=== PATIENT | male | born 1960 | race Caucasian/White ===

== ENCOUNTER → 2016-10-30 | Outpatient (CLI) | payer MEDICARE ==
--- NOTE | 2016-10-30 08:47 | MR ---
EXAMINATION TYPE: MR cervical spine wo/w con DATE OF EXAM ORDERED: 10/30/2016 8:36 AM HISTORY: Cervical post laminectomy M96.1 radiculopathy M54.12. TECHNOLOGIST HISTORY AT TIME OF EXAM: Cervical post laminectomy radiculopathy IV CONTRAST: 15 of MultiHance COMPARISON: None. TECHNIQUE: Multiplanar, multiecho imaging of the cervical spine was obtained with and without the in travenous administration of 15 of MultiHance on a 1.5 dolores magnet. FINDINGS: There has been a previous ACDF at C5-6. There is a mild retrograde listhesis of C3 on C4 an d C4 on C5. Alignment is otherwise normal. Atlantoaxial relationships are normal. There is a normal craniocervical junction. There is a minimally prominent central canal. Cord signal is otherwise normal. At C2-C3, there is a tiny central disc displacement mildly deforming the thecal sac without cord cont act. At C3-C4, there is bilateral intervertebral foraminal narrowing. There is a diffuse disc displacement slightly eccentric towards the right. This is deforming the thecal sac without cord contact. There i s mild facet arthropathy. The uncovertebral joints are unremarkable. At C4-C5, there is disc space loss. There is bilateral intervertebral foraminal narrowing worse on th e right than the left. There is a small, diffuse disc displacement deforming the thecal sac with cord contact but without compression. There is mild uncovertebral joint disease. There is mild facet arth ropathy. At C5-C6, this level is fused. There is mild right-sided intervertebral foraminal narrowing. The face ts are unremarkable. The uncovertebral joints are obscured. At C6-C7, there is disc space loss. There is a diffuse disc displacement deforming the thecal sac wit h cord contact. There is bilateral intervertebral foraminal narrowing. The facets are unremarkable. T he uncovertebral joints are obscured. At C7-T1, no definite abnormality is seen. IMPRESSION: 1. POSTSURGICAL CHANGE. 2. DIFFUSE DEGENERATIVE DISC DISEASE. 3. MULTILEVEL INTERVERTEBRAL FORAMINAL NARROWING.
== END | disposition home or self-care (01) ==
LOC: RADMRIMAIN 08:00
PROVIDERS: ATTEND Anesthesiology Pain Medicine
DX: M50.10 Cervical disc disorder with radiculopathy, unspecified cervical region (principal); M99.71 Connective tissue and disc stenosis of intervertebral foramina of cervical region
CPT/HCPCS: 72156; A9577

== ENCOUNTER 2018-05-06 10:28 | Emergency (ER) | payer MEDICARE ==
[2018-05-06 10:41] VITALS: BP 147/86; PULSE 75; RESP 20; TEMP 98
[2018-05-06] MEDS ORDERED: CLINDAMYCIN 150 MG/ML 4 ML VIAL IM STA (10:58)
--- NOTE | 2018-05-06 11:06 | ED ---
General Adult HPI - General Chief complaint: Dental/Oral Stated complaint: facial swelling Time Seen by Provider: 05/06/18 10:46 Source: patient, RN notes reviewed Mode of arrival: ambulatory Limitations: no limitations - History of Present Illness Initial comments: Patient is a pleasant 57-year-old male presenting to the emergency Department with complaints of dental pain. Patient has known poor dentition. Patient did go to urgent care 2 days ago and was started on clindamycin 300 mg 3 times a day. Patient does have a history of similar problems previously. Patient is having some swelling of his left upper face. No eye pain or visual changes. Patient states his eyelid was a little bit swollen earlier and that has improved. No fevers. - Related Data Home Medications Medication Instructions Recorded Confirmed Albuterol Inhaler [Ventolin Hfa 1 - 2 puff INHALATION RT-Q6H PRN 09/24/15 Inhaler] Budesonide/Formoterol Fumarate 2 puff INHALATION RT-BID 09/24/15 10/25/15 [Symbicort 160-4.5 Mcg Inhaler] Tiotropium 18 Mcg/Puff [Spiriva] 1 cap INHALATION RT-DAILY 09/24/15 10/25/15 oxyCODONE HCL/ACETAMINOPHEN 1 tab PO Q6HR PRN 09/24/15 10/25/15 [Percocet 10-325 mg] Albuterol Nebulized [Ventolin 2.5 mg INHALATION RT-TID 09/25/15 10/25/15 Nebulized] Previous Rx's Medication Instructions Recorded Aspirin 81 mg PO DAILY #30 chewable 09/25/15 Isosorbide Mononitrate ER [Imdur] 30 mg PO DAILY #30 tab.er.24h 09/25/15 Nitroglycerin Sl Tabs [Nitrostat] 0.4 mg SUBLINGUAL Q5M PRN #1 bottle 09/25/15 Ciprofloxacin HCl [Cipro] 500 mg PO Q12HR #14 tablet 10/25/15 Dicyclomine [Bentyl] 10 mg PO TID #20 capsule 10/25/15 Ondansetron Odt [Zofran ODT] 4 mg PO Q8HR PRN #20 tab 10/25/15 Clindamycin [Cleocin] 150 mg PO TID #30 capsule 05/06/18 Ibuprofen [Motrin] 800 mg PO TID PRN #20 tab 05/06/18 Allergies Allergy/AdvReac Type Severity Reaction Status Date / Time Penicillins Allergy Rash/Hives Verified 05/06/18 10:41 shellfish derived [Shellfish] Allergy Anaphylaxis Verified 05/06/18 10:41 Review of Systems ROS Statement: Those systems with pertinent positive or pertinent negative responses have been documented in the HPI. ROS Other: All systems not noted in ROS Statement are negative. Constitutional: Denies: fever Eyes: Denies: eye pain, vision change ENT: Reports: dental pain Respiratory: Denies: cough Cardiovascular: Denies: chest pain Endocrine: Denies: fatigue Gastrointestinal: Denies: abdominal pain Genitourinary: Denies: dysuria Musculoskeletal: Denies: back pain Skin: Denies: rash Neurological: Denies: weakness Past Medical History Past Medical History: COPD Additional Past Medical History / Comment(s): Pneumothorax, Emphesema History of Any Multi-Drug Resistant Organisms: None Reported Past Surgical History: Back Surgery, Orthopedic Surgery Additional Past Surgical History / Comment(s): Neck surg Past Anesthesia/Blood Transfusion Reactions: No Reported Reaction Past Psychological History: No Psychological Hx Reported Smoking Status: Former smoker Past Alcohol Use History: None Reported Past Drug Use History: Marijuana - Past Family History Mother Family Medical History: Myocardial Infarction ([place]) Additional Family Medical History / Comment(s): at 42 Father Family Medical History: Myocardial Infarction ([place]) Additional Family Medical History / Comment(s): at 67 General Exam Limitations: no limitations General appearance: alert, in no apparent distress Head exam: Present: atraumatic Eye exam: Present: normal appearance, PERRL, EOMI, other (Mild swelling of the lower eyelid extending from the maxillary region). Absent: conjunctival injection, nystagmus, periorbital tenderness ENT exam: Present: other (Poor dentition with multiple caries and fractured/ missing teeth. There is minimal swelling and moderate to severe tenderness left second premolar. There is some mild left maxillary swelling. No drainable abscess is visualized. No airway involvement.) Neck exam: Present: normal inspection Respiratory exam: Present: normal lung sounds bilaterally Cardiovascular Exam: Present: regular rate, normal rhythm GI/Abdominal exam: Present: soft. Absent: tenderness Extremities exam: Present: normal inspection Neurological exam: Present: alert Psychiatric exam: Present: normal affect, normal mood Skin exam: Present: normal color Course Vital Signs 05/06/18 10:39 Temperature 98.0 F Pulse Rate 75 Respiratory 20 Rate Blood Pressure 147/86 O2 Sat by Pulse 99 Oximetry Medical Decision Making - Medical Decision Making Patient will be provided additional clindamycin. Patient does request Motrin 800. Patient states previously this is been the only thing that works well for him. Disposition Clinical Impression: Toothache Disposition: HOME SELF-CARE Condition: Stable Instructions: Dental Abscess (ED), Toothache (ED) Additional Instructions: Please follow-up with dentist and primary care physician in the next day or 2 for recheck. If symptoms worsen please do return to the emergency department. You may need further treatment with inpatient IV antibiotics or opening of the area or other. Return for increased pain, swelling, fevers, eye problems, redness, worsening symptoms or other concerns. Please take the additional clindamycin for a total of 450 mg 3 times daily. Prescriptions: Clindamycin [Cleocin] 150 mg PO TID #30 capsule Ibuprofen [Motrin] 800 mg PO TID PRN #20 tab PRN Reason: Pain Is patient prescribed a controlled substance at d/c from ED?: No Referrals: Luci Dubon DO [Primary Care Provider] - 1-2 days Time of Disposition: 11:05
== END 2018-05-06 11:24 | disposition home or self-care (01) ==
LOC: EC 10:28
DX: K08.89 Other specified disorders of teeth and supporting structures (principal); J44.9 Chronic obstructive pulmonary disease, unspecified; Z87.891 Personal history of nicotine dependence; Z79.51 Long term (current) use of inhaled steroids; Z79.899 Other long term (current) drug therapy; Z88.0 Allergy status to penicillin; Z91.013 Allergy to seafood
CPT/HCPCS: 96372; 99282

== ENCOUNTER → 2018-07-08 | Outpatient (CLI) | payer MEDICARE ==
--- NOTE | 2018-07-08 16:50 | CTL ---
EXAMINATION TYPE: CT Low Dose Lung DATE OF EXAM ORDERED: 07/08/2018 HISTORY: Personal history tobacco use. Lung cancer screening CT DLP: 58.[address] CTDI: 1.4 mGy Automated exposure control for dose reduction was used. SCREENING VISIT: 1 COMPARISON: None TECHNIQUE: Low dose computed tomography scan was performed through the chest at 1 mm thick sections a nd reconstructed images in the coronal plane at [address] DIAGNOSTIC QUALITY: Satisfactory FINDINGS: LUNG NODULES: None. LUNGS: COPD: Severity: Mild Fibrosis: Severity: Mild Lymph nodes: None Other findings: RIGHT PLEURAL SPACE: Effusion: None Calcification: None Thickening: Apical pleural thickening is present Pneumothorax: None LEFT PLEURAL SPACE: Effusion: None Calcification: None Thickening: Apical pleural thickening again noted Pneumothorax: None HEART: Heart Size: Small Coronary calcification: None Pericardial effusion: None OTHER FINDINGS: Upper abdomen: Unremarkable Bony thorax: Unremarkable Supraclavicular region: Unremarkable Other: IMPRESSION: Negative FOLLOW UP CT CHEST RECOMMENDATION: [address] LUNG RAD: 1
== END | disposition home or self-care (01) ==
LOC: RADCTMAIN 15:30
PROVIDERS: ATTEND Family Medicine
DX: Z12.2 Encounter for screening for malignant neoplasm of respiratory organs (principal); Z87.891 Personal history of nicotine dependence

== ENCOUNTER → 2018-10-05 | Outpatient (CLI) | payer MEDICARE ==
--- NOTE | 2018-10-05 14:34 | XR ---
EXAMINATION TYPE: XR foot complete RT DATE OF EXAM: 10/05/2018 CLINICAL HISTORY: pain TECHNIQUE: Frontal, lateral and oblique images of the right foot are obtained. COMPARISON: None. FINDINGS: There is no acute fracture/dislocation evident. Severe degenerative narrowing first metata rsal phalangeal joint spur formation noted and subchondral sclerosis. The overlying soft tissue appea rs unremarkable. IMPRESSION: There is no acute fracture or dislocation. ICD 10 NO FRACTURE, INITIAL EVALUATION
== END | disposition home or self-care (01) ==
LOC: RADXRMAIN 14:11
PROVIDERS: ATTEND Physician Assistant
DX: M79.671 Pain in right foot (principal)

== ENCOUNTER 2018-10-30 08:06 | Observation (INO) | payer MEDICARE ==
[2018-10-30] MEDS ORDERED: SODIUM CHLORIDE 0.9% 1,000 ML IV STA (08:45)
[2018-10-30] MEDS ORDERED: KETOROLAC 30 MG/ML 1 ML VIAL IVP STA (08:45)
[2018-10-30] MEDS ORDERED: ONDANSETRON 4 MG/2 ML VIAL IVP STA (08:45)
[2018-10-30] MEDS ORDERED: DICYCLOMINE 10 MG/ML 2 ML AMP IM STA (08:45)
[2018-10-30] MEDS ORDERED: methylPREDNISolone SOD SUCCI 125 MG/2 ML VIAL IV STA (08:49)
[2018-10-30] MEDS ORDERED: FAMOTIDINE 20 MG/2 ML VIAL IV STA (08:49)
[2018-10-30] MEDS ORDERED: diphenhydrAMINE 50 MG/ML 1 ML VIAL IVP STA (08:50)
--- NOTE | 2018-10-30 08:50 | ED ---
General Adult HPI <Viktor eDwey - Last Filed: 10/30/18 12:48> - General Source: patient, RN notes reviewed Mode of arrival: ambulatory Limitations: no limitations <Carlos Alberto Crabtree - Last Filed: 10/30/18 13:11> - General Chief complaint: Nausea/Vomiting/Diarrhea Stated complaint: vomiting Time Seen by Provider: 10/30/18 08:14 - History of Present Illness Initial comments: 58-year-old male with a past medical history of COPD presents to the emergency department for nausea vomiting and diarrhea 6 hours. Patient states that around 2 AM this morning he started to have several episodes of vomiting states this lasted until about 4 AM when he has since been dry heaving. Patient states he has had about 3 episodes of diarrhea. Denies any melena or hematochezia. Denies vomiting blood. States the pain is mostly his mid upper abdomen and is cramping in nature. Denies any fevers or chills. Denies having eaten anything suspicious, did eat an egg salad sandwich for dinner last night. Denies any fevers or chills but does state he feels like he is sweating.Patient has no other complaints at this time including shortness of breath, chest pain, headache, or visual changes. (Carlos Alberto Crabtree) - Related Data Home Medications Medication Instructions Recorded Confirmed oxyCODONE HCL/ACETAMINOPHEN 1 tab PO Q6HR PRN 09/24/15 10/30/18 [Percocet 10-325 mg] Albuterol Inhaler [Ventolin Hfa 1 - 2 puff INHALATION RT-Q6H PRN 10/30/18 Inhaler] Budesonide-Formot 160-4.5 Mcg 2 puff INHALATION RT-BID 10/30/18 10/30/18 [Symbicort 160-4.5 Mcg Inhaler] Allergies Allergy/AdvReac Type Severity Reaction Status Date / Time Penicillins Allergy Rash/Hives Verified 10/30/18 08:22 shellfish derived [Shellfish] Allergy Anaphylaxis Verified 10/30/18 08:22 Review of Systems ROS Other: All systems not noted in ROS Statement are negative. <Viktor Dewey - Last Filed: 10/30/18 12:48> ROS Other: All systems not noted in ROS Statement are negative. <Bro,Carlos Alberto P - Last Filed: 10/30/18 13:11> ROS Statement: Those systems with pertinent positive or pertinent negative responses have been documented in the HPI. Past Medical History Past Medical History: COPD Additional Past Medical History / Comment(s): Pneumothorax, Emphesema History of Any Multi-Drug Resistant Organisms: None Reported Past Surgical History: Back Surgery, Orthopedic Surgery Additional Past Surgical History / Comment(s): Neck surg Past Anesthesia/Blood Transfusion Reactions: No Reported Reaction Past Psychological History: No Psychological Hx Reported Smoking Status: Former smoker Past Alcohol Use History: None Reported Past Drug Use History: Marijuana - Past Family History Mother Family Medical History: Myocardial Infarction ([place]) Additional Family Medical History / Comment(s): at 42 Father Family Medical History: Myocardial Infarction ([place]) Additional Family Medical History / Comment(s): at 67 <Carlos Alberto Crabtree P - Last Filed: 10/30/18 13:11> General Exam Limitations: no limitations General appearance: alert, in no apparent distress Head exam: Present: atraumatic, normocephalic, normal inspection Eye exam: Present: normal appearance, PERRL, EOMI. Absent: scleral icterus, conjunctival injection, periorbital swelling ENT exam: Present: normal exam, mucous membranes moist Neck exam: Present: normal inspection, full ROM. Absent: tenderness, meningismus, lymphadenopathy Respiratory exam: Present: normal lung sounds bilaterally. Absent: respiratory distress, wheezes, rales, rhonchi, stridor Cardiovascular Exam: Present: regular rate, normal rhythm, normal heart sounds. Absent: systolic murmur, diastolic murmur, rubs, gallop, clicks GI/Abdominal exam: Present: soft, tenderness (generalized upper abdominal tenderness with guarding), normal bowel sounds. 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 (Carlos Alberto Crabtree) Medical Decision Making - Lab Data Result diagrams: 10/30/18 08:25 10/30/18 08:25 <Viktor Dewey - Last Filed: 10/30/18 12:48> - Lab Data Result diagrams: 10/30/18 08:25 10/30/18 08:25 <Carlos Alberto Crabtree - Last Filed: 10/30/18 13:11> - Medical Decision Making Chart reviewed. Case discussed with practitioner Carlos Alberto. Case also discussed with Dr. River, who will admit for Dr. Chavez. Consult placed for Dr. Conley. (Viktor Dewey) 58-year-old male with COPD presents for nausea vomiting and diarrhea 6 hours. Patient also complaining of a mostly upper abdominal pain. Vitals are stable, patient is afebrile. On exam patient does have tenderness of the generalized abdomen worse in the upper areas with guarding present on exam. Vitals are stable. Patient is afebrile CBC does show a white count of 14. CMP unremarkable. Urine does show 2+ ketones, patient given fluids. CT abdomen and pelvis was ordered which shows a normal appendix without abnormal thickening however adjacent to the appendix there is mild straining which extends to the right kidney. There is also a curvilinear fluid adjacent to the right kidney which could be reflective of a ruptured cyst or underlying nephritis. Difficult to exclude appendicitis without certainty. Patient was started on Rocephin and Flagyl as he is penicillin ALLERGIC. Dr. Conley will be consulted. Dr. river accepts this admission. Pain under control at this time. (Carlos Alberto Crabtree) - Lab Data Lab Results 10/30/18 10/30/18 10/30/18 Range/Units 08:25 08:25 11:35 WBC 14.1 H (3.8-10.6) k/uL RBC 4.33 (4.30-5.90) m/uL Hgb 13.8 (13.0-17.5) gm/dL Hct 42.3 (39.0-53.0) % MCV 97.7 (80.0-100.0) fL MCH 31.8 (25.0-35.0) pg MCHC 32.6 (31.0-37.0) g/dL RDW 14.1 (11.5-15.5) % Plt Count 370 (150-450) k/uL Neutrophils % 80 % Lymphocytes % 13 % Monocytes % 5 % Eosinophils % 1 % Basophils % 1 % Neutrophils # 11.2 H (1.3-7.7) k/uL Lymphocytes # 1.8 (1.0-4.8) k/uL Monocytes # 0.6 (0-1.0) k/uL Eosinophils # 0.1 (0-0.7) k/uL Basophils # 0.1 (0-0.2) k/uL Sodium 140 (137-145) mmol/L Potassium 4.0 (3.5-5.1) mmol/L Chloride 103 (98-107) mmol/L Carbon Dioxide 27 (22-30) mmol/L Anion Gap 10 mmol/L BUN 15 (9-20) mg/dL Creatinine 0.88 (0.66-1.25) mg/dL Est GFR (CKD-EPI)AfAm >90 (>60 ml/min/1.73 sqM) Est GFR (CKD-EPI)NonAf >90 (>60 ml/min/1.73 sqM) Glucose 147 H (74-99) mg/dL Calcium 9.6 (8.4-10.2) mg/dL Total Bilirubin 0.8 (0.2-1.3) mg/dL AST 24 (17-59) U/L ALT 17 L (21-72) U/L Alkaline Phosphatase 99 (38-126) U/L Total Protein 7.4 (6.3-8.2) g/dL Albumin 4.5 (3.5-5.0) g/dL Amylase 79 (30-110) U/L Lipase 30 (23-300) U/L Urine Color Yellow Urine Appearance Clear (Clear) Urine pH 8.0 (5.0-8.0) Ur Specific [place] 1.041 H (1.001-1.035) Urine Protein Trace H (Negative) Urine Glucose (UA) Negative (Negative) Urine Ketones 2+ H (Negative) Urine Blood Small H (Negative) Urine Nitrite Negative (Negative) Urine Bilirubin Negative (Negative) Urine Urobilinogen <2.0 (<2.0) mg/dL Ur Leukocyte Esterase Negative (Negative) Urine RBC 8 H (0-5) /hpf Urine WBC 1 (0-5) /hpf Urine Mucus Occasional H (None) /hpf Disposition <Viktor Dewey - Last Filed: 10/30/18 12:48> Is patient prescribed a controlled substance at d/c from ED?: No Time of Disposition: 13:11 <Carlos Alberto Crabtree - Last Filed: 10/30/18 13:11> Clinical Impression: Nausea vomiting and diarrhea, Abdominal pain, Abnormal CT of the abdomen Disposition: ADMITTED IP TO THIS HOSP Condition: Fair Referrals: Elías Chavez DO [Primary Care Provider] - 1-2 days
[2018-10-30 09:06] LABS: Basophils # (A) 0.1 k/uL (0-0.2); Basophils % (A) 1 %; Eosinophils # (A) 0.1 k/uL (0-0.7); Eosinophils % (A) 1 %; HCT 42.3 % (39.0-53.0); HGB 13.8 gm/dL (13.0-17.5); Lymphocytes # (A) 1.8 k/uL (1.0-4.8); Lymphocytes % (A) 13 %; MCH 31.8 pg (25.0-35.0); MCHC 32.6 g/dL (31.0-37.0); MCV 97.7 fL (80.0-100.0); Mean Platelet Volume 7.2; Monocytes # (A) 0.6 k/uL (0-1.0); Monocytes % (A) 5 %; Neutrophils # (A) 11.2 k/uL (1.3-7.7); Neutrophils % (A) 80 %; Platelet Count 370 k/uL (150-450); RBC 4.33 m/uL (4.30-5.90); RDW 14.1 % (11.5-15.5); WBC 14.1 k/uL (3.8-10.6)
[2018-10-30 09:15] LABS: ALT 17 U/L (21-72); AST 24 U/L (17-59); Albumin 4.5 g/dL (3.5-5.0); Alkaline Phosphatase 99 U/L (38-126); Amylase 79 U/L (30-110); Anion Gap 10 mmol/L; Blood Urea Nitrogen 15 mg/dL (9-20); Calcium 9.6 mg/dL (8.4-10.2); Carbon Dioxide 27 mmol/L (22-30); Chloride 103 mmol/L (98-107); Glucose 147 mg/dL (74-99); Lipase 30 U/L (23-300); Sodium 140 mmol/L (137-145); Total Bilirubin 0.8 mg/dL (0.2-1.3); Total Protein 7.4 g/dL (6.3-8.2)
--- NOTE | 2018-10-30 11:40 | CT ---
EXAMINATION TYPE: CT abdomen pelvis w con DATE OF EXAM: 10/30/2018 COMPARISON: 10/25/2015 HISTORY: Vomitting CT DLP: 538.5 mGycm CONTRAST: CT scan of the abdomen and pelvis is performed without Oral Contrast and with IV Contrast, patient in jected with 100 ml mL of Isovue 300. FINDINGS: LUNG BASES-: No visible nodule. No infiltrate. LIVER/GB: No calcified gallstones. No space occupying hepatic lesion. Biliary tree is of normal ca liber. PANCREAS: No inflammation. No distinct mass. SPLEEN: No splenic enlargement. No lesion seen. ADRENALS: No nodule. No thickening. KIDNEYS/BLADDER: No hydronephrosis. No nephrolithiasis. Simple cyst midpole right kidney measures 2 .7 cm. There is mild stranding adjacent to the right kidney of uncertain etiology. Urinary bladder gr ossly unremarkable. BOWEL: The appendix has a normal appearance without abnormal thickening. Noted adjacent to the append ix however is mild stranding which extends to the right kidney. There is curvilinear fluid adjacent t o the right kidney which could be reflective of a ruptured cyst or underlying nephritis. Correlate cl inically. I do not believe the findings reflect acute appendicitis although this is difficult to excl ude with certainty. Normal bowel caliber. No inflammation. GENITAL ORGANS: No gross abnormality. LYMPH NODES: No greater than 1cm abdominal or pelvic lymph nodes are appreciated. AORTA: No significant abnormality. OSSEOUS STRUCTURES: Postoperative changes lumbar spine. Anterolisthesis L5 on S1. OTHER: No significant additional abnormality is seen. IMPRESSION: 1. The appendix has a normal appearance without abnormal thickening. Noted adjacent to the appendix h owever is mild stranding which extends to the right kidney. There is curvilinear fluid adjacent to th e right kidney which could be reflective of a ruptured cyst or underlying nephritis. Correlate clinic ally. I do not believe the findings reflect acute appendicitis although this is difficult to exclude with certainty.
[2018-10-30 11:56] LABS: Appearance,Urine Clear (Clear); Bilirubin,Urine Negative (Negative); Blood,Urine Small (Negative); Color,Urine Yellow; Glucose,Urine (UA) Negative (Negative); Ketones,Urine 2+ (Negative); Leukocyte Esterase,Urine Negative (Negative); Mucus,Urine Occasional /hpf; Nitrite,Urine Negative (Negative); Protein,Urine Trace (Negative); RBC,Urine 8 /hpf (0-5); Specific Gravity,Urine 1.041 (1.001-1.035); Urobilinogen,Urine <2.0 mg/dL (<2.0); WBC,Urine 1 /hpf (0-5)
[2018-10-30] MEDS ORDERED: MORPHINE SULFATE 4 MG/ML SYRINGE IVP STA (12:07)
[2018-10-30] MEDS ORDERED: NALOXONE 0.4 MG/ML 1 ML VIAL IV PRN (13:03)
[2018-10-30] MEDS ORDERED: ONDANSETRON 4 MG/2 ML VIAL IVP PRN (13:03)
[2018-10-30] MEDS ORDERED: MORPHINE SULFATE 4 MG/ML SYRINGE IV PRN (13:03)
[2018-10-30] MEDS ORDERED: metroNIDAZOLE-NS PMX 500 MG in SALINE 1 100ML.BAG IVPB STA (13:07)
[2018-10-30] MEDS ORDERED: cefTRIAXone IN SWFI 1,000 MG/10 ML SYRINGE IVP STA (13:07)
[2018-10-30] MEDS: SODIUM CHLORIDE 0.9% 1,000 ML IV SCH ×2 (13:59→21:37)
[2018-10-30] MEDS ORDERED: ALBUTEROL NEBULIZED 2.5 MG/3 ML INHALATION PRN (14:23)
[2018-10-30 14:33] VITALS: BMI 20.3
[2018-10-30] MEDS: oxyCODONE-APAP 10-325MG 1 EACH TAB PO PRN ×2 (14:47→20:26)
--- NOTE | 2018-10-30 18:37 | P.GSCN ---
History of Present Illness Consult date: 10/30/18 History of present illness: Patient's abdominal pain is completely resolved. May start regular diet. Past Medical History Past Medical History: COPD Additional Past Medical History / Comment(s): Pneumothorax, Emphesema History of Any Multi-Drug Resistant Organisms: None Reported Past Surgical History: Back Surgery, Orthopedic Surgery Additional Past Surgical History / Comment(s): Neck surg Past Anesthesia/Blood Transfusion Reactions: No Reported Reaction Past Psychological History: No Psychological Hx Reported Additional Psychological History / Comment(s): lives with , dtr, son and a LOT of children Smoking Status: Former smoker Past Alcohol Use History: None Reported Additional Past Alcohol Use History / Comment(s): medical marijuana card Past Drug Use History: Marijuana - Past Family History Mother Family Medical History: Myocardial Infarction ([place]) Additional Family Medical History / Comment(s): at 42 Father Family Medical History: Myocardial Infarction ([place]) Additional Family Medical History / Comment(s): at 67 Medications and Allergies Home Medications Medication Instructions Recorded Confirmed Type oxyCODONE HCL/ACETAMINOPHEN 1 tab PO Q6HR PRN 09/24/15 10/30/18 History [Percocet 10-325 mg] Albuterol Inhaler [Ventolin Hfa 1 - 2 puff INHALATION RT-Q6H PRN 10/30/18 10/30/18 History Inhaler] Aspirin [Children's Aspirin] 81 mg PO DAILY 10/30/18 10/30/18 History Budesonide-Formot 160-4.5 Mcg 2 puff INHALATION RT-BID 10/30/18 10/30/18 History [Symbicort 160-4.5 Mcg Inhaler] Allergies Allergy/AdvReac Type Severity Reaction Status Date / Time Penicillins Allergy Rash/Hives Verified 10/30/18 08:22 shellfish derived [Shellfish] Allergy Anaphylaxis Verified 10/30/18 08:22 Surgical - Exam Vital Signs Temp Pulse Resp BP Pulse Ox 97 F L 61 16 158/74 99 10/30/18 08:10 10/30/18 08:10 10/30/18 08:10 10/30/18 08:10 10/30/18 08:10 Results - Labs 10/30/18 08:25 10/30/18 08:25 Abnormal Lab Results - Last 24 Hours (Table) 05/10/30/18 10/30/18 Range/Units 08:25 08:25 11:35 WBC 14.1 H (3.8-10.6) k/uL Neutrophils # 11.2 H (1.3-7.7) k/uL Glucose 147 H (74-99) mg/dL ALT 17 L (21-72) U/L Ur Specific [place] 1.041 H (1.001-1.035) Urine Protein Trace H (Negative) Urine Ketones 2+ H (Negative) Urine Blood Small H (Negative) Urine RBC 8 H (0-5) /hpf Urine Mucus Occasional H (None) /hpf Diabetes panel 10/30/18 Range/Units 08:25 Sodium 140 (137-145) mmol/L Potassium 4.0 (3.5-5.1) mmol/L Chloride 103 (98-107) mmol/L Carbon Dioxide 27 (22-30) mmol/L BUN 15 (9-20) mg/dL Creatinine 0.88 (0.66-1.25) mg/dL Glucose 147 H (74-99) mg/dL Calcium 9.6 (8.4-10.2) mg/dL AST 24 (17-59) U/L ALT 17 L (21-72) U/L Alkaline Phosphatase 99 (38-126) U/L Total Protein 7.4 (6.3-8.2) g/dL Albumin 4.5 (3.5-5.0) g/dL Calcium panel 10/30/18 Range/Units 08:25 Calcium 9.6 (8.4-10.2) mg/dL Albumin 4.5 (3.5-5.0) g/dL Pituitary panel 10/30/18 Range/Units 08:25 Sodium 140 (137-145) mmol/L Potassium 4.0 (3.5-5.1) mmol/L Chloride 103 (98-107) mmol/L Carbon Dioxide 27 (22-30) mmol/L BUN 15 (9-20) mg/dL Creatinine 0.88 (0.66-1.25) mg/dL Glucose 147 H (74-99) mg/dL Calcium 9.6 (8.4-10.2) mg/dL Adrenal panel 10/30/18 Range/Units 08:25 Sodium 140 (137-145) mmol/L Potassium 4.0 (3.5-5.1) mmol/L Chloride 103 (98-107) mmol/L Carbon Dioxide 27 (22-30) mmol/L BUN 15 (9-20) mg/dL Creatinine 0.88 (0.66-1.25) mg/dL Glucose 147 H (74-99) mg/dL Calcium 9.6 (8.4-10.2) mg/dL Total Bilirubin 0.8 (0.2-1.3) mg/dL AST 24 (17-59) U/L ALT 17 L (21-72) U/L Alkaline Phosphatase 99 (38-126) U/L Total Protein 7.4 (6.3-8.2) g/dL Albumin 4.5 (3.5-5.0) g/dL
[2018-10-30] MEDS: SYMBICORT 160-4.5 MCG INHALER INHALATION SCH (19:33)
[2018-10-30 23:09] VITALS: RESP 18
[2018-10-31] MEDS: SODIUM CHLORIDE 0.9% 1,000 ML IV SCH (05:12)
[2018-10-31 06:09] VITALS: BP 126/65; PULSE 75; TEMP 98.5
[2018-10-31] MEDS: oxyCODONE-APAP 10-325MG 1 EACH TAB PO PRN (07:20)
[2018-10-31] MEDS ORDERED: ASPIRIN 81 MG PO SCH (09:00)
[2018-10-31] MEDS: SYMBICORT 160-4.5 MCG INHALER INHALATION SCH (09:03)
[2018-10-31] MEDS ORDERED: ENOXAPARIN 40 MG/0.4 ML SYRINGE SQ SCH (12:45)
--- NOTE | 2018-10-31 13:52 | HP ---
HISTORY AND PHYSICAL DATE OF ADMISSION: 10/29/2018. DATE OF SERVICE: 10/31/2018. PRESENTING COMPLAINT: Nausea, vomiting, diarrhea. HISTORY OF PRESENTING COMPLAINT: A very pleasant 58-year-old patient who yesterday morning started having significant generalized abdominal pain, cramping, started with nausea vomiting. Had at least 3 large bowel movements some was diarrhea. [place] hot, cold, tired and run down. The patient the previous night had eaten some eduardo chips and an egg sandwich. The egg was from his own fridge. No other family members got sick. The patient was feeling tired and run down. He presented to the ER, was started on IV fluids. No fever was documented. When I saw this patient this morning, patient was feeling much better. Did tolerate some diet. Feeling more restful. No further diarrhea. Abdominal pain greatly improved. REVIEW OF SYSTEMS: CONSTITUTIONAL: Tired. HEENT: None. RESPIRATORY: Baseline some shortness of breath. CARDIOVASCULAR: None. GASTROINTESTINAL: As above. GENITOURINARY: None. MUSCULOSKELETAL: Arthritic pain in the hands. DERMATOLOGICAL: None. HEMATOLOGICAL: None. NEUROLOGIC: None. PAST MEDICAL HISTORY: COPD, pneumothorax, arthritis. PAST SURGICAL HISTORY: Back surgery, neck surgery. SOCIAL HISTORY: . Does medical marijuana. Smoked a pack a day for close to 47 years stopped 3 years ago. Alcohol none. Has medical marijuana card. FAMILY HISTORY: Myocardial infarction. HOME MEDICATIONS: 1. Percocet 10 one tablet every 6 p.r.n. 2. Aspirin 81 mg a day. 3. Symbicort 160/4.5, 2 puffs b.i.d. 4. Ventolin HFA 1 or 2 puffs every 6 p.r.n. ALLERGIES: PENICILLIN AND SHELLFISH. PHYSICAL EXAMINATION: VITAL SIGNS: On presentation, temperature pulse 87, respirations 16, blood pressure 150/74, pulse ox 99% on room air. GENERAL APPEARANCE: Average built, lying in bed, not in distress. EYES: Pupils equal. Conjunctivae normal. HEENT: External nose and ears normal. Oral cavity normal. NECK: JVD not raised. Mass not palpable. Respiratory effort normal. LUNGS: Slightly decreased breath sounds. CARDIOVASCULAR: 1st and 2nd sounds. No edema. ABDOMEN: Soft, minimal tenderness. No guarding or rigidity. Bowel sounds are present. LYMPHATIC: No lymph nodes palpable in the neck and axilla. PSYCHIATRY: Alert and oriented x3. Mood and affect normal. NEUROLOGICAL: Pupils equal. Cranial nerves grossly intact. Power and sensation grossly intact. MUSCULOSKELETAL: Evidence of osteoarthritis especially in the hands. INVESTIGATIONS: White count 14.1, hemoglobin 13.8, potassium 4.0. BUN and creatinine normal. CT scan of the abdomen and pelvis nonspecific. ASSESSMENT: 1. Acute severe gastroenteritis, typically self-limiting, no fever documented. Had a white count. Clinically patient is much better, actually did tolerate some diet this morning. No further diarrhea. 2. COPD in an ex-smoker. 3. Primary osteoarthritis of the hands. PLAN: Patient's diet will be advanced. The patient was told to remain on a soft bland diet. The patient did get IV fluids overnight, Disposition will be home. Diet soft, bland. Follow up with Dr. Chavez in 3 days. CONSULTATIONS: Dr. Smith from General surgery. MMTABITHAL / VINCENTN: [id number] /
--- NOTE | 2018-10-31 17:49 | DS ---
DISCHARGE SUMMARY DATE OF ADMISSION: 10/30/2018. DATE OF DISCHARGE: 10/31/2018. For my discharge summary, please refer to my H and P from earlier which is both a history physical and discharge summary on this patient. MMODL / IJN: [id number] /
== END 2018-10-31 13:27 | disposition home or self-care (01) ==
LOC: EC 08:06 → 4MS4W 13:03
PROVIDERS: ADMIT Hospitalist; ATTEND Hospitalist
DX: K52.9 Noninfective gastroenteritis and colitis, unspecified (principal); J43.9 Emphysema, unspecified; M19.042 Primary osteoarthritis, left hand; M19.041 Primary osteoarthritis, right hand; R94.8 Abnormal results of function studies of other organs and systems; Z87.891 Personal history of nicotine dependence; Z79.82 Long term (current) use of aspirin; Z79.51 Long term (current) use of inhaled steroids; Z79.891 Long term (current) use of opiate analgesic; Z88.0 Allergy status to penicillin; Z91.013 Allergy to seafood; Z82.49 Family history of ischemic heart disease and other diseases of the circulatory system
CPT/HCPCS: 96361 ×3; 96366; 96365; 96375; 99285; 36415; 94640 ×2; 80053; 82150; 83690; 85025; 81001; 87040; 74177; G0378 ×2; J2270; J1200; J2930; J2405; J0696; J1885; Q9967

== ENCOUNTER → 2019-02-12 | Outpatient (CLI) | payer MEDICARE ==
--- NOTE | 2019-02-12 07:32 | US ---
EXAMINATION TYPE: US duplex aorta DATE OF EXAM: 02/12/2019 COMPARISON: NONE CLINICAL HISTORY: Z13.6 Screening for Cardiovascular Disorders. Patient states no symptoms EXAM MEASUREMENTS: Abdominal Aorta: Proximal: 2.3 x 2.8cm Mid: 1.7 x 2.1cm Distal: 1.3 x 1.7cm Right Iliac: 0.9 x 1.2cm Left Iliac: 0.9 x 1.1cm Borderline ectatic proximal aorta, no AAA seen at this time. Mild atherosclerosis throughout the abdo joyce aorta. IMPRESSION: Upper abdominal aorta is upper limits of normal size but does not yet meet criteria for a neurysmal dilatation. Mild atherosclerosis is seen throughout.
== END | disposition home or self-care (01) ==
LOC: RADUSWWP 06:58
PROVIDERS: ATTEND Family Medicine
DX: Z13.6 Encounter for screening for cardiovascular disorders (principal); I70.0 Atherosclerosis of aorta
CPT/HCPCS: 93979

== ENCOUNTER 2019-02-25 05:40 | Day surgery (SDC) | payer MEDICARE ==
[2019-02-23 12:20] VITALS: BMI 19.1
[2019-02-25] MEDS ORDERED: DEXAMETHASONE SOD PHOSPHATE 10 MG/ML 1 ML VIAL IV ONE (05:42)
[2019-02-25] MEDS ORDERED: LIDOCAINE 1% 20 ML VIAL (10MG/ML) FOR IV START INTRADERMA PRN (05:42)
[2019-02-25] MEDS ORDERED: ONDANSETRON 4 MG/2 ML VIAL IVP ONE (05:42)
[2019-02-25] MEDS ORDERED: MIDAZOLAM 2 MG/2 ML VIAL IV PRN (05:42)
[2019-02-25] MEDS ORDERED: fentaNYL (PF) 50 MCG/ML 2 ML AMP IV PRN (05:42)
[2019-02-25] MEDS: LACTATED RINGERS 1,000 ML IV SCH ×3 (06:26→10:35)
[2019-02-25] MEDS ORDERED: fentaNYL (PF) 50 MCG/ML 2 ML AMP ONE (07:25)
[2019-02-25] MEDS ORDERED: SUCCINYLCHOLINE CHLORIDE 100 MG/5 ML SYR IV ONE (07:25)
[2019-02-25] MEDS ORDERED: PROPOFOL 10 MG/ML 20 ML VIAL IV ONE (07:25)
[2019-02-25] MEDS ORDERED: MIDAZOLAM 2 MG/2 ML VIAL ONE (07:25)
[2019-02-25] MEDS ORDERED: LIDOCAINE 1% INJ 10MG/ML (20 ML MDV) ONE (07:25)
--- NOTE | 2019-02-25 08:30 | P.OP ---
Date of Procedure: 02/25/19 Preoperative Diagnosis: 1. Right moderate to severe hallux rigidus 2. Current cigarette smoker 3. Current use of narcotic medication prior to surgery Postoperative Diagnosis: Same Procedure(s) Performed: Right first MTP implant arthroplasty with Cartiva Anesthesia: MAGI Surgeon: David Jhaveri [employer] Passenger Agent #1: Americo Nicholas Estimated Blood Loss (ml): 5 IV fluids (ml): 700 Pathology: none sent Condition: stable Disposition: PACU Indications for Procedure: The patient is a very pleasant 58-year-old male with a medical history significant for cigarette smoking and narcotic dependence taking Percocet prior to surgery presented to my office with a long-standing history of problems with the right first MTP joint. His previously been seen by Dr. Alcantara who sent the patient to me to discuss implant arthroplasty the first MTP joint as he had failed a long course of nonsurgical treatment. I met with the patient and discussed treatment options. We discussed continued nonsurgical treatment versus surgery. I long discussion on different surgical options including cheilectomy, fusion, and implant arthroplasty. We discussed the recent evidence supporting the use of Cartiva. We also discussed the patient's smoking and narcotic dependence. After a long discussion on all the pros and cons the patient requested going forward with implant arthroplasty. Since he failed over 6 months of nonsurgical treatment and is well aware of the potential risks, complications, and limitations of surgery I think it is reasonable to proceed. We discussed the potential risks and complications of surgery including but not limited to risk of anesthesia, infection, wound healing issues, intraoperative fracture, postoperative fracture, stiffness, sensitive scar, implant subsidence, failure of implant, DVT, PE, other medical complications, generalized to satisfaction with surgery, need for further surgery including implant removal and fusion, and possibly loss of life or limb. The patient understands these potential complications. He also understands that full recovery takes one year following this procedure. He was strongly encouraged to quit smoking to enhance his healing. We also discussed pain control following surgery as he is Arty on Percocet. He provided his verbal and written consent to go forward with surgery. Description of Procedure: The patient was identified in preop holding and the correct right foot was marked with my initials. I reviewed the consent form with the patient and all of his questions were answered. The patient was then brought back to the operating room by anesthesia. He was positioned on the OR table where a general anesthetic and preoperative antibiotics were given. A tourniquet was applied to the proximal aspect of the right leg. All bony prominences were padded. The right leg was then prepped and draped in the standard sterile fashion. Prior to starting surgery timeout was performed identifying the correct patient, operative extremity, and procedure. The patient's leg was then elevated, exsanguinated with an Esmarch bandage, and the tourniquet was inflated to 250 mmHg. I began by outlining a straight dorsal incision to the first MTP joint. Skin incision was made with a scalpel. The EHL tendon sheath was incised and the tendon was retracted laterally. A longitudinal capsulotomy was performed in line with the skin incision. Immediately upon entering the joint there was a large amount of clear synovial fluid. There were several loose bodies which were sharply removed. The joint was circumferentially exposed and retractors were placed. On inspection there was full-thickness cartilage loss in the first metatarsal head with large dorsal osteophytes. I carefully contoured the osteophytes on the distal first metatarsal with a rongeur. The size of the first metatarsal head appeared to be large enough to accommodate a 10 mm implant. The sizer was placed centrally on the first metatarsal head and a K wire was driven through the cannulated slot of the sizer. There appeared to be adequate bony coverage. A cannulated reamer was used to create a cavity for the implant. The reamer was brought down 1 mm shy of full so that the implant would sit 2-3 mm proud. The wound was thoroughly irrigated. A 10 mm implant was then press-fit into the cavity. It appeared to have excellent stability. The implant sat approximately 3 mm proud. The wound was then thoroughly irrigated and brought the range of motion. There did not appear to be any impingement. The wound was again irrigated. The capsule was closed with a running 3-0 Monocryl. The deep subcu was reapproximated with Monocryl. The skin was closed with 3-0 nylon horizontal mattress stitches. X-rays were taken. Sterile dressing was applied. The patient was awoken from his anesthetic, transferred to a gurney, and brought to recovery having tolerated the procedure well. Americo Nicholas [facility] was required as a skilled assistant child care teacher throughout the procedure. Plan: The patient can discharge home as an outpatient. He can weight-bear as tolerated in a tall cam boot. He will be given pain medication. I would like him to take an aspirin for DVT prophylaxis. He was instructed on normal splint and wound maintenance. He was strongly encouraged to quit smoking.
[2019-02-25] MEDS: HYDROmorphone 0.5 MG/0.5 ML SYRINGE IVP PRN ×4 (08:34→08:54)
[2019-02-25 08:47] VITALS: TEMP 96.9
[2019-02-25] MEDS ORDERED: KETOROLAC 30 MG/ML 1 ML VIAL IVP ONE (08:49)
[2019-02-25] MEDS ORDERED: diphenhydrAMINE 50 MG/ML 1 ML VIAL IVP ONE (08:50)
[2019-02-25] MEDS: MEPERIDINE 50 MG/ML SYRINGE IVP ONE ×2 (09:01→09:07)
[2019-02-25 09:44] VITALS: RESP 16
--- NOTE | 2019-02-25 10:13 | XR ---
EXAMINATION TYPE: XR foot limited RT, FL guidance operating room DATE OF EXAM: 02/25/2019 CLINICAL HISTORY: Fluoroscopic documentation for right hallux arthroplasty TECHNIQUE: Fluoroscopy. COMPARISON: None. FINDINGS: Fluoroscopic guidance was provided during procedure performed by Dr. Jhaveri. A total of 1 seconds of fluoroscopic time was utilized during the procedure and 2 spot images was acquired duri ng right hallux arthroplasty. IMPRESSION: As Above.
[2019-02-25 10:50] VITALS: BP 113/73; PULSE 74
== END 2019-02-25 10:47 | disposition home or self-care (01) ==
LOC: OR 05:40
PROVIDERS: ATTEND Orthopaedic Surgery
DX: M20.21 Hallux rigidus, right foot (principal); M19.071 Primary osteoarthritis, right ankle and foot; M25.774 Osteophyte, right foot; J43.9 Emphysema, unspecified; E11.9 Type 2 diabetes mellitus without complications; F17.210 Nicotine dependence, cigarettes, uncomplicated; F12.20 Cannabis dependence, uncomplicated; N28.1 Cyst of kidney, acquired; Z79.51 Long term (current) use of inhaled steroids; Z79.84 Long term (current) use of oral hypoglycemic drugs; Z79.891 Long term (current) use of opiate analgesic; Z79.899 Other long term (current) drug therapy; Z97.3 Presence of spectacles and contact lenses; Z88.0 Allergy status to penicillin; Z91.013 Allergy to seafood; Z98.1 Arthrodesis status; Z98.890 Other specified postprocedural states; Z87.09 Personal history of other diseases of the respiratory system; Z83.3 Family history of diabetes mellitus
CPT/HCPCS: 73620; 28291; C1713; J2250; J1200; J1100; J2175; J0690; J2405; J2001; J3010; J1885; J0330; J2704; J1170

== ENCOUNTER → 2019-08-05 | Outpatient (CLI) | payer MEDICARE ==
--- NOTE | 2019-08-05 22:19 | CTL ---
EXAMINATION TYPE: CT Low Dose Lung DATE OF EXAM ORDERED: 08/05/2019 HISTORY: 58-year-old male personal history of tobacco use. Lung cancer screening CT DLP: [address] CTDI: 1.76 mGy Automated exposure control for dose reduction was used. SCREENING VISIT: 1 year 1 month follow-up from baseline COMPARISON: 07/08/2018 TECHNIQUE: Low dose computed tomography scan was performed through the chest. Coronal and sagittal re constructions were performed. Additional coronal MIP reconstruction was generated. CT DIAGNOSTIC QUALITY: Satisfactory FINDINGS: The heart is normal size without pericardial effusion. Aorta normal caliber with conventional arch vessel branching anatomy. No thoracic lymphadenopathy by CT size criteria. Moderate bronchial wall thickening. Biapical pleural parenchymal scarring. Diffuse upper and midlung centrilobular punctate nodularity. Strandy bibasilar atelectasis or scarring with biapical emphysemat ous change. 3 mm peripheral left upper lobe pulmonary nodule, axial image 152. 4 mm peripheral left upper lobe pulmonary nodule, axial image 114. Both of these findings are new from 07/08/2018. Otherwise, no suspicious pulmonary nodule or mass. Visualized upper abdomen shows no gross abnormality. Bones: No osseous destructive process. IMPRESSION: 1. Lung-RADS Category 3 (probably benign, 1-2% chance of malignancy). A new 4 mm and 3 mm peripheral left upper lobe pulmonary nodule. 2. Bronchial wall thickening suggest chronic bronchitis or asthma. Additional punctate centrilobular nodularity upper and mid lungs can be seen with smoking associated respiratory bronchiolitis. 3. Biapical pleural parenchymal scarring and biapical emphysematous change. RECOMMENDATION: 1. Six-month follow-up with low-dose CT chest. In particular to reassess the 4 mm left upper lobe pul monary nodule. 2. Smoking cessation. FOLLOW UP CT CHEST RECOMMENDATION: 6 month follow-up low-dose CT chest. CT LUNG RAD: 3, probably benign
== END | disposition home or self-care (01) ==
LOC: RADCTMAIN 15:45
PROVIDERS: ATTEND Family Medicine
DX: Z12.2 Encounter for screening for malignant neoplasm of respiratory organs (principal); J43.9 Emphysema, unspecified; J94.8 Other specified pleural conditions; R91.8 Other nonspecific abnormal finding of lung field; Z87.891 Personal history of nicotine dependence

== ENCOUNTER → 2020-12-21 | Outpatient (CLI) | payer MEDICARE ==
--- NOTE | 2020-12-21 16:00 | XR ---
EXAMINATION TYPE: XR knee complete bilateral DATE OF EXAM: 12/21/2020 CLINICAL HISTORY: Knee pain, no trauma TECHNIQUE: Three views of the bilateral knee are obtained. COMPARISON: None. FINDINGS: There is no acute fracture/dislocation evident in left knee. There is minimal osteophytosi s of the left patellofemoral compartment with bilateral knee joint effusions. IMPRESSION: There is no acute fracture or dislocation in the left knee. There is minimal osteophytosis of the left patellofemoral compartment with bilateral knee joint effus ions.
== END | disposition home or self-care (01) ==
LOC: RADXRMAIN 15:11
PROVIDERS: ATTEND Nurse Practitioner Family
DX: M25.762 Osteophyte, left knee (principal); M25.462 Effusion, left knee; M25.461 Effusion, right knee

== ENCOUNTER 2021-03-01 16:34 | Emergency (ER) | payer MEDICARE ==
[2021-03-01] MEDS ORDERED: ONDANSETRON 4 MG/2 ML VIAL IVP STA (18:25)
[2021-03-01] MEDS ORDERED: diphenhydrAMINE 50 MG/ML 1 ML VIAL IVP STA (18:25)
[2021-03-01] MEDS ORDERED: MORPHINE SULFATE 4 MG/ML SYRINGE IV STA (18:25)
[2021-03-01] MEDS ORDERED: methylPREDNISolone SOD SUCCI 125 MG/2 ML VIAL IV STA (18:25)
[2021-03-01] MEDS ORDERED: FAMOTIDINE 20 MG/2 ML VIAL IV STA (18:25)
[2021-03-01 18:46] LABS: Basophils # (A) 0.1 k/uL (0-0.2); Basophils % (A) 1 %; Eosinophils % (A) 1 %; HCT 41.3 % (39.0-53.0); HGB 13.6 gm/dL (13.0-17.5); Lymphocytes # (A) 0.5 k/uL (1.0-4.8); Lymphocytes % (A) 7 %; MCH 32.7 pg (25.0-35.0); MCHC 32.9 g/dL (31.0-37.0); MCV 99.4 fL (80.0-100.0); Mean Platelet Volume 6.7; Monocytes # (A) 0.5 k/uL (0-1.0); Monocytes % (A) 6 %; Neutrophils # (A) 6.5 k/uL (1.3-7.7); Neutrophils % (A) 84 %; Platelet Count 252 k/uL (150-450); RBC 4.16 m/uL (4.30-5.90); WBC 7.7 k/uL (3.8-10.6)
[2021-03-01 18:55] LABS: Appearance,Urine Clear (Clear); Bacteria,Urine Rare /hpf; Bilirubin,Urine Negative (Negative); Blood,Urine Small (Negative); Color,Urine Yellow; Glucose,Urine (UA) Negative (Negative); Ketones,Urine 1+ (Negative); Leukocyte Esterase,Urine Negative (Negative); Mucus,Urine Many /hpf; Nitrite,Urine Negative (Negative); PH, Urine 5.5 (5.0-8.0); Protein,Urine Trace (Negative); RBC,Urine 8 /hpf (0-5); Specific Gravity,Urine 1.024 (1.001-1.035); Squamous Epithelial Cell,Urine 1 /hpf (0-4); Urobilinogen,Urine <2.0 mg/dL (<2.0); WBC,Urine 2 /hpf (0-5)
[2021-03-01 18:56] LABS: ALT 14 U/L (4-49); AST 22 U/L (17-59); African American GFR (CKD) >90 (>60 ml/min/1.73 sqM); Albumin 4.2 g/dL (3.5-5.0); Alkaline Phosphatase 78 U/L (38-126); Anion Gap 8 mmol/L; Blood Urea Nitrogen 15 mg/dL (9-20); Calcium 9.2 mg/dL (8.4-10.2); Carbon Dioxide 27 mmol/L (22-30); Chloride 101 mmol/L (98-107); Glucose 115 mg/dL (74-99); Lipase 25 U/L (23-300); Non-African American GFR(CKD) >90 (>60 ml/min/1.73 sqM); Potassium 4.2 mmol/L (3.5-5.1); Sodium 136 mmol/L (137-145); Total Bilirubin 0.3 mg/dL (0.2-1.3); Total Protein 7.1 g/dL (6.3-8.2)
[2021-03-01 19:22] VITALS: RESP 20
--- NOTE | 2021-03-01 21:03 | XR ---
EXAMINATION: XR chest 2V DATE AND TIME: 03/01/2021 7:58 PM CLINICAL INDICATION: PHH; luq pain, hx pneumothorax TECHNIQUE: Departmental protocol COMPARISON: 10/25/2015 FINDINGS: The lungs are clear. Bulla and bleb formation in the lung apices noted. The pleural spaces are negative. The cardiac silhouette is not enlarged. The remainder of the mediastinal silhouette is unremarkable. The skeletal structures and soft tissues are negative for acute findings. IMPRESSION: NO ACUTE PROCESS.
--- NOTE | 2021-03-01 21:20 | CT ---
EXAMINATION TYPE: CT abdomen pelvis w con DATE OF EXAM: 03/01/2021 COMPARISON: HISTORY: LLq pain CT DLP: 603.4 mGycm Automated exposure control for dose reduction was used. TECHNIQUE: Helical acquisition of images was performed from the lung bases through the pelvis. CONTRAST: Performed without Oral Contrast and with IV Contrast, patient injected with 100 mL of Isovu e 300. FINDINGS: LUNG BASES: No significant abnormality is appreciated. LIVER/GB: No significant abnormality is appreciated. PANCREAS: No significant abnormality is seen. SPLEEN: No significant abnormality is seen. ADRENALS: No significant abnormality is seen. KIDNEYS: No significant abnormality is seen. Bilateral parapelvic cysts are noted, in addition to derik ateral simple renal cysts, the largest of which measures approximately 3 cm in the anterior parenchym a of the mid pole right kidney. FREE AIR: No free air is visualized. RETROPERITONEAL ADENOPATHY: None visualized REPRODUCTIVE ORGANS: No significant abnormality is seen URINARY BLADDER: No significant abnormality is seen. PELVIC ADENOPATHY: None visualized. OSSEOUS STRUCTURES: No significant abnormality is seen. BOWEL: No significant abnormality is seen. OTHER: No acute vascular findings. IMPRESSION: NO ACUTE CT PROCESS.
[2021-03-01 21:21] VITALS: BP 105/63; PULSE 59; TEMP 98.1
--- NOTE | 2021-03-01 21:35 | ED ---
Abdominal Pain HPI - General Chief Complaint: Abdominal Pain Stated Complaint: L side pain & shoulder pain Time Seen by Provider: 03/01/21 18:00 Source: patient Mode of arrival: ambulatory Limitations: no limitations - History of Present Illness Initial Comments: 60-year-old male with past history of COPD presents emergency Department with reported left-sided abdominal wall pain. States it's just below his rib cage on the left. Started earlier this morning. Describes it as a sharp shooting pain. Pain is reproducible upon palpation. He did not attempt to take any medications at home for his symptoms. He denies any chest pain or shortness of breath. No changes in his bowel or bladder habits. No fevers. No previous abdominal surgeries. Denies any nausea or vomiting. No other alleviating, precipitating or modifying factors - Related Data Home Medications Medication Instructions Recorded Confirmed oxyCODONE HCL/ACETAMINOPHEN 1 tab PO Q6HR PRN 09/24/15 02/25/19 [Percocet 10-325 mg] Albuterol Inhaler (Mhu) [Ventolin 1 - 2 puff INHALATION RT-Q6H PRN 10/30/18 02/25/19 Hfa Inhaler (Mhu)] Budesonide-Formot 160-4.5 Mcg 2 puff INHALATION RT-BID 10/30/18 02/25/19 [Symbicort 160-4.5 Mcg Inhaler] Previous Rx's Medication Instructions Recorded Aspirin 325 mg PO DAILY #14 tab 02/25/19 Allergies Allergy/AdvReac Type Severity Reaction Status Date / Time Penicillins Allergy Rash/Hives Verified 03/01/21 17:00 shellfish derived [Shellfish] Allergy Anaphylaxis Verified 03/01/21 17:00 Review of Systems ROS Statement: Those systems with pertinent positive or pertinent negative responses have been documented in the HPI. ROS Other: All systems not noted in ROS Statement are negative. Past Medical History Past Medical History: COPD Additional Past Medical History / Comment(s): Pneumothorax, Emphesema History of Any Multi-Drug Resistant Organisms: None Reported Past Surgical History: Back Surgery, Orthopedic Surgery Additional Past Surgical History / Comment(s): Neck surg Past Anesthesia/Blood Transfusion Reactions: No Reported Reaction Past Psychological History: No Psychological Hx Reported Smoking Status: Never smoker Past Alcohol Use History: None Reported Past Drug Use History: Marijuana - Past Family History Mother Family Medical History: Myocardial Infarction ([place]) Additional Family Medical History / Comment(s): at 42. Father Family Medical History: Cancer, Myocardial Infarction ([place]) Additional Family Medical History / Comment(s): at 67, Prostate cancer. General Exam Limitations: no limitations Course Vital Signs 03/01/21 03/01/21 03/01/21 17:01 18:40 21:10 Temperature 99.6 F 98.1 F Pulse Rate 88 84 59 L Respiratory 16 20 20 Rate Blood Pressure 142/75 136/86 105/63 O2 Sat by Pulse 97 97 93 L Oximetry Medical Decision Making - Medical Decision Making Clinical patient is placed into room 29. Thorough history and physical exam was performed. Patient's pain is reproducible upon palpation of the left upper quadrant of his abdomen. Laboratory studies are conducted. Patient appeared stable. Does demonstrate small blood with 8 red blood cells in his urine. Chest x-rays performed because of the patient's previous history with referral pain to his left shoulder. Demonstrates no acute process. CT the patient's abdomen and pelvis demonstrates bilateral renal cysts without acute CT process. Results discussed the patient. He states his pain is resolved at this time. He does have oxycodone at home to take for pain. Patient will be discharged home. Given follow-up information for the urologist because of the blood in his urine. I asked return to the emergency room for any new or worsening symptoms. Patient agreed the treatment plan is discharged home in stable condition - Lab Data Result diagrams: 03/01/21 18:35 03/01/21 18:35 Lab Results 03/01/21 03/01/21 03/01/21 Range/Units 18:35 18:35 18:35 WBC 7.7 (3.8-10.6) k/uL RBC 4.16 L (4.30-5.90) m/uL Hgb 13.6 (13.0-17.5) gm/dL Hct 41.3 (39.0-53.0) % MCV 99.4 (80.0-100.0) fL MCH 32.7 (25.0-35.0) pg MCHC 32.9 (31.0-37.0) g/dL RDW 13.0 (11.5-15.5) % Plt Count 252 (150-450) k/uL MPV 6.7 Neutrophils % 84 % Lymphocytes % 7 % Monocytes % 6 % Eosinophils % 1 % Basophils % 1 % Neutrophils # 6.5 (1.3-7.7) k/uL Lymphocytes # 0.5 L (1.0-4.8) k/uL Monocytes # 0.5 (0-1.0) k/uL Eosinophils # 0.0 (0-0.7) k/uL Basophils # 0.1 (0-0.2) k/uL Sodium 136 L (137-145) mmol/L Potassium 4.2 (3.5-5.1) mmol/L Chloride 101 (98-107) mmol/L Carbon Dioxide 27 (22-30) mmol/L Anion Gap 8 mmol/L BUN 15 (9-20) mg/dL Creatinine 0.82 (0.66-1.25) mg/dL Est GFR (CKD-EPI)AfAm >90 (>60 ml/min/1.73 sqM) Est GFR (CKD-EPI)NonAf >90 (>60 ml/min/1.73 sqM) Glucose 115 H (74-99) mg/dL Calcium 9.2 (8.4-10.2) mg/dL Total Bilirubin 0.3 (0.2-1.3) mg/dL AST 22 (17-59) U/L ALT 14 (4-49) U/L Alkaline Phosphatase 78 (38-126) U/L Total Protein 7.1 (6.3-8.2) g/dL Albumin 4.2 (3.5-5.0) g/dL Lipase 25 (23-300) U/L Urine Color Yellow Urine Appearance Clear (Clear) Urine pH 5.5 (5.0-8.0) Ur Specific [place] 1.024 (1.001-1.035) Urine Protein Trace H (Negative) Urine Glucose (UA) Negative (Negative) Urine Ketones 1+ H (Negative) Urine Blood Small H (Negative) Urine Nitrite Negative (Negative) Urine Bilirubin Negative (Negative) Urine Urobilinogen <2.0 (<2.0) mg/dL Ur Leukocyte Esterase Negative (Negative) Urine RBC 8 H (0-5) /hpf Urine WBC 2 (0-5) /hpf Ur Squamous Epith Cells 1 (0-4) /hpf Urine Bacteria Rare H (None) /hpf Urine Mucus Many H (None) /hpf - EKG Data EKG Comments: EKG demonstrates normal sinus rhythm with a ventricular rate of 76. KS interval 162. QRS 84. QTC of 393. No acute ST segment elevations or depressions Disposition Clinical Impression: Left sided abdominal pain Disposition: HOME SELF-CARE Condition: Stable Instructions (If sedation given, give patient instructions): Abdominal Pain (ED) Additional Instructions: Take your prescribed pain meds at home. Follow up with your doctor in 2-4 days. I recommend you see the urologist for the blood in your urine. Return to the ED for any new or worsening symptoms Is patient prescribed a controlled substance at d/c from ED?: No Referrals: Elías Chavez DO [Primary Care Provider] - 1-2 days Adarsh Vivas MD [STAFF PHYSICIAN] - 1-2 days Time of Disposition: 21:35
== END 2021-03-01 21:48 | disposition home or self-care (01) ==
LOC: EC 16:34
DX: R10.12 Left upper quadrant pain (principal); Z79.82 Long term (current) use of aspirin; Z88.0 Allergy status to penicillin; J44.9 Chronic obstructive pulmonary disease, unspecified; F12.90 Cannabis use, unspecified, uncomplicated
CPT/HCPCS: 99284 ×2; 96374 ×2; 96375 ×5; 36415; 93005; 80053; 83690; 85025; 81001; 71046; 74177; J2270; J1200; J2930; J2405; Q9967

== ENCOUNTER 2022-04-22 10:40 | Emergency (ER) | payer MEDICARE ==
[2022-04-22 10:50] VITALS: BP 148/85; PULSE 70; RESP 20; TEMP 98.6
--- NOTE | 2022-04-22 13:00 | ED ---
Back Pain HPI - General Chief Complaint: Back Pain/Injury Stated Complaint: Back pain Time Seen by Provider: 04/22/22 12:46 Source: patient, RN notes reviewed Limitations: no limitations - History of Present Illness Initial Comments: Patient is a 61 year old male presenting to the ER with a chief complaint of back pain. Patient was playing with his dogs, Friday (04/17/22), when he slipped landing on his left hip/lower back. Denies LOC. Patient states he was waiting it out thinking his pain would improve but it has not. He endorses associated radiating pain down his left leg into his foot. This occurs even while laying still and is exacerbated while moving. Denies numbness or tingling in extremity. Patient has a history of lumbar back surgery years ago. He routinely takes Percocet 10mg for pain and the current pain is exceeding the strength of his current medication. Denies any bowel, bladder incontinence or retention of saddle anesthesias - Related Data Home Medications Medication Instructions Recorded Confirmed oxyCODONE HCL/ACETAMINOPHEN 1 tab PO Q6HR PRN 09/24/15 02/25/19 [Percocet 10-325 mg] Albuterol Inhaler [Ventolin Hfa 1 - 2 puff INHALATION RT-Q6H PRN 10/30/18 02/25/19 Inhaler] Budesonide-Formot 160-4.5 Mcg 2 puff INHALATION RT-BID 10/30/18 02/25/19 [Symbicort 160-4.5 Mcg Inhaler] Previous Rx's Medication Instructions Recorded Aspirin 325 mg PO DAILY #14 tab 02/25/19 Cyclobenzaprine [Flexeril] 10 mg PO TID PRN #15 tab 04/22/22 Allergies Allergy/AdvReac Type Severity Reaction Status Date / Time Penicillins Allergy Rash/Hives Verified 04/22/22 10:50 shellfish derived [Shellfish] Allergy Anaphylaxis Verified 04/22/22 10:50 Review of Systems ROS Statement: Those systems with pertinent positive or pertinent negative responses have been documented in the HPI. ROS Other: All systems not noted in ROS Statement are negative. Past Medical History Past Medical History: COPD Additional Past Medical History / Comment(s): Pneumothorax, Emphesema History of Any Multi-Drug Resistant Organisms: None Reported Past Surgical History: Back Surgery, Orthopedic Surgery Additional Past Surgical History / Comment(s): Neck surg Past Anesthesia/Blood Transfusion Reactions: No Reported Reaction Past Psychological History: No Psychological Hx Reported Smoking Status: Never smoker Past Alcohol Use History: None Reported Past Drug Use History: Marijuana - Past Family History Mother Family Medical History: Myocardial Infarction ([place]) Additional Family Medical History / Comment(s): at 42. Father Family Medical History: Cancer, Myocardial Infarction ([place]) Additional Family Medical History / Comment(s): at 67, Prostate cancer. General Exam Limitations: no limitations General appearance: alert, in no apparent distress Head exam: Present: atraumatic, normocephalic, normal inspection Eye exam: Present: normal appearance, PERRL, EOMI. Absent: scleral icterus, conjunctival injection, periorbital swelling ENT exam: Present: normal exam, mucous membranes moist Neck exam: Present: normal inspection. Absent: tenderness, meningismus, lymphadenopathy Respiratory exam: Present: normal lung sounds bilaterally. Absent: respiratory distress, wheezes, rales, rhonchi, stridor Cardiovascular Exam: Present: regular rate, normal rhythm, normal heart sounds. Absent: systolic murmur, diastolic murmur, rubs, gallop, clicks GI/Abdominal exam: Present: soft, normal bowel sounds. Absent: distended, tenderness, guarding, rebound, rigid Extremities exam: Present: normal inspection, full ROM, other (2+ posterior tibilas pulse ) Back exam: Present: tenderness, paraspinal tenderness, vertebral tenderness, other (left sided edema) Neurological exam: Present: alert, oriented X3, CN II-XII intact Psychiatric exam: Present: normal affect, normal mood Skin exam: Present: warm, dry, intact, normal color. Absent: rash Course Vital Signs 04/22/22 10:48 Temperature 98.6 F Pulse Rate 70 Respiratory 20 Rate Blood Pressure 148/85 O2 Sat by Pulse 96 Oximetry Medical Decision Making - Medical Decision Making X-rays do not show any acute fracture. Patient is stable hardware she has no red flag symptoms. Patient discharged in stable condition is currently on a pain contract. Disposition Clinical Impression: Lumbar back pain Disposition: HOME SELF-CARE Condition: Stable Instructions (If sedation given, give patient instructions): Acute Low Back Pain (ED) Additional Instructions: Please return to the Emergency Department if symptoms worsen or any other concerns. Prescriptions: Cyclobenzaprine [Flexeril] 10 mg PO TID PRN #15 tab PRN Reason: Muscle Spasm Is patient prescribed a controlled substance at d/c from ED?: No Referrals: Elías Chavez DO [STAFF PHYSICIAN] - 1-2 days Time of Disposition: 13:47
[2022-04-22] MEDS ORDERED: HYDROmorphone 1 MG/ML 1 ML SYRINGE IM STA (13:03)
--- NOTE | 2022-04-22 13:33 | XR ---
EXAMINATION TYPE: XR lumbosacral spine min 4V DATE OF EXAM: 04/22/2022 CLINICAL HISTORY: pain COMPARISON: NONE TECHNIQUE: Frontal, lateral, and oblique images of the lumbar spine are obtained. FINDINGS: There are 5 lumbar type vertebral bodies identified. The lumbar spine shows satisfactory alignment without evidence of acute fracture or dislocation. Postoperative changes of fusion at L5-S1 with pedicular screws in place. Vertebral body heights are within normal limits. Disc spaces are wel l preserved. The overlying soft tissue appears unremarkable. IMPRESSION: No acute fracture or dislocation is seen in the lumbar spine. Degenerative narrowing L4- 5 and L5-S1. Mild curvature convex to the right.
== END 2022-04-22 13:52 | disposition home or self-care (01) ==
LOC: EC 10:40
DX: M54.50 Low back pain, unspecified (principal); J44.9 Chronic obstructive pulmonary disease, unspecified; F12.90 Cannabis use, unspecified, uncomplicated; Z88.0 Allergy status to penicillin; Z91.013 Allergy to seafood
CPT/HCPCS: 72110; 99283; 96372; J1170

== ENCOUNTER → 2022-05-31 | Outpatient (CLI) | payer MEDICARE ==
--- NOTE | 2022-05-31 08:06 | US ---
EXAMINATION TYPE: US duplex aorta DATE OF EXAM: 05/31/2022 COMPARISON: Ultrasound aorta 02/12/2019, CT abdomen pelvis 03/01/2021. CLINICAL HISTORY: Z13.6 ENCOUNTER FOR SCREENING FOR CARDIOVASCULAR. Screening TECHNIQUE: Multiple sonographic images of the abdominal aorta are obtained. FINDINGS: EXAM MEASUREMENTS: Abdominal Aorta: Proximal: 2.4 x 2.1cm Mid: 2.1 x 1.9cm Distal: 1.7 x 1.5cm Bifurcation: RT: 1.1 x 1.0cm LT: 1.1 x 0.9cm GUN NUMBERER NOTES: No evidence of AAA. Calcifications noted IMPRESSION: No abdominal aortic aneurysm.
== END | disposition home or self-care (01) ==
LOC: RADUSWWP 07:24
PROVIDERS: ATTEND Family Medicine
DX: Z13.6 Encounter for screening for cardiovascular disorders (principal)
CPT/HCPCS: 93979

== ENCOUNTER → 2022-09-27 | Outpatient (CLI) | payer MEDICARE ==
--- NOTE | 2022-09-27 08:04 | XR ---
EXAMINATION TYPE: XR lumbar spine 2 or 3V DATE OF EXAM: 09/27/2022 CLINICAL HISTORY: Low back pain TECHNIQUE: Frontal and lateral images of the lumbar spine are obtained. COMPARISON: Prior lumbar spine x-ray April 22, 2022 FINDINGS: There are 5 lumbar type vertebral bodies redemonstrated. And bilateral Posterior intra-art icular rods and screws L5-S1 level are redemonstrated. Stable slight grade 1 anterolisthesis L5 on S1 . Moderate to severe disc space narrowing at this level is slightly more prominent from prior. Verteb ral body heights and disc space height above this level are stable and satisfactory. Mild to moderate overlying arterial vascular calcification is redemonstrated IMPRESSION: As above.
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
== END | disposition home or self-care (01) ==
LOC: RADXRMAIN 07:23
PROVIDERS: ATTEND Family Medicine
DX: M16.12 Unilateral primary osteoarthritis, left hip (principal); M43.16 Spondylolisthesis, lumbar region; M51.36 Other intervertebral disc degeneration, lumbar region
CPT/HCPCS: 72100; 73502

== ENCOUNTER → 2022-12-11 | Outpatient (CLI) | payer MEDICARE ==
--- NOTE | 2022-12-11 12:36 | MR ---
EXAMINATION TYPE: MR lumbar spine wo con DATE OF EXAM: 12/11/2022 11:56 AM COMPARISON: 09/19/2022, CT 03/01/2021. CLINICAL INDICATION: Male, 62 years old with history of M43.16,M54.16; Lower back pain, BLE radiculop athy. Hx surgery. TECHNIQUE: Multi planar, multi sequence imaging was performed utilizing: T1-weighted, T2-weighted, a nd turbo inversion recovery imaging of the lumbar spine. IV Contrast: None. FINDINGS: Alignment: The lumbar vertebral bodies have preserved heights and alignment. Cord: The conus medullaris and the distal spinal cord appear unremarkable with regards to their signa l intensity and morphology. Bones/Discs: Postsurgical changes at L5-S1. No abnormal bony edema on inversion recovery sequences. C ouple perineural cysts are noted posterior to S1/S2 levels. T12-L1: No evidence of significant spinal canal stenosis or neural foraminal stenosis. L1-L2: No evidence of significant spinal canal stenosis or neural foraminal stenosis. L2-L3: There is a right central and right disc extrusion with 19 mm inferior migration. This closely approximates the forming nerves in the spinal canal . The spinal canal is mildly narrowed. There is m oderate bilateral neural foraminal stenosis. L3-L4: No evidence of significant spinal canal stenosis or neural foraminal stenosis. L4-L5: No evidence of significant spinal canal stenosis or neural foraminal stenosis. L5-S1: Postsurgical change with facet joint arthropathy there is moderate bilateral neural foraminal stenosis. The spinal canal is patent. No significant spinal canal or neural foraminal stenosis in the remainder of the visualized levels. Other findings: Bilateral high T2 signal renal cysts are present. IMPRESSION: L2-L3 disc extrusion with inferior migration of disc material. Disc Material closely approximates ner ve roots in the spinal canal on the right. The spinal canal is grossly patent however. Additional sca ttered neural foraminal stenosis with moderate at L2-L3 and moderate at L5-S1 bilaterally.
== END | disposition home or self-care (01) ==
LOC: RADMRIMAIN 11:00
PROVIDERS: ATTEND Orthopaedic Surgery
DX: M48.061 Spinal stenosis, lumbar region without neurogenic claudication (principal); M51.16 Intervertebral disc disorders with radiculopathy, lumbar region; M43.16 Spondylolisthesis, lumbar region
CPT/HCPCS: 72148

== ENCOUNTER → 2023-01-24 | Outpatient (CLI) | payer MEDICARE ==
--- NOTE | 2023-01-26 13:32 | CT ---
EXAMINATION TYPE: CT lumbar spine wo con DATE OF EXAM: 01/24/2023 COMPARISON: MRI 12/11/2022 HISTORY: 62-year-old male M54.9, back pain TECHNIQUE: Contiguous axial scanning of the lumbar spine without IV contrast. Coronal and sagittal re constructions performed. CT DLP: 372.2 mGycm Automated exposure control for dose reduction was used. FINDINGS: 2.2 cm parapelvic cyst left kidney. Previous L5-S1 posterior lumbar fusion with fixed grade 1 anterolisthesis. There is mature bony fusio n involving the left-sided posterior elements and a right-sided foraminotomy. Mild multilevel degenerative disc disease with bulging discs. Disc bulges impress on the ventral thec al sac at multiple levels. This results in mild spinal canal narrowing at L2-L3. Somewhat right parac entral protrusion here may abut the traversing right L3 nerve root. Ventral impression on the thecal sac at additional levels without significant spinal canal stenosis. Facet arthropathy mid to lower lumbar spine. On the left, changes result in moderate neural foraminal stenosis at L5-S1 and mild at L2-L3, L3-L4, and L4-L5. On the right, changes associated moderate neural foraminal stenosis at L5-S1 and mild at L2-L3, L3-4, and L4-L5. IMPRESSION: 1. MILD MULTILEVEL DEGENERATIVE DISC DISEASE. THIS RESULTS IN MILD SPINAL CANAL NARROWING AT L2-L3. T HERE IS AN ECCENTRIC RIGHT PARACENTRAL EXTRUSION HERE WELL WITH INFERIOR MIGRATION OF DISC MATERIA L (BETTER SEEN ON THE 12/11/2022 MRI) THAT MAY ABUT THE TRAVERSING RIGHT L3 NERVE ROOT AT THIS LEVEL. 2. PREVIOUS L5-S1 POSTERIOR FUSION WITH FIXED GRADE 1 ANTEROLISTHESIS. MODERATE BILATERAL NEUROFORAMI NAL STENOSIS AT THIS LEVEL. 3. ADDITIONAL VARIABLE MILD NEUROFORAMINAL NARROWING FROM L2 THROUGH L5 LEVELS.
== END | disposition home or self-care (01) ==
LOC: RADCTMAIN 06:47
PROVIDERS: ATTEND Orthopaedic Surgery
DX: M51.36 Other intervertebral disc degeneration, lumbar region (principal); M48.061 Spinal stenosis, lumbar region without neurogenic claudication; M51.26 Other intervertebral disc displacement, lumbar region; M99.73 Connective tissue and disc stenosis of intervertebral foramina of lumbar region; M43.16 Spondylolisthesis, lumbar region; Z98.1 Arthrodesis status
CPT/HCPCS: 72131

== ENCOUNTER → 2023-03-12 | Outpatient (CLI) | payer MEDICARE | END | disposition home or self-care (01) | LOC: LABPAT 08:07 | PROVIDERS: ATTEND Orthopaedic Surgery | DX: Z01.812 Encounter for preprocedural laboratory examination (principal); Z22.322 Carrier or suspected carrier of Methicillin resistant Staphylococcus aureus; M50.23 Other cervical disc displacement, cervicothoracic region | CPT/HCPCS: 36415; 86850; 86900; 86901; 87070 ==

== ENCOUNTER 2023-03-18 07:59 | Observation (INO) | payer MEDICARE ==
[2023-03-11 12:15] VITALS: BMI 21.5
--- NOTE | 2023-03-17 17:00 | P.HPOR ---
History of Present Illness H&P Date: 03/12/23 .D:Date: 03/12/23 : 04:16pm .T:Title: *[facility] Date of :62 [id number]: NKDA Age: 62 year Height: 5'10" Weight: 150 lbs BMI: 21.52 kg/m2 Occupation:Disability VAS: 6 CHIEF COMPLAINT: Re-check on low back pain DOI: Chronic DOS: h/o L5-S1 decompression and fusion performed in [place] Duration of current treatment regiment:N/A HISTORY: Xrays No new xrays taken in office Trauma or injury No Work-Related No Pain description aching, sharp. Location posterior Patient notes that their pain radiates to bilateral lower extremities Activity Modification Yes Hand Dominance right TREATMENTS COMPLETED: 6 weeks of PT completed? Month and Year of last PT date? Yes Years ago, exacerbated symptoms Did it help? No Physician directed home exercise completed? Yes, without relief Medications Yes List: Percocet and Gabapentin Alternative interventions Chiropractic: No Massage therapy: No R.I.C.E: yes Brace: Yes How long was brace worn? n/a Did it help? yes Injections No RFA: No SUBJECTIVE: Today pt presents for pre op appt for open L2-3 decompression and fusion. He continues to have severe pain in regards to this area.he continues to have radiculopathy down both of his legs. Continues to have low back pain in general. Denies a fevers chills shortness breath or chest pain. States that conservative measures have not worked for him and he is ready for surgical intervention. He denies any other issues no new numbness or tingling at this time continued lower extremity radiculopathy low back pain and paresthesias. Denies any bowel or bladder issues at this time. HPI: Mr. Causey returns today for a re-check on his low back pain. The patient reports experiencing a continued ache-like pain throughout the low back that radiates down into the bilateral lower extremities. He notes his leg pain is associated with numbness, tingling, and mild weakness. The patient reports experiencing continued groin pain upon the left side. 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 The patient reports experiencing severe sleep disturbances related to his ongoing pain and associated symptoms. The patient states that his symptoms have started to become intractable. The patient has history of an L5-S1 decompression and fusion completed approximately 15 years ago in [place]. He notes this surgery initially provided him with mild relief, though his pain has been worsening over the last 13 to 14 years, becoming most severe over the last 1 to 2 years. The patient has trialed conservative treatment in the form of physical therapy, at home stretches/exercises, at home heat/ice therapies, activity modification, wearing a low back brace, and medication management, all with no significant or sustained relief. The patient is currently taking Gabapentin and Percocet with very minimal relief of pain. Otherwise the patient denies any f/c/sob/cp, no bladder or bowel retention/incontinence, no perineal numbness/tingling, and ambulates independently. Mr. Causey returns to the office for recheck on 12/16/2022 of his low back pain and MRI results. Since last office visit patient has completed HEP without relief. Patient reports no changes in his symptoms. Patient continues to report a constant aching, grinding, and sharp stabbing lumbar pain. Patient reports that it does radiate into the left groin and bilateral lower extremities, associated with tingling. For his symptoms the patient continues with Percocet, diclofenac, and gabapentin. MRI report has been reviewed and discussed. Patient feels he has exhausted all conservative measures at this time and would like to consult with Dr. Triplett. Otherwise the patient denies any f/c/sob/cp, no bladder or bowel retention/incontinence, no perineal numbness/tingling, and ambulates independently. Mr. Causey was last seen on 12/04/22 regarding an evaluation of their low back pain. Patient reports a constant aching, grinding, and sharp stabbing lumbar pain ongoing for 15 years with an onset of 2007 after patient had a L5-S1 decompression and fusion performed in [place]. Patient states he had minimal relief of his symptoms after the procedure. In addition to their lumbar pain, they do report that it radiates into the left groin and bilateral lower extremities, associated with and tingling. Overall the patient has seen a progressive increase in symptoms since their onset. Mr. Causey symptoms are exacerbated with any increased or prolonged activity, due to this they notes that it is increasingly difficult for him to complete many daily tasks. Patient is having moderate sleep disturbances as well due to their ongoing pain and associated symptoms. Regarding treatments, the patient has previously trialed the above listed modalities. Patient has also trialed a TENS unit and pain management wit h oral medication with Dr. Sy. For their symptoms, the patient has been taking Percocet and Diclofenac . Otherwise the patient denies any f/c/sob/cp, no bladder or bowel retention/incontinence, no perineal numbness/tingling, and ambulates independently. The patients' past social, medical, family, surgical history, as well as review of systems, have been reviewed. Please refer to the Neurosurgery History and Physical form that has been scanned in to our electronic medical record system. 14 points review of systems completed and as stated in HPI, all other systems reviewed are negative. Social History: Reviewed, see appropriate section of the chart for details. P3 Family History: Reviewed, see appropriate section of the chart for details. P2 Past Medical History: Reviewed, see appropriate section of the chart for details. [id number] Medications: Rx: albuterol sulfate HFA 90 mcg/actuation aerosol inhaler Ref: 0 Rx: Anoro Ellipta 62.5 mcg-25 mcg/actuation powder for inhalation Ref: 0 Rx: diclofenac sodium 50 mg tablet,delayed release Ref: 0 Rx: gabapentin 300 mg capsule Ref: 0 Rx: Percocet 10 mg-325 mg tablet Ref: 0 Rx: tamsulosin 0.4 mg capsule Ref: 0 PHYSICAL EXAMINATION: General: Awake, alert, appropriate for age, in no acute distress. HEENT: No unusual neck masses around region of lateral neck triangle, thyroid, supraclavicular groove Heart: Regular rate and rhythm, normal S1, S2 and no murmur/gallop. Lungs: Clear to auscultation bilaterally with no use of accessory muscles. Extremities: Skin warm and dry without acute lesions, coloration, temperature, skin intact, no tenderness or erythema Integument: Hairy patches: ABSENT Dorsal skin dimples: ABSENT Cafe au lait spots: ABSENT Surgical incisions: well healed lumbar Palpation: Please see Pain drawing on Intake sheet for further detail. Midline spinal tenderness: No E6 Cervical Tenderness: No E6 Paralumbar tenderness: YES E6 Parathoracic tenderness: No E6 Buttocks tenderness: No E6 Sacroiliac Tenderness: No POSTURAL and MUSCULO-SKELETAL EVALUATION: Coronal Balance: NEUTRAL Recumbent testing: Patient is able to lay flat on back Sagittal Balance: NEUTRAL Shoulder Profile: LEVEL Pelvic Girdle: LEVEL Neck ROM: UNRESTRICTED Lumbar ROM: RESTRICTED Shoulder ROM: Symmetrical Hip ROM: Symmetrical Knee ROM: Symmetrical Hands: Normal appearance, symmetrical Feet: Normal appearance, Symmetrical VASCULAR STATUS : LEFT RIGHT Wrist Pulses INTACT INTACT Pedal Pulses (Dors. pedis & post.tibialis) INTACT INTACT Color NORMAL NORMAL Edema Absent Absent NEUROLOGIC EXAMINATION: Mental Status:Awake and alert, fully oriented, with normal attention, concentration and memory, and fluent, appropriate speech. Cranial Nerves: I: Olfactory not tested. II: Visual acuity normal, no visual field deficit noted with confrontation. III,IV: Normal pupillary reflexes & intact extraocular movements without nystagmus. V,: Intact symmetrical facial sensation. VII: Intact symmetrical facial motor movement VIII: Hearing intact. IX,X: Intact gag, swallow, & normal voice. XI: Sternocleidomastoid, trapezius function intact. XII: Tongue midline with normal movements. L'hermitte's Sign: Negative / absent Spurling'Sign: Absent bilaterally. Cubital percussion test: Absent bilaterally. Pagan-Tinel sign - Carpal region: Absent bilaterally. Straight Leg Raising: Absent bilaterally. Crossed straight leg raise: negative O8 MOTOR EXAM (0-5/5, N/T) Muscle appearance: Symmetrical, without signs of atrophy or dystrophy UPPER EXTREMITY RIGHT LEFT Shoulder Abduction 5/5 5/5 Biceps 5/5 5/5 Triceps 5/5 5/5 Wrist Extension 5/5 5/5 Hand Intrinsic 5/5 5/5 Paper Grader 5/5 5/5 Hand and finger dexterity intact bilaterally? yes Disdiadochokinesis examination negative bilaterally? yes LOWER EXTREMITY RIGHT LEFT Hip Flexion 4+ 5/5 Knee Extension 4+ 5/5 Knee Flexion 4+ 5/5 Dorsiflexion 5/5 5/5 Plantarflexion 5/5 5/5 EHL 5/5 5/5 FHL 5/5 5/5 Toe heel walk / heel-toe walk intact while maintaining satisfactory balance?No Single leg stance:intact Trendelenburg sign negative bilaterally REFLEXES(0-4/2, NT)Upper ExtremityLower Extremity Right 2 2 Left 2 2 Pathological Reflexes RIGHT LEFT Pagan's Absent Absent Clonus Absent Absent Babinski Absent Absent Sensory system (0-4, N/T) Test type RU CHRISTY RL LL Joint-Position 2 2 2 2 Vibration 2 2 2 2 Pain & LT sense 2 2 2 2 Dermatomal Deficit: None None L2-3 None Gait and Functional Evaluation: Ambulatory aids: Independent Romberg's test:Intact bilaterally Steady Gait RADIOGRAPHIC STUDIES: No new x-rays completed in office today. MRI of the lumbar spine without contrast completed on 12/11/2022 at [facility]: Images reviewed with pt. These demonstrate a large L2-3 HNP eccentric to the left causing left foraminal, central and lateral recess stenosis that is moderate to severe in nature. There is displacement of the thecal sac posterior and to the right due to the herniation size. This is a disc osteophyte complex and is ridgid in nature. There is spondylosis of this level with facet arthrosis as well that is moderate. There is height collapse and mild segmental kyphosis due to the collapse. No fracture noted. No lesions. The remainder of the lumbar spine visualized shows mild to moderate spondylotic changes with varying degress of central and foraminal stenosis due to disc bulges and spondylotic changes. computed tomography scan of the lumbar spine 01/24/2023 done at [facility]: images reviewed demonstrate disc osteophyte complex L2-L3 with moderate to severe central and bilateral foraminal stenosis. There is spondylosis noted with facet arthropathy. Multilevel degenerative changes noted. Postsurgical changes L5-S1 noted from previous fusion construct. No other fractures or dislocations otherwise noted. IMPRESSION: It was my pleasure to have seen and examined Dexter. I reviewed the patient's clinical syndrome, physical findings, and imaging studies during the appointment today. It is my impression that the patient has a diagnosis of. 1. L2-3 herniated nucleus pulposus and disc osteophyte, large 2. Right lower extremity radiculopathy 3. Right lower extremity weakness 4. Low back pain 5. L5-S1 pseudoarthrosis I outlined the natural course history without intervention and various interventional options. PLAN: Based on my findings I suggest the following course of action: -I discussed treatment options with the patient, including operative and non- operative options. Due to the nature of this herniation, how large it is and the need for complete decompression at this level I have made the following recommendation and they have elected to proceed with the following surgical procedure: L2-3 open posterior lumbar interbody fusion The indications, risks, benefits, and alternatives to surgery were discussed with the patient and family at length. Specifically (but not limited to) the risks of infection, stiffness, recurrence of symptoms, need for revision surgery, local numbness, neurovascular injury, and blood clots were discussed. The patient's questions were answered. The decision to proceed was made. Consent will be obtained for the procedure. - I have ordered a CT scan of the lumbar spine to be completed prior to surgery. - Ambulate daily - Take medications as directed - Ice and rest for pain and swelling control. Spine Surgery Risk Review Mr. Causey is presenting for evaluation of low back and right lower extremity pain, right lower extremity numbness, tingling, and weakness. It was my pleasure to have seen and examined Mr. Causey. In our visit today we have had a chance to go over subjective complaints, physical examination findings and treatments including the natural course history without intervention and various interventional options. The patients imaging demonstrates: XRay Lumbar Multiview (AP, Lateral, Flexion, Extension) with AP pelvis; 5 views taken at [facility] on 12/04/22: - Re-reviewed with the patient today Mild to moderate multilevel spondylitic and degenerative changes with preserved alignment. There is hardware present from previous surgery L5-S1 rods and screws. Hardware is intact with no migration. Grade 1 anterolisthesis L5 on S1. Multilevel diminished disc height. Vertebral body heights are preserved. No acute osseous abnormalities. Pelvis: The visualized sacrum and iliac wings are within normal limits. MRI of the lumbar spine without contrast completed on 12/11/2022 at [facility]: Images reviewed with pt. These demonstrate a large L2-3 HNP eccentric to the left causing left foraminal, central and lateral recess stenosis that is moderate to severe in nature. There is displacement of the thecal sac posterior and to the right due to the herniation size. This is a disc osteophyte complex and is ridgid in nature. There is spondylosis of this level with facet arthrosis as well that is moderate. There is height collapse and mild segmental kyphosis due to the collapse. No fracture noted. No lesions. The remainder of the lumbar spine visualized shows mild to moderate spondylotic changes with varying degress of central and foraminal stenosis due to disc bulges and spondylotic changes. computed tomography scan of the lumbar spine 01/24/2023 done at [facility]: images reviewed demonstrate disc osteophyte complex L2-L3 with moderate to severe central and bilateral foraminal stenosis. There is spondylosis noted with facet arthropathy. Multilevel degenerative changes noted. Postsurgical changes L5-S1 noted from previous fusion construct. No other fractures or dislocations otherwise noted. On physical exam, Mr. Causey demonstrates: a continued ache-like pain throughout the low back that radiates down into the right lower extremity. He notes his leg pain is associated with numbness, tingling, and weakness. The patient reports experiencing continued groin pain upon the right side. 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 The patient reports experiencing severe sleep disturbances related to his ongoing pain and associated symptoms. The patient states that his symptoms have started to become intractable. The patient has history of an L5-S1 decompression and fusion completed approximately 15 years ago in [place]. He notes this surgery initially provided him with mild relief, though his pain has been worsening over the last 13 to 14 years, becoming most severe over the last 1 to 2 years. I have explained to the patient that as their condition progresses it will cause further neurological deficits and eventual paralysis. Based on the patients imaging, physical exam, and the rapid progression and disabling nature of their symptoms, at this time I recommend surgery in the form of a: L2-3 open posterior lumbar interbody fusion. I discussed the risk and benefits of this procedure at length with Mr. Causey. The patient agreed to considered pursuing the procedure abovementioned. Prior to surgery, she should follow up with her PCP (Cardio, ID, IM etc) for clearance. Questions were invited and answered, and the patient wishes to proceed as outlined below. Currently, I am recommendin.L2-3 open posterior lumbar interbody fusion 2.Follow up with PCP for surgical clearance 3.Review of surgical risks and benefits as well as an educational packet on the proposed surgical procedure. Risks: All surgical procedures come with inherent risks, including those related to positioning, anesthesia, intraoperative findings, and postoperative complications. It is important to understand that surgery does not come with any guarantee of a successful outcome as complications and adverse events are always possible. The patient was given a handout in office today discussing the surgical procedure and risks associated with the intervention, both of which were discussed with the patient. These risks include but are not limited to the following: * Experiencing same, different or even worse symptoms in back, neck, arms, or legs compared to before surgery. Requiring further surgery or other forms of treatment presently or at some time in the future at same or other levels of the intended spine surgery. On an extreme but fortunately relatively rare basis severe complication such as blindness, stroke, heart attack, temporary and/or permanent nerve injury, paralysis, coma, or may occur, sometimes without known explanation. Surgical complications may include but are not limited to risk of infection, fluid accumulation in the surgical dissection site, including a seroma or hematoma, that requires additional surgery, wound drainage, bleeding, new numbness or weakness, vision changes/loss, spinal fluid leakage, non-healing and/or infected incision, headaches, difficulty or inability to swallow, hoarseness, hemopneumothorax, pneumothorax, impotence, retrograde ejaculation, vaginal dryness; injury to nerves, spinal cord, blood vessels, lymphatics or other vital organs (i.e., bowel injury, injury to the great vessels); heterotopic bone formation; complications related to the hardware such as screws, rods, cages including misplaced hardware, device failure, instrumentation at the wrong spine level, hardware fracture/breakage, or hardware loosening; vertebral failure of the spinal column above or below the newly placed hardware; retained surgical instrumentations or devices and the need for further surgery. * Medical risks of the planned spine surgery include but are not limited to generalized Infections to the whole body or local areas outside of the surgical site (sepsis), heart attack, bleeding, anaphylaxis, meningitis, seizure, epilepsy, hearing loss, burn patel, laceration of the head or other areas of the body, bruising, hypersensitivity of the skin, bladder over d istension; allergic reaction; shoulder injury related to positioning; fat, blood and air clots to other areas of the body like heart, lungs, brain; failure of internal organs such as lungs, kidneys, liver and excessive bleeding. If blood transfusions are necessary, note that transfusions may cause intolerance reactions such as anaphylaxis or other complex reactions. Despite best efforts, the results of spine surgery might not heal in terms of bone, soft tissues such as skin, fascia, ligaments, and joints. Additionally, in order to achieve best possible results, spine surgery may be carried out beyond the initially planned levels and involve decompression, fusion including insertion of hardware at levels other than the original intended area of surgical interest change some portions of the procedure in order to ensure the best possible outcomes. With spine surgery and spinal fusion, there are different off label uses of instrumentation (devices, implants and hardware) as well as biological substances (bone morphogenic proteins, demineralized bone matrix) as well as using extra bone from allograft sources (i.e. cadaver bone) or autograft (iliac crest bone, ribs, or the spine itself). The patient has been given information about these practices and their inherent risks and benefits. [facility] is an educational center that serves as a training facility for neurosurgical and orthopedic IT SUPPORT SPECIALIST and Nursing students. Physician assistants are medically trained surgical providers who function in the outpatient, inpatient, and operating room setting under the direct supervision of the attending surgeon. [facility] has multiple operating rooms with single and overlapping rooms running daily. They currently function under the required guidelines as produced by the [facility] Finance Committee with regards to the overlapping rooms and will continue to comply with changes to this policy as they occur. The requirements include and are complied with as follows: (1) the critical portions of the overlapping rooms will not occur at the same time, (2) the attending physician will be physically present during the critical portions of the procedure and immediately available during the entire case, and (3) a back-up attending is designated should the primary attending not be immediately available. The patient has had a chance to review all the listed information, has been given print outs detailing this information, and has had all his/her questions answered to their satisfaction. It was my pleasure to have seen and examined Mr. Causey. In our visit today we have had a chance to go over my understanding of our patient's current condition, the natural course history without intervention and various interventional options. Questions were invited and answered, and the patient wishes to proceed as outlined above. I have seen and examined the patient for 25 minutes and we have spent more than 50% of the time in repeat and detailed counseling about the patient's condition, its natural course history with out and as much as can be predicted with surgery and re-review of various surgical treatment options. In conclusion, Mr. Causey requested we proceed with the above suggested surgery and are willing to accept risks and limitations of the suggested surgery as nature of the disease process and our best attempts at treatment for the condition. Thank you again for allowing us to be part of your patient's care. Please don't hesitate to contact me if you have any further questions. Follow-up: Preoperative Evaluation Patient Education: (Informational booklet, instructions, etc) given at today's appointment: Yes .ED:Patient Education: Y Medications Reviewed: YES In our visit today Mr. Causey and I have had a chance to go over my understanding of the patient's current condition, the natural course history without intervention and various interventional options. Questions were invited and answered, and the patient wishes to proceed as outlined above. I will be sure to keep you updated afterMrDaniel Causey returns here for further follow-up. Thank you again for your referral. Please do not hesitate to contact me if you have any further questions. Signed and authenticated by: Orlando Garcia [facility] [address] [place] [id number] This message is confidential, intended only for the named recipient(s) and may contain information that is privileged or exempt from disclosure under applicable law. If you are not the intended recipient(s), you are notified that the dissemination, distribution or copying of this information is strictly prohibited. If you received this message in error, please notify the sender then delete this message. Patient verbalizes understanding of the information discussed. The above note was initiated by Danielle Nichols, physician recording assistant city attorney for Dr. Orlando Triplett. This note has been reviewed by Dr. Triplett, who has made his personal changes and impressions for this document. CC: Doron Long M.D. Past Medical History Past Medical History: COPD, Prostate Disorder Additional Past Medical History / Comment(s): Pneumothorax, Emphesema History of Any Multi-Drug Resistant Organisms: None Reported Past Surgical History: Back Surgery, Orthopedic Surgery Additional Past Surgical History / Comment(s): BACK AND NECK SURG. KNEE SURG. GREAT TOE SURG. Past Anesthesia/Blood Transfusion Reactions: No Reported Reaction Past Psychological History: No Psychological Hx Reported Additional Psychological History / Comment(s): . Smoking Status: Former smoker Past Alcohol Use History: None Reported Additional Past Alcohol Use History / Comment(s): medical marijuana card Past Drug Use History: Marijuana - Past Family History Mother Family Medical History: No Reported History Additional Family Medical History / Comment(s): at 42. Father Family Medical History: Cancer, Myocardial Infarction ([place]) Additional Family Medical History / Comment(s): at 67, [place]. prostate cancer Medications and Allergies Home Medications Medication Instructions Recorded Confirmed Type oxyCODONE HCL/ACETAMINOPHEN 1 tab PO Q6HR PRN 09/24/15 03/11/23 History [Percocet 10-325 mg] Albuterol Inhaler [Ventolin Hfa 1 - 2 puff INHALATION RT-Q6H PRN 10/30/18 03/11/23 History Inhaler] Alpha Lipoic Acid 50 mg PO DAILY 03/11/23 03/11/23 History Ascorbic Acid [Vitamin C] 500 mg PO DAILY 03/11/23 03/11/23 History Calcium Carbonate [Calcium] 600 mg PO DAILY 03/11/23 03/11/23 History Cholecalciferol [Vitamin D3 (25 25 mcg PO DAILY 03/11/23 03/11/23 History Mcg = 1000 Iu)] Mirabegron [Myrbetriq] 25 mg PO DAILY 03/11/23 03/11/23 History Tamsulosin [Flomax] 0.4 mg PO HS 03/11/23 03/11/23 History Turmeric Root Extract [Turmeric] 500 mg PO DAILY 03/11/23 03/11/23 History Umeclidinium Brm/Vilanterol Tr 1 puff INHALATION DAILY 03/11/23 03/11/23 History [Anoro Ellipta 62.5-25 Mcg INH] Allergies Allergy/AdvReac Type Severity Reaction Status Date / Time Penicillins Allergy Rash/Hives Verified 03/11/23 12:01 shellfish derived [Shellfish] Allergy Anaphylaxis Verified 03/11/23 12:01 Physical Examination Osteopathic Statement: *. No significant issues noted on an osteopathic structural exam other than those noted in the History and Physical/Consult.
[~2023-03-18 07:59] MED LIST: ACETAMINOPHEN TAB 500 MG TAB PO PRN; DEXAMETHASONE SOD PHOSPHATE 4 MG/ML 1 ML VIAL IV ONE; GABAPENTIN 300 MG CAP PO PRN; HYDROmorphone 0.5 MG/0.5 ML SYRINGE IVP PRN; LIDOCAINE 1% (10MG/ML) FOR IV START INTRADERMA PRN; MIDAZOLAM 2 MG/2 ML VIAL IV PRN; ONDANSETRON 4 MG/2 ML VIAL IVP ONE; ONDANSETRON 4 MG/2 ML VIAL IVP PRN; TRANEXAMIC 1,000 MG/100ML-NACL 1,000 MG in SALINE 1 100ML.BAG IVPB PRN
[2023-03-18] MEDS ORDERED: LACTATED RINGERS 1,000 ML IV ONE ×2 (08:29→10:32)
[2023-03-18] MEDS ORDERED: DEXAMETHASONE SOD PHOSPHATE 4 MG/ML 1 ML VIAL IVP ONE (08:53)
[2023-03-18] MEDS ORDERED: ONDANSETRON 4 MG/2 ML VIAL IVP ONE (08:54)
[2023-03-18] MEDS ORDERED: GABAPENTIN 300 MG CAP PO ONE (08:54)
[2023-03-18 09:02] LABS: INR 0.9 (<1.2); Prothrombin Time 10.4 sec (10.0-12.5)
[2023-03-18] MEDS ORDERED: LIDOCAINE 1% INJ 10MG/ML (20 ML MDV) ONE (10:27)
[2023-03-18] MEDS ORDERED: PROPOFOL 10 MG/ML 20 ML VIAL IV ONE (10:27)
[2023-03-18] MEDS ORDERED: GLYCOPYRROLATE 0.2 MG/ML 2 ML VIAL ONE (10:27)
[2023-03-18] MEDS ORDERED: HYDROmorphone (PF) 1 MG/ML ONE (10:27)
[2023-03-18] MEDS ORDERED: NEOSTIGMINE 1 MG/ML 10 ML VIAL ONE (10:27)
[2023-03-18] MEDS ORDERED: MIDAZOLAM 2 MG/2 ML VIAL ONE (10:27)
[2023-03-18] MEDS ORDERED: SUCCINYLCHOLINE CHLORIDE 200 MG/10 ML VIAL IV ONE (10:27)
[2023-03-18] MEDS ORDERED: PHENYLEPHRINE 10 MG/ML 5 ML VIAL ONE (10:27)
[2023-03-18] MEDS ORDERED: TRANEXAMIC 1,000 MG/100ML-NACL PREMIX BAG ONE (10:27)
[2023-03-18] MEDS ORDERED: fentaNYL (PF) 50 MCG/ML 2 ML AMP ONE (10:27)
[2023-03-18] MEDS ORDERED: KETAMINE HCL IN 0.9 % NACL 50 MG/5 ML SYRINGE ONE (10:27)
[2023-03-18] MEDS ORDERED: ROCURONIUM 10 MG/ML (5 ML VIAL) IV ONE (10:27)
[2023-03-18] MEDS ORDERED: THROMBIN (BOVINE) 5,000 UNIT VIAL TOPICAL ONE (10:55)
[2023-03-18] MEDS ORDERED: GELATIN SPONGE,ABSORB (LARGE) 1 EACH SPONGE TOPICAL ONE (10:55)
[2023-03-18] MEDS ORDERED: VANCOMYCIN 1,000 MG VIAL MISCELLANE ONE (12:30)
--- NOTE | 2023-03-18 12:49 | XR ---
Intraoperative/procedural fluoroscopic services were provided for lumbar fusion. Total fluoroscopy ti me is 48.5 seconds with a total of 5 submitted images to PACS. Total DAP 5.8583 Gycm2. Please see th e operative note for further details.
[2023-03-18] MEDS ORDERED: HYDROmorphone 0.5 MG/0.5 ML SYRINGE IVP PRN (12:58)
[2023-03-18] MEDS ORDERED: MAGNESIUM HYDROXIDE 2,400 MG/30 ML CUP PO PRN (12:58)
[2023-03-18] MEDS ORDERED: ONDANSETRON 4 MG/2 ML VIAL IVP PRN (12:58)
--- NOTE | 2023-03-18 12:58 | P.OP ---
Date of Procedure: 03/18/23 Preoperative Diagnosis: 1. 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 LOW BACK PAIN 3. LE WEAKNESS 4. LE RADICULLPATHY WITH PARESTHESIAS Postoperative Diagnosis: 1. 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 LOW BACK PAIN 3. LE WEAKNESS 4. LE RADICULLPATHY WITH PARESTHESIAS Procedure(s) Performed: 1. POSTERIOLATERAL AND INTERBODY FUSION L2-3 (94910) 2. DECOMPRESSIVE LAMINECTOMY, BILATERAL WITH FACETECTOMY AND FORAMINOTOMY (13356) 3. INSTRUMENTATION L2-3 (54652) 4. INSERTION OF BIOMECHANICAL DEVICE (89947) USE OF IONM ALL SCREWS TESTING >20 mA Implants: -GLOBUS CREO SCREW/RODS -CASCADIA STATIC 10/10MM SHORT CAGE -MAGNATOS, VENTRIS, AUTOGRAFT, ALLOGRAFT. Anesthesia: GETA Surgeon: Orlando Triplett Financial Specialist #1: Vijay Hankins (OLYA Cutler Was present and assisted with all aspects of the case from positioning to dressing placement) Estimated Blood Loss (ml): 100 IV fluids (ml): 1,200 Urine output (ml): 350 Pathology: none sent Condition: stable Disposition: PACU Indications for Procedure: Mr. Causey is presenting for evaluation of low back and right lower extremity pain, right lower extremity numbness, tingling, and weakness. It was my pleasure to have seen and examined Mr. Causey. In our visit today we have had a chance to go over subjective complaints, physical examination findings and treatments including the natural course history without intervention and various interventional options. The patients imaging demonstrates: XRay Lumbar Multiview (AP, Lateral, Flexion, Extension) with AP pelvis; 5 views taken at [facility] on 12/04/22: - Re-reviewed with the patient today Mild to moderate multilevel spondylitic and degenerative changes with preserved alignment. There is hardware present from previous surgery L5-S1 rods and screws. Hardware is intact with no migration. Grade 1 anterolisthesis L5 on S1. Multilevel diminished disc height. Vertebral body heights are preserved. No acute osseous abnormalities. Pelvis: The visualized sacrum and iliac wings are within normal limits. MRI of the lumbar spine without contrast completed on 12/11/2022 at [facility]: Images reviewed with pt. These demonstrate a large L2-3 HNP eccentric to the left causing left foraminal, central and lateral recess stenosis that is moderate to severe in nature. There is displacement of the thecal sac posterior and to the right due to the herniation size. This is a disc osteophyte complex and is ridgid in nature. There is spondylosis of this level with facet arthrosis as well that is moderate. There is height collapse and mild segmental kyphosis due to the collapse. No fracture noted. No lesions. The remainder of the lumbar spine visualized shows mild to moderate spondylotic changes with varying degress of central and foraminal stenosis due to disc bulges and spondylotic changes. computed tomography scan of the lumbar spine 01/24/2023 done at [facility]: images reviewed demonstrate disc osteophyte complex L2-L3 with moderate to severe central and bilateral foraminal stenosis. There is spondylosis noted with facet arthropathy. Multilevel degenerative changes noted. Postsurgical changes L5-S1 noted from previous fusion construct. No other fractures or dislocations otherwise noted. On physical exam, Mr. Causey demonstrates: a continued ache-like pain throughout the low back that radiates down into the right lower extremity. He notes his leg pain is associated with numbness, tingling, and weakness. The patient reports experiencing continued groin pain upon the right side. 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 The patient reports experien cing severe sleep disturbances related to his ongoing pain and associated symptoms. The patient states that his symptoms have started to become intractable. The patient has history of an L5-S1 decompression and fusion completed approximately 15 years ago in [place]. He notes this surgery initially provided him with mild relief, though his pain has been worsening over the last 13 to 14 years, becoming most severe over the last 1 to 2 years. I have explained to the patient that as their condition progresses it will cause further neurological deficits and eventual paralysis. Based on the patients im aging, physical exam, and the rapid progression and disabling nature of their symptoms, at this time I recommend surgery in the form of a: L2-3 open posterior lumbar interbody fusion. I discussed the risk and benefits of this procedure at length with Mr. Causey. The patient agreed to considered pursuing the procedure abovementioned. Prior to surgery, she should follow up with her PCP (Cardio, ID, IM etc) for clearance. Questions were invited and answered, and the patient wishes to proceed as outlined below. Currently, I am recommendin.L2-3 open posterior lumbar interbody fusion Description of Procedure: L2-3 OPEN PLIBF The patient was seen and examined in the preoperative area. All preoperative protocols were followed. Informed consent was obtained, risks and benefits of the procedure were discussed at length. Risks including bleeding infection damage to the surrounding tissue and risk of re-operation were discussed with the patient. Risk of anesthesia up to and including was discussed with the patient. These are outlined in the risk review. They were willing to accept these risks and all the risks of surgery. The patient was given a weight-based dose of antibiotics in the form of 2 g Ancef. The patient was seen and evaluated by the anesthesia team who deemed them fit for surgery. The site was marked, the patient was willing to proceed with the procedure. The patient was transferred to the operative suite by the Department of anes thesia. They were then drifted off to sleep by the department anesthesia and GETA was performed. The patient tolerated this well. Salomon catheter was placed by nursing staff, a-traumatically. Once confirmation of lines and ventilation the patient was transferred to a prone Dong table very carefully. All bony prominences including wrists, elbows, axilla, chest, hips, and thighs, and feet were padded very well. Special attention was paid to the genitalia, and these were padded accordingly. SCDs were placed on bilateral lower extremities and were connected. Arms were well padded and placed on arm boards up and out in the 90/90 position. Once in position, again we confirmed good ventilation capabilities and that lines were running appropriately. The patients Lumbar spine was then exposed. 1010s were placed outlining the incision site. Standard alcohol was used to clean the incision site and allowed to dry. C-arm was used to needle localize the pedicles at L3-5 and bio-xochitl the patient and confirm level for incision which was marked with a skin marker. Operative briefing was performed with all teams and everyone in agreement to proceed. The patient was then prepped and draped in a normal sterile fashion. Timeout was then performed, and all parties agreed with the procedure to be performed. Midline skin incision was made over the previously bio-marked area and dissec tion taken down over the SP of L2-4. L2-3 was taken out over facet joints and TPs and a penfield 4 used to xochitl the L3 pedicle. Lateral image used to confirm levels. Once confirmed, screws were placed b/l at pedicles from L2-3 using Lateral C arm and free hand technique. [place] was used to create a pilot highway patrol hole, gear shift passed then a ball tip feeler to confirm within the pedicles. Screw was measured and placed. Once screws were placed they were confirmed to be in good position using AP and Lateral fluoroscopy. The wound was then irrigated. Screws were tested and all tested above 20 mA. We then proceeded to decompression and cage placement. Attention was then turned to interbody fusion at L2-3. Bilateral laminectomy, complete facetectomy and foraminotomy performed at L2-3 using high speed siomara and Kerrison rongure. The ligamentum was removed and the dural sac decompressed. Exiting and traversing roots visualized and decompressed. Right side disc herniation was identified as extraforaminal and removed. Neural elements were then protected, and disc space accessed with an osteotome. Sequential shaving then done under lateral imaging and complete discectomy performed using howard, pituitary and curette. This was done bilateral with the Oskouian machine brusher holding position of the side that was not being shaved or cleaned at the time. Once good bleeding endplates accomplished and good height judaism with trials, a combination of autograft, allograft and synthetic placed anterior in the disc space. The cages were then selected and impacted into place under lateral imaging bilaterally. The cages were then expanded sequentially, restoring height, lordosis and alignment. The cages were then backfilled with bone graft through a funnel. The human resources director was removed and the area inspected. Good cage placement, stable cage and no injuries. Area was irrigated copiously, and meticulous hemostasis achieved. Rods were then sized and selected and placed into L3 screws b/l. Set screws locked these in place and then sequentially reduced into L2 b/l for reduction. This was accomplished. Set screws were then all placed and final tightened. A cross link was selected and placed and final tightened. TPs were then decorticated with high speed siomara. The wound was the irrigated with 3L ancef irrigation, 3L gentamicin irrigation and 3L NSS. Surgical was placed over the du ra. Autograft and Ventris then placed in the posterolateral gutters and impacted into place. Deep drain placed and secured to the skin. 2 g Vancomycin powder placed in the wound bed. Final images confirmed good placement of hardware and good reduction of listhesis as well as judaism of height and lordosis. Facia was then closed with #1 PDS. Deep subq closed with 0 Vicryl. Superficial subq closed with 2-0 Vicryl and skin with natasha. Wound edges approximated very well. Wound was then cleaned with alcohol and dried. Wounds dressed with Optifoam dressings. The patient was then transferred off the table back to their hospital bed a- traumatically. Drain continued to hold suction. They were extubated by the department of anesthesia. They were then transferred to PACU in stable condi tion having tolerated the procedure with no complications.
[2023-03-18] MEDS: HYDROmorphone 1 MG/ML 1 ML SYRINGE IVP PRN ×2 (15:01→20:07)
[2023-03-18] MEDS: LACTATED RINGERS 1,000 ML IV SCH (15:23)
[2023-03-18] MEDS: CYCLOBENZAPRINE 10 MG TAB PO PRN (17:34)
[2023-03-18] MEDS: ACETAMINOPHEN TAB 325 MG TAB PO SCH (17:34)
[2023-03-18] MEDS ORDERED: ALBUTEROL NEBULIZED 2.5 MG/3 ML INHALATION PRN (18:11)
[2023-03-18] MEDS: TAMSULOSIN 0.4 MG CAP.ER.24H PO SCH (20:00)
[2023-03-18] MEDS: GABAPENTIN 300 MG CAP PO SCH (20:00)
[2023-03-18] MEDS: SENNOSIDES-DOCUSATE SODIUM 1 EACH TAB PO SCH (21:52)
[2023-03-19] MEDS: ACETAMINOPHEN TAB 325 MG TAB PO SCH ×4 (02:01→17:40)
[2023-03-19] MEDS: HYDROmorphone 1 MG/ML 1 ML SYRINGE IVP PRN ×5 (02:01→15:57)
[2023-03-19] MEDS: LACTATED RINGERS 1,000 ML IV SCH (05:36)
--- NOTE | 2023-03-19 08:46 | CT ---
EXAMINATION TYPE: CT lumbar spine wo con DATE OF EXAM: 03/18/2023 COMPARISON: 01/24/2023 HISTORY: 62-year-old male status post L2-3 fusion post op TECHNIQUE: Contiguous axial scanning of the lumbar spine without IV contrast. Coronal and sagittal re constructions performed. CT DLP: 461.6 mGycm Automated exposure control for dose reduction was used. FINDINGS: Vertebral body heights are preserved. Similar trace degenerative grade 1 anterolisthesis of diffuse L5-S1 level. Advanced hypertrophic face t arthropathy lower lumbar spine. Mild degenerative disc disease throughout. Interval L2-L3 laminotomy change and posterior fusion. There are recent postoperative changes with ed vish and numerous foci of air. Posterior midline skin natasha. There appears to be some residual diffu sely bulging disc material encroaching onto the ventral epidural space but there has been dorsal deco mpression of the spinal canal. Bulging disc continues to encroach into the inferior aspect of the lef t neural foramen though the patient is status post bilateral foraminotomies as well. Moderate bilateral neuroforaminal stenosis at the fused L5-S1 level. IMPRESSION: 1. FRESH POSTOPERATIVE CHANGES OF L2-L3 LAMINOTOMY CHANGE AND POSTERIOR FUSION HARDWARE PLACEMENT. TH ERE ALSO APPEAR TO BE BILATERAL FORAMINOTOMIES. RESIDUAL DIFFUSE BULGING DISC IS PRESENT HERE THOUGH THERE HAS BEEN DECOMPRESSION OF THE DORSAL SPINAL CANAL. THERE ALSO APPEAR TO BE BILATERAL FORAMINOTO MIES. 2. FIXED GRADE 1 ANTEROLISTHESIS L5-S1 WITH POSTERIOR FUSION HARDWARE IN PLACE. MODERATE BILATERAL NE UROFORAMINAL STENOSIS AT THIS LEVEL.
[2023-03-19] MEDS ORDERED: NON FORMULARY DRUG (Alpha Lipoic Acid [Alpha Lipoic Acid] 50 MG Tablet) PO SCH (09:00)
[2023-03-19] MEDS: GABAPENTIN 300 MG CAP PO SCH ×2 (09:40→20:18)
[2023-03-19] MEDS: CHOLECALCIFEROL 25 MCG (1000 IU) TABLET PO SCH (09:40)
[2023-03-19] MEDS: SENNOSIDES-DOCUSATE SODIUM 1 EACH TAB PO SCH (09:40)
[2023-03-19] MEDS: CALCIUM CARBONATE 500 MG CHEWABLE PO SCH (09:40)
[2023-03-19] MEDS: ASCORBIC ACID 500 MG TAB PO SCH (09:40)
[2023-03-19] MEDS: FORMOTEROL FUMARATE 20 MCG/2 ML NEBU INHALATION SCH ×2 (10:06→21:35)
[2023-03-19] MEDS: IPRATROPIUM 0.5 MG/2.5 ML NEBU INHALATION SCH ×4 (10:06→21:34)
--- NOTE | 2023-03-19 10:36 | P.PN ---
Subjective Progress Note Date: 03/19/23 Principal diagnosis: postop day 1 L2-L3 posterior lateral interbody fusion patient seen and examined is doing fairly well. Sitting up in chair. Been up and about. He did have some retention so catheters placed again. Denies fevers chills shortness of breath or chest pain. Denies any perineal numbness or tingling. Tolerating his diet currently. Passing gas. Objective - Vital Signs Vital signs: Vital Signs Temp 99.4 F 03/19/23 07:22 Pulse 80 03/19/23 07:22 Resp 15 03/19/23 07:22 BP 125/63 03/19/23 07:22 Pulse Ox 97 03/19/23 07:22 FiO2 Intake & Output 03/18/23 03/19/23 03/19/23 18:59 06:59 18:59 Intake Total 1500 Output Total 100 2525 Balance 1400 -2525 Weight 66.9 kg Intake: IV 1500 Output: Urine 2525 Straight 1075 Estimated Blood Loss 100 Other: # Voids 0 - Exam Physical Exam: -Patient is alert and oriented 3 appears well-nourished well-hydrated is in no acute distress. They do not appear septic. -There is TTP about the incision [-Incision is CDI, no EEE, no drainage] -Upper extremities show [5] out of 5 strength in all major muscle groups. -Lower extremities with [5] out of 5 strength in all major muscle groupslower extremity slightly weak when standing up when he is up. Strong -There is [FROM] that is [painless] of the b/l UE and LE in all major joints. negative tension signs no straight leg raise -They are intact to light touch sensation in C5 to T1 and L2 to S1 nerve distribution. -DTR [2]/4 all upper and lower extremities -Patient has palpable distal pulses all 4 ext -Compartments are soft and compressible. -Patient shows a negative Donaldo's [-Neg Hoffmans b/l] [-Neg Clonus b/l] [-Neg babinski b/l] Cranial nerves II through XII are grossly intact. - Labs CBC & Chem 7: 03/18/23 08:40 Assessment and Plan Assessment: 62-year-old male postop day 1 L2-L3 posterior lateral and interbody fusion. Plan: -Appreciate solutions delivery consultant and team management. -Activity: Ambulate QID, OOB all meals, up and about, limit lifting bending twisting to less than 5 lbs. Use walker or cane if needed for stability. -Daily PT/OT, increase ambulation strength and balance. -[Brace when up and about, not needed in bed or chair] -Pain control: [Adequate at this time] -Meds: [reviewed] -GI ppx: senna, Miralax -DC blakely when up and about, bedside commode if needed -DVT PPX: [OK to restart Heparin tonight] -Hygiene: Shower today. Maintain dressing clean and dry. Meticulous cleaning after BMs away from incision site -Drains: [Maintain for now. Record output] 100 mL out overnight -Encourage IS 10x/hr -Dispo:plan on discharge home tomorrow likely if drain can be pulled.
[2023-03-19 10:58] LABS: Basophils # (A) 0.03 X 10*3/uL (0.00-0.10); Basophils % (A) 0.2 %; Eosinophils # (A) 0.01 X 10*3/uL (0.04-0.35); Eosinophils % (A) 0.1 %; HCT 35.8 % (39.6-50.0); Lymphocytes # (A) 1.46 X 10*3/uL (0.90-5.00); Lymphocytes % (A) 9.6 %; MCHC 33.5 d/dL (32.0-37.0); MCV 98.4 FL (80.0-97.0); Mean Platelet Volume 9.7 FL (9.5-12.2); Monocytes # (A) 1.34 X 10*3/uL (0.20-1.00); Monocytes % (A) 8.8 %; NRBC Per 100 WBC 0 X 10*3/uL (0.00-0.01); Neutrophils # (A) 12.29 X 10*3/uL (1.80-7.70); Neutrophils % (A) 80.9 %; Platelet Count 241 X 10*3/uL (140-440); RBC 3.64 X 10*6/uL (4.40-5.60); RDW 13.2 % (11.5-14.5); WBC 15.19 X 10*3/uL (4.50-10.00)
[2023-03-19 11:10] LABS: BUN/Creat Ratio 15.11 Ratio (12.00-20.00); Blood Urea Nitrogen 13.6 mg/dL (9.0-27.0); Calcium 8.9 mg/dL (8.7-10.3); Carbon Dioxide 24.7 mmol/L (21.6-31.8); Chloride 104 mmol/L (96-109); Glucose 105 mg/dL (70-110); Potassium 4.5 mmol/L (3.5-5.5); Sodium 140 mmol/L (135-145)
[2023-03-19] MEDS: CYCLOBENZAPRINE 10 MG TAB PO PRN ×2 (11:36→20:20)
--- NOTE | 2023-03-19 11:55 | P.CONS ---
History of Present Illness - Reason for Consult Urinary retention, leukocytosis - History of Present Illness Patient is admitted for L to L3 posterior lateral leg interbody fusion surgery patient is doing clinically well after surgery but didn't pass gas yet. Didn't move his bowel yet. Patient is on multiple pain medications at this time and patient had urinary retention yesterday requiring Salomon catheter which will be removed tomorrow. Patient uses Flomax at home which was resumed. Patient does have some leukocytosis without any evidence of infection at this time patient doesn't have any cough doesn't have any symptoms of UTI although patient is fully catheter in place. REVIEW OF SYSTEMS: CONSTITUTIONAL: No fever, no malaise, no fatigue. HEENT: No recent visual problems or hearing problems. Denied any sore throat. CARDIOVASCULAR: No chest pain, orthopnea, PND, no palpitations, no syncope. PULMONARY: No shortness of breath, no cough, no hemoptysis. GASTROINTESTINAL: No diarrhea, no nausea, no vomiting, no abdominal pain. NEUROLOGICAL: No headaches, no weakness, no numbness. HEMATOLOGICAL: Denies any bleeding or petechiae. GENITOURINARY: Denies any burning micturition, frequency, or urgency. MUSCULOSKELETAL/RHEUMATOLOGICAL: Denies any joint pain, swelling, or any muscle pain. ENDOCRINE: Denies any polyuria or polydipsia. The rest of the 14-point review of systems is negative. PHYSICAL EXAMINATION: GENERAL: The patient is alert and oriented x3, not in any acute distress. Well developed, well nourished. HEENT: Pupils are round and equally reacting to light. EOMI. No scleral icterus. No conjunctival pallor. Normocephalic, atraumatic. No pharyngeal erythema. No thyromegaly. CARDIOVASCULAR: S1 and S2 present. No murmurs, rubs, or gallops. PULMONARY: Chest is clear to auscultation, no wheezing or crackles. ABDOMEN: Soft, nontender, nondistended, normoactive bowel sounds. No palpable organomegaly. MUSCULOSKELETAL: Deferred to orthopedic surgery EXTREMITIES: No cyanosis, clubbing, or pedal edema. NEUROLOGICAL: Gross neurological examination did not reveal any focal deficits. SKIN: No rashes. Assessment and plan -Urinary retention secondary to surgery, pain medications along with BPH. Continue with Salomon catheter today voiding trial tomorrow. -Vertebral fusion surgery: Pain management due to prophylaxis as per primary service -Leukocytosis reactive secondary to surgery no further intervention is necessary at this time patient doesn't have any evidence of infection at this time Past Medical History Past Medical History: COPD, Prostate Disorder Additional Past Medical History / Comment(s): Pneumothorax, Emphesema History of Any Multi-Drug Resistant Organisms: None Reported Past Surgical History: Back Surgery, Orthopedic Surgery Additional Past Surgical History / Comment(s): BACK AND NECK SURG. KNEE SURG. GREAT TOE SURG. Past Anesthesia/Blood Transfusion Reactions: No Reported Reaction Smoking Status: Never smoker - Past Family History Mother Family Medical History: No Reported History Additional Family Medical History / Comment(s): at 42. Father Family Medical History: Cancer, Myocardial Infarction ([place]) Additional Family Medical History / Comment(s): at 67, [place]. prostate cancer Medications and Allergies Home Medications Medication Instructions Recorded Confirmed Type oxyCODONE HCL/ACETAMINOPHEN 1 tab PO Q6HR PRN 09/24/15 03/18/23 History [Percocet 10-325 mg] Albuterol Inhaler [Ventolin Hfa 1 - 2 puff INHALATION RT-Q6H PRN 10/30/18 03/18/23 History Inhaler] Alpha Lipoic Acid 50 mg PO DAILY 03/11/23 03/18/23 History Ascorbic Acid [Vitamin C] 500 mg PO DAILY 03/11/23 03/18/23 History Calcium Carbonate [Calcium] 600 mg PO DAILY 03/11/23 03/18/23 History Cholecalciferol [Vitamin D3 (25 25 mcg PO DAILY 03/11/23 03/18/23 History Mcg = 1000 Iu)] Mirabegron [Myrbetriq] 25 mg PO DAILY 03/11/23 03/18/23 History Tamsulosin [Flomax] 0.4 mg PO HS 03/11/23 03/18/23 History Turmeric Root Extract [Turmeric] 500 mg PO DAILY 03/11/23 03/18/23 History Umeclidinium Brm/Vilanterol Tr 1 puff INHALATION DAILY 03/11/23 03/18/23 History [Anoro Ellipta 62.5-25 Mcg INH] Allergies Allergy/AdvReac Type Severity Reaction Status Date / Time Penicillins Allergy Rash/Hives Verified 03/18/23 08:47 shellfish derived [Shellfish] Allergy Anaphylaxis Verified 03/18/23 08:47 Physical Exam Vitals: Vital Signs Temp Pulse Pulse Resp BP Pulse Ox 03/19/23 07:22 99.4 F 80 15 125/63 97 03/19/23 01:19 99.5 F 89 16 131/77 97 03/18/23 20:11 97.8 F 88 16 132/81 95 03/18/23 15:35 78 110/65 93 L 03/18/23 15:20 85 125/75 93 L 03/18/23 15:05 77 136/77 94 L 03/18/23 14:50 79 142/72 96 03/18/23 14:35 73 151/77 96 03/18/23 14:15 80 16 145/79 95 03/18/23 14:00 72 16 141/67 94 L 03/18/23 13:45 69 16 154/79 93 L 03/18/23 13:30 73 16 158/77 93 L 03/18/23 13:15 73 16 155/73 100 03/18/23 13:00 97.2 F L 68 14 140/68 100 Intake and Output 03/18/23 03/19/23 03/19/23 22:59 06:59 14:59 Output Total 1600 925 Balance -1600 -925 Output: Urine 1600 925 Straight 1075 Other: # Voids 0 Results CBC & Chem 7: 03/19/23 06:00 03/19/23 06:00 Labs: Abnormal Lab Results - Last 24 Hours (Table) 03/19/23 Range/Units 06:00 WBC 15.19 H (4.50-10.00) X 10*3/uL RBC 3.64 L (4.40-5.60) X 10*6/uL Hgb 12.0 L (13.0-17.0) d/dL Hct 35.8 L (39.6-50.0) % MCV 98.4 H (80.0-97.0) FL MCH 33.0 H (27.0-32.0) pg Neutrophils # 12.29 H (1.80-7.70) X 10*3/uL Monocytes # 1.34 H (0.20-1.00) X 10*3/uL Eosinophils # 0.01 L (0.04-0.35) X 10*3/uL
[2023-03-19] MEDS: oxyCODONE-APAP 10-325MG 1 EACH TAB PO PRN ×2 (17:39→22:03)
[2023-03-19] MEDS: TAMSULOSIN 0.4 MG CAP.ER.24H PO SCH (20:18)
[2023-03-19] MEDS: HEPARIN SODIUM,PORCINE 5,000 UNIT/ML 1 ML VIAL SQ SCH (20:18)
[2023-03-20] MEDS: ACETAMINOPHEN TAB 325 MG TAB PO SCH ×3 (06:11→12:13)
[2023-03-20] MEDS: LACTATED RINGERS 1,000 ML IV SCH (06:19)
[2023-03-20] MEDS: oxyCODONE-APAP 10-325MG 1 EACH TAB PO PRN ×2 (08:52→12:52)
[2023-03-20] MEDS: HEPARIN SODIUM,PORCINE 5,000 UNIT/ML 1 ML VIAL SQ SCH (08:52)
[2023-03-20] MEDS: SENNOSIDES-DOCUSATE SODIUM 1 EACH TAB PO SCH (08:54)
[2023-03-20] MEDS: ASCORBIC ACID 500 MG TAB PO SCH (08:54)
[2023-03-20] MEDS: GABAPENTIN 300 MG CAP PO SCH (08:55)
[2023-03-20] MEDS: CHOLECALCIFEROL 25 MCG (1000 IU) TABLET PO SCH (08:55)
[2023-03-20] MEDS: CALCIUM CARBONATE 500 MG CHEWABLE PO SCH (08:55)
[2023-03-20] MEDS: IPRATROPIUM 0.5 MG/2.5 ML NEBU INHALATION SCH ×2 (09:36→12:35)
[2023-03-20] MEDS: FORMOTEROL FUMARATE 20 MCG/2 ML NEBU INHALATION SCH (09:36)
[2023-03-20 10:57] VITALS: BP 112/76; RESP 17; TEMP 99
--- NOTE | 2023-03-20 11:27 | P.PN ---
Subjective Progress Note Date: 03/20/23 Principal diagnosis: Status post L2-L3 posterior lateral decompression fusion Patient was examined today at bedside, he is resting comfortably in his hospital bed. Patient has been up and ambulating with the assistance of a walker. The urinary catheter was removed earlier this morning, he is hoping to urinate on his own later this morning. Patient's pain is well-controlled. He denies headaches, lightheadedness, chest pain or shortness of breath Objective - Vital Signs Vital signs: Vital Signs Temp 99 F 03/20/23 10:51 Pulse 90 03/20/23 10:51 Resp 17 03/20/23 10:51 BP 112/76 03/20/23 10:51 Pulse Ox 92 L 03/20/23 10:51 FiO2 Intake & Output 03/19/23 03/20/23 03/20/23 18:59 06:59 18:59 Output Total 1570 800 Balance -1570 -800 Output: Drainage 70 Lower Back 70 Urine 1500 800 Other: Voiding Method Toilet Urinal # Voids 5 - Exam Gen: AOx3, NAD VSS stable at this time Integument: Dressing was removed today bedside, drain was also removed. [place] are in good position and condition, no active drainage. New dressing was applied at bedside Palpation: Mild tenderness with palpation to the lumbar paraspinal region ROM: Full range of motion in all major muscle groups of the bilateral upper and lower extremities, no focal deficits appreciated Sensory Exam: Senory exam to light touch is intact C5-T1 Senosry exam to light touch is intact L2-S1 Motor: 5/5 strength appreciated in the bilateral upper extremities with shoulder elevation, shoulder abduction, elbow extension, elbow flexion, wrist extension, wrist flexion, entrance guard 5/5 strength appreciated in the bilateral lower extremities with hip elevation, knee extension, knee flexion, plantar flexion, dorsiflexion, EHL, FHL Reflexes: 2/4 in all UE and LE Negative Deanna's bilaterally Negative Babinski bilaterally Negative clonus bilaterally - Labs CBC & Chem 7: 03/19/23 06:00 03/19/23 06:00 Assessment and Plan Assessment: Postoperative day #2 status post L2-L3 posterior lateral decompression and fusion Postoperative urinary retention Plan: Pain control, patient has resumed his Percocet 10 mg/325 mg. He remains on Flexeril as needed along with a scheduled gabapentin twice a day DVT prophylaxis, patient has been on heparin during his hospital stay Wound care instructions were discussed today at bedside, this to include dressing changes and showering instructions Discussed with patient and nursing today regarding the urinary issue. The patient is unable to urinate by the afternoon, recommend placing urinary catheter. A consult was placed for urology to evaluate the patient, patient no rmally follows with Dr. Mcginnis, the recommendations are much appreciated Encourage incentive spirometer Weight-bear as tolerated with walker LSO brace when up and ambulating. Medical recommendations appreciated Discharge planning: Plan for discharge to home today Time with Patient: Less than 30
--- NOTE | 2023-03-20 11:34 | P.DS ---
Providers Date of admission: 03/19/23 10:51 Expected date of discharge: 03/20/23 Attending physician: Orlando Triplett DO Consults: 03/18/23 13:01 Consult Physician Routine Consulting Provider: Mickie Henderson Consult Reason/Comments: medical management Do you want consulting provider notified?: Yes 03/19/23 12:36 Consult Physician Routine Consulting Provider: Kermit Mcginnis Reason/Comments: Post operative urinary retention Do you want consulting provider notified?: Yes Primary care physician: Doron Long Hospital Course: Date of admission: 03/18/2023 Date of discharge: 03/20/2023 Admission diagnosis: Status post L2-L3 posterior lateral decompression and fusion Discharge diagnosis: Same Attending physician: Dr. Triplett Surgical procedures: L2-L3 posterior lateral decompression and fusion Brief history: Patient is a 62-year-old male who has evaluated him following with Dr. Triplett in the outpatient setting with regards to low back pain, right lower extremity weakness and radiculopathy. 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 Patient was scheduled for an elective L2-L3 posterior lateral decompression and fusion. Hospital course: Details of patient's surgery can be found in operative report. Patient tolerated the procedure well and was subsequently transported to [facility] floor. Patient's orthopeidc and medical care was provided daily. Patient had daily laboratory tests performed for evaluation of overall blood counts. Patient had daily physical therapy to include strengthening range of motion as well as education with walker ambulation. Patient was treated with compression stockings and heparin for their postoperative DVT prophylaxis during their inpatient stay. Patient was noted to have a relatively uneventful postoperative course. Patient reported satisfactory pain control with oral pain medications by postoperative day 1. Patient showed satisfactory progress with physical therapy. Patient moved steadily through the program and had no difficulty meeting the goals by postoperative day 2. Given patient's otherwise satisfactory course and having met physical therapy goals, plan is to discharge patient home on postoperative day 2. Discharge condition/disposition: Patient will be discharged home in stable condition. Discharge medications: Instructions are given on resumption of patient's normal daily medications per primary care recommendation, in addition patient will be prescribed gabapentin 300 mg, Flexeril 10 mg, Senna S, Duricef 500 mg. Spine Discharge and Recovery Instructions Dressing: Leave your dressing in place for a total of 5 days post operatively. Then you may remove your dressing and leave open to air. Keep the area clean and if not able to keep area clean, then cover with sterile gauze and tape. Showering: You may shower 3 days after your procedure allowing soap and water to run over incision. Do not scrub. Do not soak. Blot dry. Follow up: Please confirm a follow up appointment with your surgeon 3 weeks post operatively. Please make an appointment to follow up with your PCP in 1-2 weeks after surgery for evaluation 3 phase, 3-week plan POST OP WEEKS 1-3 1. Lifting/carrying/pushing/pulling limited to less than 5 pounds. 2. Do not sit for longer than 15 minutes at one time. Get up and walk around. Prolonged sitting is NOT advised. If you lay down, see if you can tolerate laying down on you front (belly side) 3. Walk for periods of 15 minutes = 1 mile but no longer; do it multiple times times each day. 4. Ice your low back after activity. POST OP WEEKS 3-6 1. Lifting limited to less than 20 pounds. 2. Do not sit for longer than 30 minutes at a time. Frequently change positions. Use a sit-to stand workstation or take frequent breaks from sitting if you have returned to work. 3. Walk for 30 minutes each day. If possible, do these three or more times a day POST OP WEEKS 6+ At your 6-week appointment we will give you a physical therapy referral to focus on a core stabilization and strengthening program. You should also work on leg & buttock strengthening, hamstring & quadriceps stretching, and continue a low impact aerobic activity program such as swimming, walking, or riding a stationary bicycle. During the initial 6 weeks after your surgery, you are at the highest risk of re-injuring your spine. You should generally avoid BLTs (bending, lifting and twisting combination motions) and follow the above guidelines to reduce the chance of reinjury. You can anticipate post op appointments in our office at approximately 3 weeks and 6 weeks after your surgery. INCISION CARE: If your incision is not draining you do NOT need to cover it with a dressing. Keep your incision clean, dry and intact. In most cases, we apply skin glue, natasha or sutures to the incision at the time of surgery. This will be like a crust or have the appearance of a scab and will fall off in time on its own. The stitches or natasha need to be removed at 3 weeks post op appointment. You may begin to shower 3 days after surgery (this allows the glue to bravo well). However, please avoid scrubbing the incision site or peeling off any of the skin glue. This will ensure optimal healing of your incision. Also, during this time avoid soaking the incision area in water - this includes swimming pools, hot tubs or baths. No ointments, lotions or oils on the incision until your surgeon allows. Leave natasha, sutures or glue in place. Neurological dysfunction that comes on suddenly can also be a sign of a stroke. Below some common symptoms of a stroke are listed: B - balance difficulty such as sudden onset walking or leaning to one side - NEW E - eye problem such as sudden double vision or trouble seeing on one side - NEW F - Facial weakness or numbness on one side - NEW A - Arm or leg weakness or numbness on one side - NEW S - Slurred speech or difficulty with word finding - NEW T - Time is BRAIN! Call 911 as soon as you recognize these symptoms Diet: Consume a regular diet rich in vegetables and lean protein such as chicken or fish. You should consume in a ratio of approximately 20% fats|40% carbohydrates|40%protein. Vegetables, sweet potatoes, brown rice or quinoa are examples of good carbohydrates. Chips, white bread, cookies and sweets/sugar are examples of bad carbohydrates. Limit your bad carbs, go wild with good carbs. "Life's Simple 7" Guidelines as per [place] [employer] These will help you reclaim your life after surgery and landscaper helper in your recovery, keeping in mind your restrictions. (1) Get Active. Physical activity can help people lose weight, control high blood pressure and cholesterol, feel emotionally better, and sleep better. (2) Control Cholesterol. Avoid a diet high in saturated fat, trans fat, & cholesterol. Limit whole milk & cream, ice cream, butter, egg yolks, processed meats (like sausage and hot dogs), and fatty meats. Choose healthy foods that are low in saturated fat, trans fat and cholesterol which include: Fruits and vegetables, fiber rich grain products (like whole grain pasta and brown rice), lean meat such as chicken, fish, nuts, seeds, and legumes. (3) Eat Better. Eat small portions. Shop at the grocery with a list and do not stray from it. Tips for a healthy diet include: Limit sodium intake to less than 1500mg daily, avoid prepackaged, processed, and fast foods, choose a diet rich in fruits, vegetables, and whole grain, high fiber foods, and limit saturated & cholesterol in your diet. (4) Manage Blood Pressure. If you have high blood pressure, you should have a cuff at home so that you can check your blood pressure regularly. Be sure you have a good cuff. An arm one is generally better than a wrist one. Bring the cuff to a doctor's appointment to validate that the measurements that your cuff are taking are accurate. Take your blood pressure twice daily when you are sitting down and relaxing. Record the numbers in a log and bring this log with you to your doctors' appointments. (5) Lose Weight if your BMI is above 25. A healthy BMI is between 19-25. To calculate Your BMI, you may use a Standard BMI Calculator on the NIH BMI website: <www.nhlbi.nih.gov/guidelines/obesity/BMI/bmicalc.htm>. Weigh oneself daily. If you are overweight, set a goal to lose weight. A pound a week loss if needed is a good target. (6) Reduce Blood Sugar. Limit foods and liquids with "added sugars." (Added sugars include sucrose, fructose, glucose, maltose, dextrose, high fructose corn syrup, corn syrup, concentrated fruit juice and honey). (7) Stop Smoking. If you smoke, quitting smoking is one of the best things that you can do for your health. Smoking increases your risk of heart attack, stroke, and peripheral vascular disease, which is a build-up of plaque in your arteries. Please discard all the cigarettes and lighters in your house. Have a plan for what you will do when you have the urge to smoke. Direct and second- hand smoke shortens your life as well as the lives of your family, friends and others around you. For your health and the health of those around you, please consider quitting! Proper Bending Body Mechanics: Maintain a wide stance with one foot slightly in front of the other. Keep your back straight. Bend utilizing the strength in your hips and knees. Do not bend at the waist. Maintain the lifted object at your waist-level close to your body. Avoid lifting weight that causes immediately pain or pain anywhere in the body afterwards. Smoking/Nicotine If there was ever one thing that you could do to increase your overall health, decrease your risk of cardiovascular problems by about 39% the second you make the choice, it is to STOP SMOKING. Your body's most instant gratification is the second you stop smoking. We have all heard the studies, read the articles but it is true, smoking is extremely bad for your overall health, and moreover it is detrimental to your bone health. Nicotine, IN ANY FORM, kills bone cells, prevents your body from healing fractures, and significantly prolongs healing after surgery. In spine surgery specifically, it increases your risk of not healing your bones to create a fusion and increases your risk of having a revision surgery due to this up to 60%. I know it is hard. I know it feels impossible. But there are ways. Take control of your life. We are here to help you through it. And when you are ready, ask us and we can direct you to help if you desire. Use the START Plan to Quit Smoking (please visit the Helpguide.org website listed below for more information): S = Set a quit date. Choose a date within the next 2 weeks, so you have enough time to prepare without losing your motivation to quit. If you mainly smoke at work, quit on the weekend, so you have a few days to adjust to the change. T = Tell family, friends, and co-workers that you plan to quit. Let your friends and family in on your plan to quit smoking and tell them you need their support and encouragement to stop. Look for a quit leighton who wants to stop smoking as well. You can help each other get through the rough times. A = Anticipate and plan for the challenges you'll face while quitting. Most people who begin smoking again do so within the first 3 months. You can help yourself make it through by preparing ahead for common challenges, such as nicotine withdrawal and cigarette cravings. R = Remove cigarettes and other tobacco products from your home, car, and work. Throw away all your cigarettes (no emergency pack!), lighters, ashtrays, and matches. Wash your clothes and freshen up anything that smells like smoke. Shampoo your car, clean your drapes and carpet, and steam your furniture. T = Talk to your doctor about getting help to quit. Your doctor can prescribe medication to help with withdrawal and suggest other alternatives. If you can't see a doctor, you can get many products over the counter at your local pharmacy or grocery store, including the nicotine patch, nicotine lozenges, and nicotine gum. Resources for Quitting Smoking: <https://www.[place].gov/documents/[facility]/Quit_Tobacco_Resources_for_patients _313480_7.pdf> Supplementation: Take recommended dosages of Vitamin D and Calcium to help fortify your bones and help them to heal. See your health maintenance packet for dosages and recomm ended levels. DVT/VTE prophylaxis: You will be given compression stockings from the hospital. Wear these daily for the first two weeks after surgery. You may take them off at night. You may be prescribed a medication to help thin your blood. Take this as directed. If you are not prescribed this medication, early and frequent ambulation has been shown to be the best prophylaxis to deep vein thrombosis and sequelae related to this event. Procedures: L2-L3 posterior lateral decompression and fusion Patient Condition at Discharge: Good Plan - Discharge Summary Discharge Rx Participant: Yes New Discharge Prescriptions: New cefaDROXiL [Duricef] 500 mg PO Q12HR 5 Days #10 cap Cyclobenzaprine [Flexeril] 10 mg PO BID PRN #30 tab PRN Reason: Muscle Spasm Gabapentin 300 mg PO BID 15 Days #30 cap Sennosides/Docusate Sodium [Senna-S 8.6-50 mg Tablet] 2 each PO DAILY PRN #30 tablet PRN Reason: Constipation No Action oxyCODONE HCL/ACETAMINOPHEN [Percocet 10-325 mg] 1 tab PO Q6HR PRN PRN Reason: Pain Albuterol Inhaler [Ventolin Hfa Inhaler] 1 - 2 puff INHALATION RT-Q6H PRN PRN Reason: Shortness Of Breath Umeclidinium Brm/Vilanterol Tr [Anoro Ellipta 62.5-25 Mcg INH] 1 puff INHALATION DAILY Turmeric Root Extract [Turmeric] 500 mg PO DAILY Alpha Lipoic Acid 50 mg PO DAILY Cholecalciferol [Vitamin D3 (25 Mcg = 1000 Iu)] 25 mcg PO DAILY Calcium Carbonate [Calcium] 600 mg PO DAILY Ascorbic Acid [Vitamin C] 500 mg PO DAILY Tamsulosin [Flomax] 0.4 mg PO HS Mirabegron [Myrbetriq] 25 mg PO DAILY Discharge Medication List oxyCODONE HCL/ACETAMINOPHEN [Percocet 10-325 mg] 1 tab PO Q6HR PRN 09/24/15 [History] Albuterol Inhaler [Ventolin Hfa Inhaler] 1 - 2 puff INHALATION RT-Q6H PRN 10/30/18 [History] Alpha Lipoic Acid 50 mg PO DAILY 03/11/23 [History] Ascorbic Acid [Vitamin C] 500 mg PO DAILY 03/11/23 [History] Calcium Carbonate [Calcium] 600 mg PO DAILY 03/11/23 [History] Cholecalciferol [Vitamin D3 (25 Mcg = 1000 Iu)] 25 mcg PO DAILY 03/11/23 [History] Mirabegron [Myrbetriq] 25 mg PO DAILY 03/11/23 [History] Tamsulosin [Flomax] 0.4 mg PO HS 03/11/23 [History] Turmeric Root Extract [Turmeric] 500 mg PO DAILY 03/11/23 [History] Umeclidinium Brm/Vilanterol Tr [Anoro Ellipta 62.5-25 Mcg INH] 1 puff INHALATION DAILY 03/11/23 [History] Cyclobenzaprine [Flexeril] 10 mg PO BID PRN #30 tab 03/20/23 [Rx] Gabapentin 300 mg PO BID 15 Days #30 cap 03/20/23 [Rx] Sennosides/Docusate Sodium [Senna-S 8.6-50 mg Tablet] 2 each PO DAILY PRN #30 tablet 03/20/23 [Rx] cefaDROXiL [Duricef] 500 mg PO Q12HR 5 Days #10 cap 03/20/23 [Rx] Follow up Appointment(s)/Referral(s): [facility] [NON-STAFF] - As Needed (tapan) Orlando Triplett DO [Doctor of Osteopathic Medicine] - 04/02/23 11:15 am Mathew Michel [NON-STAFF] - As Needed (LSO back brace) Activity/Diet/Wound Care/Special Instructions: Spine Discharge and Recovery Instructions Dressing: Leave your dressing in place for a total of 5 days post operatively. Then you may remove your dressing and leave open to air. Keep the area clean and if not able to keep area clean, then cover with sterile gauze and tape. Showering: You may shower 3 days after your procedure allowing soap and water to run over incision. Do not scrub. Do not soak. Blot dry. Follow up: Please confirm a follow up appointment with your surgeon 3 weeks post operatively. Please make an appointment to follow up with your PCP in 1-2 weeks after surgery for evaluation 3 phase, 3-week plan POST OP WEEKS 1-3 1. Lifting/carrying/pushing/pulling limited to less than 5 pounds. 2. Do not sit for longer than 15 minutes at one time. Get up and walk around. Prolonged sitting is NOT advised. If you lay down, see if you can tolerate laying down on you front (belly side) 3. Walk for periods of 15 minutes = 1 mile but no longer; do it multiple times times each day. 4. Ice your low back after activity. POST OP WEEKS 3-6 1. Lifting limited to less than 20 pounds. 2. Do not sit for longer than 30 minutes at a time. Frequently change positions. Use a sit-to stand workstation or take frequent breaks from sitting if you have returned to work. 3. Walk for 30 minutes each day. If possible, do these three or more times a day POST OP WEEKS 6+ At your 6-week appointment we will give you a physical therapy referral to focus on a core stabilization and strengthening program. You should also work on leg & buttock strengthening, hamstring & quadriceps stretching, and continue a low impact aerobic activity program such as swimming, walking, or riding a stationary bicycle. During the initial 6 weeks after your surgery, you are at the highest risk of re-injuring your spine. You should generally avoid BLTs (bending, lifting and twisting combination motions) and follow the above guidelines to reduce the chance of reinjury. You can anticipate post op appointments in our office at approximately 3 weeks and 6 weeks after your surgery. INCISION CARE: If your incision is not draining you do NOT need to cover it with a dressing. Keep your incision clean, dry and intact. In most cases, we apply skin glue, natasha or sutures to the incision at the time of surgery. This will be like a crust or have the appearance of a scab and will fall off in time on its own. The stitches or natasha need to be removed at 3 weeks post op appointment. You may begin to shower 3 days after surgery (this allows the glue to bravo well). However, please avoid scrubbing the incision site or peeling off any of the skin glue. This will ensure optimal healing of your incision. Also, during this time avoid soaking the incision area in water - this includes swimming pools, hot tubs or baths. No ointments, lotions or oils on the incision until your surgeon allows. Leave natasha, sutures or glue in place. Neurological dysfunction that comes on suddenly can also be a sign of a stroke. Below some common symptoms of a stroke are listed: B - balance difficulty such as sudden onset walking or leaning to one side - NEW E - eye problem such as sudden double vision or trouble seeing on one side - NEW F - Facial weakness or numbness on one side - NEW A - Arm or leg weakness or numbness on one side - NEW S - Slurred speech or difficulty with word finding - NEW T - Time is BRAIN! Call 911 as soon as you recognize these symptoms Diet: Consume a regular diet rich in vegetables and lean protein such as chicken or fish. You should consume in a ratio of approximately 20% fats|40% carbohydrates|40%protein. Vegetables, sweet potatoes, brown rice or quinoa are examples of good carbohydrates. Chips, white bread, cookies and sweets/sugar are examples of bad carbohydrates. Limit your bad carbs, go wild with good carbs. "Life's Simple 7" Guidelines as per [employer] These will help you reclaim your life after surgery and landscaper helper in your recovery, keeping in mind your restrictions. (1) Get Active. Physical activity can help people lose weight, control high blood pressure and cholesterol, feel emotionally better, and sleep better. (2) Control Cholesterol. Avoid a diet high in saturated fat, trans fat, & cholesterol. Limit whole milk & cream, ice cream, butter, egg yolks, processed meats (like sausage and hot dogs), and fatty meats. Choose healthy foods that are low in saturated fat, trans fat and cholesterol which include: Fruits and vegetables, fiber rich grain products (like whole grain pasta and brown rice), lean meat such as chicken, fish, nuts, seeds, and legumes. (3) Eat Better. Eat small portions. Shop at the grocery with a list and do not stray from it. Tips for a healthy diet include: Limit sodium intake to less than 1500mg daily, avoid prepackaged, processed, and fast foods, choose a diet rich in fruits, vegetables, and whole grain, high fiber foods, and limit saturated & cholesterol in your diet. (4) Manage Blood Pressure. If you have high blood pressure, you should have a cuff at home so that you can check your blood pressure regularly. Be sure you have a good cuff. An arm one is generally better than a wrist one. Bring the cuff to a doctor's appointment to validate that the measurements that your cuff are taking are accurate. Take your blood pressure twice daily when you are sitting down and relaxing. Record the numbers in a log and bring this log with you to your doctors' appointments. (5) Lose Weight if your BMI is above 25. A healthy BMI is between 19-25. To calculate Your BMI, you may use a Standard BMI Calculator on the NIH BMI website: <www.nhlbi.nih.gov/guidelines/obesity/BMI/bmicalc.htm>. Weigh oneself daily. If you are overweight, set a goal to lose weight. A pound a week loss if needed is a good target. (6) Reduce Blood Sugar. Limit foods and liquids with "added sugars." (Added sugars include sucrose, fructose, glucose, maltose, dextrose, high fructose corn syrup, corn syrup, concentrated fruit juice and honey). (7) Stop Smoking. If you smoke, quitting smoking is one of the best things that you can do for your health. Smoking increases your risk of heart attack, stroke, and peripheral vascular disease, which is a build-up of plaque in your arteries. Please discard all the cigarettes and lighters in your house. Have a plan for what you will do when you have the urge to smoke. Direct and second- hand smoke shortens your life as well as the lives of your family, friends and others around you. For your health and the health of those around you, please consider quitting! Proper Bending Body Mechanics: Maintain a wide stance with one foot slightly in front of the other. Keep your back straight. Bend utilizing the strength in your hips and knees. Do not bend at the waist. Maintain the lifted object at your waist-level close to your body. Avoid lifting weight that causes immediately pain or pain anywhere in the body afterwards. Smoking/Nicotine If there was ever one thing that you could do to increase your overall health, decrease your risk of cardiovascular problems by about 39% the second you make the choice, it is to STOP SMOKING. Your body's most instant gratification is the second you stop smoking. We have all heard the studies, read the articles but it is true, smoking is extremely bad for your overall health, and moreover it is detrimental to your bone health. Nicotine, IN ANY FORM, kills bone cells, prevents your body from healing fractures, and significantly prolongs healing after surgery. In spine surgery specifically, it increases your risk of not healing your bones to create a fusion and increases your risk of having a revision surgery due to this up to 60%. I know it is hard. I know it feels impossible. But there are ways. Take control of your life. We are here to help you through it. And when you are ready, ask us and we can direct you to help if you desire. Use the START Plan to Quit Smoking (please visit the Helpguide.org website listed below for more information): S = Set a quit date. Choose a date within the next 2 weeks, so you have enough time to prepare without losing your motivation to quit. If you mainly smoke at work, quit on the weekend, so you have a few days to adjust to the change. T = Tell family, friends, and co-workers that you plan to quit. Let your friends and family in on your plan to quit smoking and tell them you need their support and encouragement to stop. Look for a quit leighton who wants to stop smoking as well. You can help each other get through the rough times. A = Anticipate and plan for the challenges you'll face while quitting. Most people who begin smoking again do so within the first 3 months. You can help yourself make it through by preparing ahead for common challenges, such as nicotine withdrawal and cigarette cravings. R = Remove cigarettes and other tobacco products from your home, car, and work. Throw away all your cigarettes (no emergency pack!), lighters, ashtrays, and matches. Wash your clothes and freshen up anything that smells like smoke. Shampoo your car, clean your drapes and carpet, and steam your furniture. T = Talk to your doctor about getting help to quit. Your doctor can prescribe medication to help with withdrawal and suggest other alternatives. If you can't see a doctor, you can get many products over the counter at your local pharmacy or grocery store, including the nicotine patch, nicotine lozenges, and nicotine gum. Resources for Quitting Smoking: <https ://www.[place].gov/documents/[facility]/Quit_Tobacco_Resources_for_patients_313480_7. pdf> Supplementation: Take recommended dosages of Vitamin D and Calcium to help fortify your bones and help them to heal. See your health maintenance packet for dosages and recommended levels. DVT/VTE prophylaxis: You will be given compression stockings from the hospital. Wear these daily for the first two weeks after surgery. You may take them off at night. You may be prescribed a medication to help thin your blood. Take this as directed. If you are not prescribed this medication, early and frequent ambulation has been shown to be the best prophylaxis to deep vein thrombosis and sequelae related to this event. Discharge Disposition: HOME WITH HOME HEALTH SERVICES
[2023-03-20 13:01] VITALS: PULSE 88
--- NOTE | 2023-03-20 13:43 | P.GSCN ---
History of Present Illness Consult date: 03/20/23 Reason for Consult: Postoperative urinary retention Requesting physician: Orlando Triplett History of present illness: The patient is a 62-year-old white male who underwent lumbar laminectomy and fusion March 18 2023. He has been unable to void postoperatively. I am consulted for this reason. The patient reports pre-existing voiding difficulty and is known to Dr. Mcginnis. He last saw Dr. Mcginnis approximately 2 weeks ago in the office. He is being treated with tamsulosin, and has also taken Myrbetriq. He states that his stream is so weak he needs to sit in order to avoid. His catheter was removed this morning. Bladder scan shows a bladder volume of 200-300 mL. He currently feels no urge to void. Review of Systems - Genitourinary Reports as per HPI Past Medical History Past Medical History: COPD, Prostate Disorder Additional Past Medical History / Comment(s): Pneumothorax, Emphesema History of Any Multi-Drug Resistant Organisms: None Reported Past Surgical History: Back Surgery, Orthopedic Surgery Additional Past Surgical History / Comment(s): BACK AND NECK SURG. KNEE SURG. GREAT TOE SURG. Past Anesthesia/Blood Transfusion Reactions: No Reported Reaction Smoking Status: Never smoker - Past Family History Mother Family Medical History: No Reported History Additional Family Medical History / Comment(s): at 42. Father Family Medical History: Cancer, Myocardial Infarction ([place]) Additional Family Medical History / Comment(s): at 67, [place]. prostate cancer Medications and Allergies Home Medications Medication Instructions Recorded Confirmed Type oxyCODONE HCL/ACETAMINOPHEN 1 tab PO Q6HR PRN 09/24/15 03/18/23 History [Percocet 10-325 mg] Albuterol Inhaler [Ventolin Hfa 1 - 2 puff INHALATION RT-Q6H PRN 10/30/18 03/18/23 History Inhaler] Alpha Lipoic Acid 50 mg PO DAILY 03/11/23 03/18/23 History Ascorbic Acid [Vitamin C] 500 mg PO DAILY 03/11/23 03/18/23 History Calcium Carbonate [Calcium] 600 mg PO DAILY 03/11/23 03/18/23 History Cholecalciferol [Vitamin D3 (25 25 mcg PO DAILY 03/11/23 03/18/23 History Mcg = 1000 Iu)] Mirabegron [Myrbetriq] 25 mg PO DAILY 03/11/23 03/18/23 History Tamsulosin [Flomax] 0.4 mg PO HS 03/11/23 03/18/23 History Turmeric Root Extract [Turmeric] 500 mg PO DAILY 03/11/23 03/18/23 History Umeclidinium Brm/Vilanterol Tr 1 puff INHALATION DAILY 03/11/23 03/18/23 History [Anoro Ellipta 62.5-25 Mcg INH] Cyclobenzaprine [Flexeril] 10 mg PO BID PRN #30 tab 03/20/23 Rx Gabapentin 300 mg PO BID 15 Days #30 cap 03/20/23 Rx Sennosides/Docusate Sodium 2 each PO DAILY PRN #30 tablet 03/20/23 Rx [Senna-S 8.6-50 mg Tablet] cefaDROXiL [Duricef] 500 mg PO Q12HR 5 Days #10 cap 03/20/23 Rx Allergies Allergy/AdvReac Type Severity Reaction Status Date / Time Penicillins Allergy Rash/Hives Verified 03/18/23 08:47 shellfish derived [Shellfish] Allergy Anaphylaxis Verified 03/18/23 08:47 Surgical - Exam Vital Signs Temp Pulse Resp BP Pulse Ox 97.5 F L 62 16 172/77 98 03/18/23 08:31 03/18/23 08:31 03/18/23 08:31 03/18/23 08:31 03/18/23 08:31 - General well developed, well nourished, no distress - Respiratory normal respiratory effort - Abdomen Abdomen: soft, non tender, no guarding, no rigid, no rebound - Genitourinary normal penis with no external lesions, testicles non-tender - Psychiatric oriented to time, oriented to person, oriented to place, speech is normal, memory intact Results - Labs 03/19/23 06:00 03/19/23 06:00 Abnormal Lab Results - Last 24 Hours (Table) 03/19/23 Range/Units 06:00 WBC 15.19 H (4.50-10.00) X 10*3/uL RBC 3.64 L (4.40-5.60) X 10*6/uL Hgb 12.0 L (13.0-17.0) d/dL Hct 35.8 L (39.6-50.0) % MCV 98.4 H (80.0-97.0) FL MCH 33.0 H (27.0-32.0) pg Neutrophils # 12.29 H (1.80-7.70) X 10*3/uL Monocytes # 1.34 H (0.20-1.00) X 10*3/uL Eosinophils # 0.01 L (0.04-0.35) X 10*3/uL Diabetes panel 03/19/23 Range/Units 06:00 Sodium 140 (135-145) mmol/L Potassium 4.5 (3.5-5.5) mmol/L Chloride 104 (96-109) mmol/L Carbon Dioxide 24.7 (21.6-31.8) mmol/L BUN 13.6 (9.0-27.0) mg/dL Creatinine 0.9 (0.6-1.5) mg/dL Glucose 105 (70-110) mg/dL Calcium 8.9 (8.7-10.3) mg/dL Calcium panel 03/19/23 Range/Units 06:00 Calcium 8.9 (8.7-10.3) mg/dL Pituitary panel 03/19/23 Range/Units 06:00 Sodium 140 (135-145) mmol/L Potassium 4.5 (3.5-5.5) mmol/L Chloride 104 (96-109) mmol/L Carbon Dioxide 24.7 (21.6-31.8) mmol/L BUN 13.6 (9.0-27.0) mg/dL Creatinine 0.9 (0.6-1.5) mg/dL Glucose 105 (70-110) mg/dL Calcium 8.9 (8.7-10.3) mg/dL Adrenal panel 03/19/23 Range/Units 06:00 Sodium 140 (135-145) mmol/L Potassium 4.5 (3.5-5.5) mmol/L Chloride 104 (96-109) mmol/L Carbon Dioxide 24.7 (21.6-31.8) mmol/L BUN 13.6 (9.0-27.0) mg/dL Creatinine 0.9 (0.6-1.5) mg/dL Glucose 105 (70-110) mg/dL Calcium 8.9 (8.7-10.3) mg/dL Assessment and Plan (1) Postoperative urinary retention Current Visit: Yes Status: Acute Code(s): N99.89 - OTH POSTPROCEDURAL COMPLICATIONS AND DISORDERS OF SYS; R33.8 - OTHER RETENTION OF URINE SNOMED Code(s): 197031657 Plan: I had a lengthy discussion with Mr. Causey. He is concerned about getting home and needing to return to the hospital due to inability to void. In view of this, the Salomon catheter will be replaced and he will follow up with Dr. Mcginnis in 1 week. He has been advised to continue taking tamsulosin, but hold Myrbetriq. He has been instructed to remove the Salomon catheter 8 hours prior to his appointment with Dr. Mcginnis. Time with Patient: Greater than 30
--- NOTE | 2023-03-20 15:45 | P.PN ---
Subjective Progress Note Date: 03/20/23 - Reason for Consult Urinary retention, leukocytosis - History of Present Illness Patient is admitted for L to L3 posterior lateral leg interbody fusion surgery patient is doing clinically well after surgery but didn't pass gas yet. Didn't move his bowel yet. Patient is on multiple pain medications at this time and patient had urinary retention yesterday requiring Salomon catheter which will be removed tomorrow. Patient uses Flomax at home which was resumed. Patient does have some leukocytosis without any evidence of infection at this time patient doesn't have any cough doesn't have any symptoms of UTI although patient is fully catheter in place. 03/20/2023 Patient is seen in follow-up this morning status post laminectomy doing well has been up and walking. Patient having some voiding difficulties and urology was consulted. Patient reports he does take Flomax outpatient and has had this problem previously. Patient is concerned if going home and has not yet voided will need to return to the ER for intervention. Urology recommending placing a Salomon catheter and continuing on Flomax and outpatient follow-up in one week with his urologist Dr. Gallagher. Patient is agreeable to this as he would like to go home. Patient is medically stable for discharge today and has been instructed to follow-up with urology as well as his primary care provider on discharge. Patient is currently afebrile with no reported chest pain or shortness of breath. Patient is tolerating diet with no nausea or vomiting. Review of systems: Constitutional: No reports of fatigue, fever, or chills Cardiovascular: No reports of chest pain or palpitations Respiratory: No reports of shortness of breath or cough GI: No reports of nausea, vomiting, or diarrhea : No reports of dysuria or retention Neurovascular: No reports of weakness or numbness All medications have been reviewed PHYSICAL EXAMINATION: GENERAL: The patient is alert and oriented x3, not in any acute distress. Thin built, Well developed HEENT: Pupils are round and equally reacting to light. EOMI. No scleral icterus. No conjunctival pallor. Normocephalic, atraumatic. No pharyngeal erythema. No thyromegaly. CARDIOVASCULAR: S1 and S2 present. No murmurs, rubs, or gallops. PULMONARY: Chest is clear to auscultation, no wheezing or crackles. ABDOMEN: Soft, nontender, nondistended, normoactive bowel sounds. No palpable organomegaly. MUSCULOSKELETAL: Deferred to orthopedic surgery EXTREMITIES: No cyanosis, clubbing, or pedal edema. NEUROLOGICAL: Gross neurological examination did not reveal any focal deficits. SKIN: No rashes. Assessment : -Urinary retention secondary to surgery, pain medications along with BPH. Continue with Salomon catheter and urology recommending outpatient follow-up -Vertebral fusion surgery: Pain management dvt prophylaxis as per primary s ervice -Leukocytosis reactive secondary to surgery no further intervention is necessary at this time patient doesn't have any evidence of infection at this time -GI prophylaxis -DVT prophylaxis -Full code Plan: Patient seen and evaluated in follow-up with urology evaluation recommending indwelling Salomon catheter as patient is concerned he will require return to the ER with difficulty in urination as patient reports he has had this previously. Patient had his Salomon catheter removed this morning and has yet to void. Patient has a doctor Coury patient with urology and has been instructed to replace the indwelling Salomon catheter and continue with Flomax and see them in the office in one week. Patient has also been instructed to remove the indwelling Salomon catheter 8 hours prior to appointment Incentive spirometer encourage at least 10 times every hour while awake Increased activity with restrictions per orthopedics encouraged Patient instructed to follow-up with primary care provider Plans on discharging today and patient is medically stable for discharge Thank you kindly for this consultation. We will continue to follow with orthopedics during hospitalization. The impression and plan of care has been dictated by Alexa Blancas, Nurse Practitioner as directed. Dr. Julius MD I have performed a history and examination and MDM of this patient, discussed the same with the dictator, and agree with the dictator's assessment and plan as written ,documented as a scribe. Based on total visit time, I have performed more than 50% of the visit. Objective - Vital Signs Vital signs: Vital Signs Temp 99.5 F 03/20/23 06:50 Pulse 91 03/20/23 06:50 Resp 16 03/20/23 06:50 BP 132/78 03/20/23 06:50 Pulse Ox 96 03/20/23 06:50 FiO2 Intake & Output 03/19/23 03/20/23 03/20/23 18:59 06:59 18:59 Output Total 1570 800 Balance -1570 -800 Output: Drainage 70 Lower Back 70 Urine 1500 800 Other: Voiding Method Toilet Urinal # Voids 5 - Labs CBC & Chem 7: 03/19/23 06:00 03/19/23 06:00 Labs: Abnormal Lab Results - Last 24 Hours (Table) 03/19/23 Range/Units 06:00 WBC 15.19 H (4.50-10.00) X 10*3/uL RBC 3.64 L (4.40-5.60) X 10*6/uL Hgb 12.0 L (13.0-17.0) d/dL Hct 35.8 L (39.6-50.0) % MCV 98.4 H (80.0-97.0) FL MCH 33.0 H (27.0-32.0) pg Neutrophils # 12.29 H (1.80-7.70) X 10*3/uL Monocytes # 1.34 H (0.20-1.00) X 10*3/uL Eosinophils # 0.01 L (0.04-0.35) X 10*3/uL
== END 2023-03-20 14:25 | disposition home health service (06) ==
LOC: OR 07:59 → 4SSUR 13:00 → OR 03-19 10:51
PROVIDERS: ADMIT Orthopaedic Surgery; ATTEND Orthopaedic Surgery
DX: M51.16 Intervertebral disc disorders with radiculopathy, lumbar region (principal); M25.78 Osteophyte, vertebrae; N40.1 Benign prostatic hyperplasia with lower urinary tract symptoms; R33.8 Other retention of urine; D72.829 Elevated white blood cell count, unspecified; J44.9 Chronic obstructive pulmonary disease, unspecified; Z88.0 Allergy status to penicillin; Z79.899 Other long term (current) drug therapy
CPT/HCPCS: 22633; 63052; 22840; 22853; 20931; 20936; 96376 ×2; 96365; 96366 ×2; 96372 ×2; 96375; 94640 ×3; 97116; 97161; 80048; 84132; 85025; 85610; 72100; 72131; G0378 ×2; C1713; C1734; J2250; J3370; J0330; J1644 ×2; J1100; J2710; J0690 ×3; J2405; J2001; J3010; J1170 ×3; J2704; J2371

== ENCOUNTER 2023-03-29 16:27 | Emergency (ER) | payer MEDICARE ==
[2023-03-29 16:38] VITALS: RESP 16; TEMP 99.2
[2023-03-29 18:00] LABS: Appearance,Urine Turbid (Clear); Bacteria,Urine Occasional /hpf; Bilirubin,Urine Negative (Negative); Blood,Urine Large (Negative); Color,Urine Yellow; Glucose,Urine (UA) Negative (Negative); Ketones,Urine Negative (Negative); Leukocyte Esterase,Urine Large (Negative); Mucus,Urine Many /hpf; Nitrite,Urine Positive (Negative); Protein,Urine 1+ (Negative); RBC,Urine >182 /hpf (0-5); Specific Gravity,Urine 1.018 (1.001-1.035); Squamous Epithelial Cell,Urine <1 /hpf (0-4); Urobilinogen,Urine <2.0 mg/dL (<2.0); WBC,Urine >182 /hpf (0-5)
[2023-03-29] MEDS ORDERED: CIPROFLOXACIN HCL 500 MG TAB PO STA ×2 (19:39→20:18)
--- NOTE | 2023-03-29 20:03 | ED ---
General Adult HPI - General Chief complaint: Urogenital Stated complaint: Recheck Time Seen by Provider: 03/29/23 16:37 Source: patient, RN notes reviewed Mode of arrival: ambulatory Limitations: no limitations - History of Present Illness Initial comments: 62-year-old who presents emergency department chief complaint of Salomon catheter issues. He reports that he has had urinary frequency develop over the past week. He states that his Salomon catheter is leaking. He reports that he has had it in since his back surgery around 2 weeks ago. He states that he was placed for urinary retention because he has prostate issues. He is scheduled to follow-up with urology next week. He was told to keep the Salomon catheter in until he sees urology. He denies fever, chills, abdominal pain and suprapubic pain, nausea, vomiting. - Related Data Home Medications Medication Instructions Recorded Confirmed oxyCODONE HCL/ACETAMINOPHEN 1 tab PO Q6HR PRN 09/24/15 03/18/23 [Percocet 10-325 mg] Albuterol Inhaler [Ventolin Hfa 1 - 2 puff INHALATION RT-Q6H PRN 10/30/18 03/18/23 Inhaler] Alpha Lipoic Acid 50 mg PO DAILY 03/11/23 03/18/23 Ascorbic Acid [Vitamin C] 500 mg PO DAILY 03/11/23 03/18/23 Calcium Carbonate [Calcium] 600 mg PO DAILY 03/11/23 03/18/23 Cholecalciferol [Vitamin D3 (25 25 mcg PO DAILY 03/11/23 03/18/23 Mcg = 1000 Iu)] Mirabegron [Myrbetriq] 25 mg PO DAILY 03/11/23 03/18/23 Tamsulosin [Flomax] 0.4 mg PO HS 03/11/23 03/18/23 Turmeric Root Extract [Turmeric] 500 mg PO DAILY 03/11/23 03/18/23 Umeclidinium Brm/Vilanterol Tr 1 puff INHALATION DAILY 03/11/23 03/18/23 [Anoro Ellipta 62.5-25 Mcg INH] Previous Rx's Medication Instructions Recorded Cyclobenzaprine [Flexeril] 10 mg PO BID PRN #30 tab 03/20/23 Gabapentin 300 mg PO BID 15 Days #30 cap 03/20/23 Sennosides/Docusate Sodium 2 each PO DAILY PRN #30 tablet 03/20/23 [Senna-S 8.6-50 mg Tablet] cefaDROXiL [Duricef] 500 mg PO Q12HR 5 Days #10 cap 03/20/23 Ciprofloxacin HCl [Cipro] 500 mg PO Q12HR #20 tablet 03/29/23 Allergies Allergy/AdvReac Type Severity Reaction Status Date / Time Penicillins Allergy Rash/Hives Verified 03/18/23 08:47 shellfish derived [Shellfish] Allergy Anaphylaxis Verified 03/18/23 08:47 Review of Systems ROS Statement: Those systems with pertinent positive or pertinent negative responses have been documented in the HPI. ROS Other: All systems not noted in ROS Statement are negative. Past Medical History Past Medical History: COPD Additional Past Medical History / Comment(s): Pneumothorax, Emphesema History of Any Multi-Drug Resistant Organisms: None Reported Past Surgical History: Back Surgery, Orthopedic Surgery Additional Past Surgical History / Comment(s): Neck surg Past Anesthesia/Blood Transfusion Reactions: No Reported Reaction Past Psychological History: No Psychological Hx Reported Smoking Status: Never smoker - Past Family History Mother Family Medical History: No Reported History Additional Family Medical History / Comment(s): at 42. Father Family Medical History: Cancer, Myocardial Infarction ([place]) Additional Family Medical History / Comment(s): at 67, [place]. prostate cancer General Exam Limitations: no limitations General appearance: alert, in no apparent distress Head exam: Present: atraumatic, normocephalic, normal inspection ENT exam: Present: normal exam, mucous membranes moist Respiratory exam: Present: normal lung sounds bilaterally. Absent: respiratory distress, wheezes, rales, rhonchi, stridor Cardiovascular Exam: Present: regular rate, normal rhythm, normal heart sounds. Absent: systolic murmur, diastolic murmur, rubs, gallop, clicks GI/Abdominal exam: Present: soft, normal bowel sounds. Absent: distended, tenderness, guarding, rebound, rigid Back exam: Present: normal inspection Neurological exam: Present: alert, oriented X3 Psychiatric exam: Present: normal affect, normal mood Skin exam: Present: warm, dry, normal color, other (Patient has surgical wound to his back which appears to be healing well). Absent: rash Course Vital Signs 03/29/23 03/29/23 16:32 20:25 Temperature 99.2 F Pulse Rate 92 64 Respiratory 16 16 Rate Blood Pressure 141/62 138/77 O2 Sat by Pulse 96 95 Oximetry Medical Decision Making - Medical Decision Making Was pt. sent in by a medical professional or institution (OLYA Acosta, [facility], urgent care, hospital, or intermediate...) When possible be specific @ -[No] Did you speak to anyone other than the patient for history (EMS, parent, family, police, friend...)? What history was obtained from this source @ -[No] Did you review nursing and triage notes (agree or disagree)? Why? @ -[I reviewed and agree with nursing and triage notes] Were old charts reviewed (outside hosp., previous admission, EMS record, old EKG, old radiological studies, urgent care reports/EKG's, intermediate records)? Report findings @ -[No old charts were reviewed] Differential Diagnosis (chest pain, altered mental status, abdominal pain women, abdominal pain men, vaginal bleeding, weakness, fever, dyspnea, syncope, headache, dizziness, GI bleed, back pain, seizure, CVA, palpatations, mental health, musculoskeletal)? @ -[UTI, bladder spasms, pyelonephritis, this list is not all-inclusive] EKG interpreted by me (3pts min.). @ -[none] X-rays interpreted by me (1pt min.). @ -[None done] CT interpreted by me (1pt min.). @ -[None done] U/S interpreted by me (1pt. min.). @ -[None done] What testing was considered but not performed or refused? (CT, X-rays, U/S, labs)? Why? @ -[None] What meds were considered but not given or refused? Why? @ -[None] Did you discuss the management of the patient with other professionals (professionals i.e. OLYA Acosta, [facility] [employer], lab, RT, psych nurse, social work supervisor, office supervisor, teacher, articulation officer, case technician)? Give summary @ -[No] Was smoking cessation discussed for >3mins.? @ -[No] Was critical care preformed (if so, how long)? @ -[No] Were there social determinants of health that impacted care today? How? (Homelessness, low income, unemployed, alcoholism, drug addiction, transportation, low edu. Level, literacy, decrease access to med. care, [place] [facility], rehab)? @ -[No] Was there de-escalation of care discussed even if they declined (Discuss DNR or withdrawal of care, Hospice)? DNR status @ -[No] What co-morbidities impacted this encounter? (DM, HTN, Smoking, COPD, CAD, Cancer, CVA, ARF, Chemo, Hep., AIDS, mental health diagnosis, sleep apnea, morbid obesity)? @ -[None] Was patient admitted / discharged? Hospital course, mention meds given and route, prescriptions, significant lab abnormalities, going to OR and other pertinent info. @ -[Discharged. Patient presented to emergency department chief complaint of leakage around his Salomon catheter. He does admit to urinary frequency. UA was obtained which shows large blood, large leukocyte esterase, greater than 182 and a positive nitrite, WBC this will be sent for urine culture. Patient will be started on antibiotics for urinary tract infection. He'll be started on ciprofloxacin as he has indwelling Salomon catheter. This was replaced. He states that he continues to have leakage but it is improved. He is going to follow-up with urology as scheduled. Patient was given a dose of Cipro in the ED and 2 doses given to him to take home and take in the a.m. and p.m. tomorrow. Prescription sent the patient's pharmacy to [facility] on Friday. Patient stable at time of discharge. Case discussed with Dr. Blank] Undiagnosed new problem with uncertain prognosis? @ -[No] Drug Therapy requiring intensive monitoring for toxicity (Heparin, Nitro, Insulin, Cardizem)? @ -[No] Were any procedures done? @ -[No] Diagnosis/symptom? @ -[Urinary tract infection] Acute, or Chronic, or Acute on Chronic? @ -Acute Uncomplicated (without systemic symptoms) or Complicated (systemic symptoms)? @ -uncomplicated Side effects of treatment? @ -[No] Exacerbation, Progression, or Severe Exacerbation? @ -[No] Poses a threat to life or bodily function? How? (Chest pain, [place], [place], pneumonia, PE, COPD, DKA, ARF, appy, cholecystitis, CVA, Diverticulitis, Homicidal, Suicidal, threat to staff... and all critical care pts) @ -[No] - Lab Data Lab Results 03/29/23 Range/Units 17:32 Urine Color Yellow Urine Appearance Turbid (Clear) Urine pH 8.0 (5.0-8.0) Ur Specific [place] 1.018 (1.001-1.035) Urine Protein 1+ H (Negative) Urine Glucose (UA) Negative (Negative) Urine Ketones Negative (Negative) Urine Blood Large H (Negative) Urine Nitrite Positive (Negative) Urine Bilirubin Negative (Negative) Urine Urobilinogen <2.0 (<2.0) mg/dL Ur Leukocyte Esterase Large H (Negative) Urine RBC >182 H (0-5) /hpf Urine WBC >182 H (0-5) /hpf Ur Squamous Epith Cells <1 (0-4) /hpf Urine Bacteria Occasional H (None) /hpf Urine Mucus Many H (None) /hpf Disposition Clinical Impression: UTI (urinary tract infection) Disposition: HOME SELF-CARE Condition: Stable Instructions (If sedation given, give patient instructions): Urinary Tract Infection in Men (ED) Additional Instructions: supervisor advice antibiotics and take to completion. Follow-up with urology as scheduled. Return to the emergency department for new or worsening symptoms. Prescriptions: Ciprofloxacin HCl [Cipro] 500 mg PO Q12HR #20 tablet Is patient prescribed a controlled substance at d/c from ED?: No Referrals: Doron Long MD [Primary Care Provider] - 1-2 days
[2023-03-29 20:41] VITALS: BP 138/77; PULSE 64
== END 2023-03-29 20:36 | disposition home or self-care (01) ==
LOC: EC 16:27
DX: N39.0 Urinary tract infection, site not specified (principal); J44.9 Chronic obstructive pulmonary disease, unspecified; Z79.899 Other long term (current) drug therapy
CPT/HCPCS: 51702; 81001; 87077; 87086; 87186; 99283

== ENCOUNTER → 2023-12-30 | Outpatient (CLI) | payer MEDICARE ==
--- NOTE | 2023-12-30 20:35 | US ---
EXAMINATION TYPE: US thyroid st tissue head/neck DATE OF EXAM: 12/30/2023 COMPARISON: NONE EXAMINATION TYPE: US thyroid st tissue head/neck DATE OF EXAM: 12/30/2023 COMPARISON: NONE CLINICAL INDICATION: Male, 63 years old with history of R59.0 LOCALIZED ENLARGED LYMPH NODES; ? Eczem a rash to posterior mid skull with fluid leak x 3 months TECHNIQUE: FINDINGS: Lymph nodes noted at patients AOC Largest left = 1.2 x 0.3 x 0.9 cm Largest right = 1.2 x 0.4 x 1.0 cm IMPRESSION: Multiple small nonpathologic sized shotty lymph nodes as discussed above. Possibly react jeffrey.
== END | disposition home or self-care (01) ==
LOC: RADUSWWP 16:02
PROVIDERS: ATTEND Family Medicine
DX: R59.0 Localized enlarged lymph nodes (principal)
CPT/HCPCS: 76536

== ENCOUNTER 2024-01-02 06:57 | Emergency (ER) | payer MEDICARE ==
[2024-01-02 07:01] VITALS: RESP 18
[2024-01-02] MEDS: ONDANSETRON 4 MG/2 ML VIAL IVP STA (07:34)
[2024-01-02 07:35] LABS: Basophils % (A) 0 %; Eosinophils # (A) 0.1 k/uL (0-0.7); Eosinophils % (A) 1 %; HCT 43.7 % (39.0-53.0); HGB 14.5 gm/dL (13.0-17.5); Lymphocytes # (A) 1.3 k/uL (1.0-4.8); Lymphocytes % (A) 9 %; MCH 32.4 pg (25.0-35.0); MCHC 33.3 g/dL (31.0-37.0); MCV 97.1 fL (80.0-100.0); Mean Platelet Volume 7.7; Monocytes # (A) 0.7 k/uL (0-1.0); Monocytes % (A) 5 %; Neutrophils % (A) 84 %; Platelet Count 418 k/uL (150-450); RBC 4.49 m/uL (4.30-5.90); RDW 13.5 % (11.5-15.5); WBC 14.2 k/uL (3.8-10.6)
[2024-01-02] MEDS: SODIUM CHLORIDE 0.9% 1,000 ML IV STA (07:35)
--- NOTE | 2024-01-02 07:47 | ED ---
Nausea/Vomiting/Diarrhea HPI - General Chief complaint: Nausea/Vomiting/Diarrhea Stated complaint: NVD Time Seen by Provider: 01/02/24 07:11 Source: patient, RN notes reviewed Mode of arrival: ambulatory Limitations: no limitations - History of Present Illness Initial comments: 63-year-old male presents emergency room treatment of nausea vomiting diarrhea. He states he started not feeling well yesterday afternoon around 6 PM is when vomiting having diarrhea abdominal cramping-cold flashes, chills. Patient states he had episode like this 1 week ago also. He denies any chest pain he did has diffuse abdominal pain, cramping. - Related Data Home Medications Medication Instructions Recorded Confirmed oxyCODONE HCL/ACETAMINOPHEN 1 tab PO Q6HR PRN 09/24/15 03/18/23 [Percocet 10-325 mg] Albuterol Inhaler [Ventolin Hfa 1 - 2 puff INHALATION RT-Q6H PRN 10/30/18 03/18/23 Inhaler] Alpha Lipoic Acid 50 mg PO DAILY 03/11/23 03/18/23 Ascorbic Acid [Vitamin C] 500 mg PO DAILY 03/11/23 03/18/23 Calcium Carbonate [Calcium] 600 mg PO DAILY 03/11/23 03/18/23 Cholecalciferol [Vitamin D3 (25 25 mcg PO DAILY 03/11/23 03/18/23 Mcg = 1000 Iu)] Mirabegron [Myrbetriq] 25 mg PO DAILY 03/11/23 03/18/23 Tamsulosin [Flomax] 0.4 mg PO HS 03/11/23 03/18/23 Turmeric Root Extract [Turmeric] 500 mg PO DAILY 03/11/23 03/18/23 Umeclidinium Brm/Vilanterol Tr 1 puff INHALATION DAILY 03/11/23 03/18/23 [Anoro Ellipta 62.5-25 Mcg INH] Previous Rx's Medication Instructions Recorded Cyclobenzaprine [Flexeril] 10 mg PO BID PRN #30 tab 03/20/23 Gabapentin 300 mg PO BID 15 Days #30 cap 03/20/23 Sennosides/Docusate Sodium 2 each PO DAILY PRN #30 tablet 03/20/23 [Senna-S 8.6-50 mg Tablet] cefaDROXiL [Duricef] 500 mg PO Q12HR 5 Days #10 cap 03/20/23 Ciprofloxacin HCl [Cipro] 500 mg PO Q12HR #20 tablet 03/29/23 Ondansetron Odt [Zofran Odt] 4 mg PO Q8HR PRN #10 tab 01/02/24 Allergies Allergy/AdvReac Type Severity Reaction Status Date / Time Penicillins Allergy Rash/Hives Verified 01/02/24 07:01 shellfish derived [Shellfish] Allergy Anaphylaxis Verified 01/02/24 07:01 Review of Systems ROS Statement: Those systems with pertinent positive or pertinent negative responses have been documented in the HPI. ROS Other: All systems not noted in ROS Statement are negative. Past Medical History Past Medical History: COPD Additional Past Medical History / Comment(s): Pneumothorax, Emphesema History of Any Multi-Drug Resistant Organisms: None Reported Past Surgical History: Back Surgery, Orthopedic Surgery Additional Past Surgical History / Comment(s): Neck surg Past Anesthesia/Blood Transfusion Reactions: No Reported Reaction Past Psychological History: No Psychological Hx Reported Smoking Status: Never smoker - Past Family History Mother Family Medical History: No Reported History Additional Family Medical History / Comment(s): at 42. Father Family Medical History: Cancer, Myocardial Infarction ([place]) Additional Family Medical History / Comment(s): at 67, [place] prostate cancer General Exam - General Exam Comments Initial Comments: Visual Physical Exam Vital signs reviewed General: Well-appearing, nontoxic, no acute distress. Head: Normocephalic, atraumatic Eyes: PERRLA, EOMI ENT: Airway patent Chest: Nonlabored breathing Skin: No visual rash, normal skin tone Neuro: Alert and oriented 3 Musculoskeletal: No gross abnormalities Limitations: no limitations General appearance: alert, in no apparent distress Head exam: Present: atraumatic, normocephalic, normal inspection Respiratory exam: Present: normal lung sounds bilaterally. Absent: respiratory distress, wheezes, rales, rhonchi, stridor Cardiovascular Exam: Present: regular rate, normal rhythm, normal heart sounds. Absent: systolic murmur, diastolic murmur, rubs, gallop, clicks GI/Abdominal exam: Present: soft, tenderness, normal bowel sounds. Absent: distended, guarding, rebound, rigid Course Vital Signs 01/02/24 06:58 Temperature 98.3 F Pulse Rate 100 Respiratory 18 Rate Blood Pressure 148/73 O2 Sat by Pulse 97 Oximetry Medical Decision Making - Medical Decision Making I completed the quick note portion of this chart signed Sriram Nino PA-C Was pt. sent in by a medical professional or institution ([facility] Acosta, [employer], urgent care, hospital, or half-way...) When possible be specific @ -No Did you speak to anyone other than the patient for history (EMS, parent, family, police, friend...)? What history was obtained from this source @ -No Did you review nursing and triage notes (agree or disagree)? Why? @ -I reviewed and agree with nursing and triage notes Were old charts reviewed (outside hosp., previous admission, EMS record, old EKG, old radiological studies, urgent care reports/EKG's, half-way records)? Report findings @ -No old charts were reviewed Differential Diagnosis (chest pain, altered mental status, abdominal pain women, abdominal pain men, vaginal bleeding, weakness, fever, dyspnea, syncope, headache, dizziness, GI bleed, back pain, seizure, CVA, palpatations, mental health, musculoskeletal)? @ -Differential Abdominal Pain Men: Appendicitis, cholecystitis, diverticulosis, ischemic bowel, pancreatitis, hepatitis, UTI, gastroenteritis, AAA, incarcerated hernia, bowel obstruction, constipation, inflammatory bowel, hepatitis, peptic ulcer disease, splenic infarction, perforated viscus, testicular torsion, this is not meant to be an all-inclusive list EKG interpreted by me (3pts min.). @ -None X-rays interpreted by me (1pt min.). @ -None done CT interpreted by me (1pt min.). @ -CT abdomen pelvis shows no acute intra-abdominal process, colonic diverticulosis, stable hardware and lumbar U/S interpreted by me (1pt. min.). @ -None done What testing was considered but not performed or refused? (CT, X-rays, U/S, labs)? Why? @ -None What meds were considered but not given or refused? Why? @ -None Did you discuss the management of the patient with other professionals (professionals i.e. OLYA Acosta, [employer]ER, lab, RT, psych nurse, social worker assistant, holistic nutritionist, teacher, strategic debriefing officer, classification case manager)? Give summary @ -No Was smoking cessation discussed for >3mins.? @ -No Was critical care preformed (if so, how long)? @ -No Were there social determinants of health that impacted care today? How? (Homelessness, low income, unemployed, alcoholism, drug addiction, transportation, low edu. Level, literacy, decrease access to med. care, retirement, rehab)? @ -No Was there de-escalation of care discussed even if they declined (Discuss DNR or withdrawal of care, Hospice)? DNR status @ -No What co-morbidities impacted this encounter? (DM, HTN, Smoking, COPD, CAD, Cancer, CVA, ARF, Chemo, Hep., AIDS, mental health diagnosis, sleep apnea, morbid obesity)? @ -None Was patient admitted / discharged? Hospital course, mention meds given and route, prescriptions, significant lab abnormalities, going to OR and other pertinent info. @ -Discharge patient feels great improved with IV fluids antiemetics patient has no other acute findings patient is discharged in stable condition with antiemetics and close follow-up Undiagnosed new problem with uncertain prognosis? @ -No Drug Therapy requiring intensive monitoring for toxicity (Heparin, Nitro, Insulin, Cardizem)? @ -No Were any procedures done? @ -No Diagnosis/symptom? @ -Gastroenteritis Acute, or Chronic, or Acute on Chronic? @ -acute Uncomplicated (without systemic symptoms) or Complicated (systemic symptoms)? @ -uncomplicated Side effects of treatment? @ -No Exacerbation, Progression, or Severe Exacerbation? @ -No Poses a threat to life or bodily function? How? (Chest pain, [place], [place], pneumonia, PE, COPD, DKA, ARF, appy, cholecystitis, CVA, Diverticulitis, Homicidal, Suicidal, threat to staff... and all critical care pts) @ -No - Lab Data Result diagrams: 01/02/24 07:22 01/02/24 07:22 Lab Results 01/02/24 01/02/24 01/02/24 Range/Units 07:22 07:22 07:22 WBC 14.2 H (3.8-10.6) k/uL RBC 4.49 (4.30-5.90) m/uL Hgb 14.5 (13.0-17.5) gm/dL Hct 43.7 (39.0-53.0) % MCV 97.1 (80.0-100.0) fL MCH 32.4 (25.0-35.0) pg MCHC 33.3 (31.0-37.0) g/dL RDW 13.5 (11.5-15.5) % Plt Count 418 (150-450) k/uL MPV 7.7 Neutrophils % 84 % Lymphocytes % 9 % Monocytes % 5 % Eosinophils % 1 % Basophils % 0 % Neutrophils # 12.0 H (1.3-7.7) k/uL Lymphocytes # 1.3 (1.0-4.8) k/uL Monocytes # 0.7 (0-1.0) k/uL Eosinophils # 0.1 (0-0.7) k/uL Basophils # 0.0 (0-0.2) k/uL Sodium 138 (137-145) mmol/L Potassium 3.9 (3.5-5.1) mmol/L Chloride 98 (98-107) mmol/L Carbon Dioxide 18 L (22-30) mmol/L Anion Gap 22 mmol/L BUN 15 (9-20) mg/dL Creatinine 0.75 (0.66-1.25) mg/dL Est GFR (CKD-EPI)AfAm >90 (>60 ml/min/1.73 sqM) Est GFR (CKD-EPI)NonAf >90 (>60 ml/min/1.73 sqM) Glucose 212 H (74-99) mg/dL Calcium 9.8 (8.4-10.2) mg/dL Total Bilirubin 1.0 (0.2-1.3) mg/dL AST 26 (17-59) U/L ALT 23 (4-49) U/L Alkaline Phosphatase 97 (38-126) U/L Total Protein 7.7 (6.3-8.2) g/dL Albumin 4.8 (3.5-5.0) g/dL Lipase 36 (23-300) U/L Influenza Type A (PCR) Not Detected (Not Detectd) Influenza Type B (PCR) Not Detected (Not Detectd) RSV (PCR) Not Detected (Not Detectd) SARS-CoV-2 (PCR) Not Detected (Not Detectd) Disposition Clinical Impression: Gastroenteritis Disposition: HOME SELF-CARE Condition: Stable Instructions (If sedation given, give patient instructions): Acute Nausea and Vomiting (ED) Additional Instructions: Please return to the Emergency Department if symptoms worsen or any other concerns. Prescriptions: Ondansetron Odt [Zofran Odt] 4 mg PO Q8HR PRN #10 tab PRN Reason: Nausea Is patient prescribed a controlled substance at d/c from ED?: No Referrals: Doron Long MD [Primary Care Provider] - 1-2 days Time of Disposition: 10:11
[2024-01-02 07:57] LABS: AST 26 U/L (17-59); African American GFR (CKD) >90 (>60 ml/min/1.73 sqM); Albumin 4.8 g/dL (3.5-5.0); Alkaline Phosphatase 97 U/L (38-126); Blood Urea Nitrogen 15 mg/dL (9-20); Calcium 9.8 mg/dL (8.4-10.2); Carbon Dioxide 18 mmol/L (22-30); Chloride 98 mmol/L (98-107); Glucose 212 mg/dL (74-99); Lipase 36 U/L (23-300); Non-African American GFR(CKD) >90 (>60 ml/min/1.73 sqM); Total Protein 7.7 g/dL (6.3-8.2)
[2024-01-02 08:04] LABS: ALT 23 U/L (4-49)
[2024-01-02 08:23] LABS: Anion Gap 22 mmol/L; Potassium 3.9 mmol/L (3.5-5.1); Sodium 138 mmol/L (137-145)
--- NOTE | 2024-01-02 09:23 | CT ---
EXAMINATION TYPE: CT abdomen pelvis w con CT DLP: 643.2 mGycm, Automated exposure control for dose reduction was used. DATE OF EXAM: 01/02/2024 9:03 AM COMPARISON: 01/24/2023 CLINICAL INDICATION:Male, 63 years old with history of pain; abd pain TECHNIQUE: Axial CT abdomen pelvis w con;Sagittal and coronal reformats were created on a separate w orkstation. Contrast used:100 mL of Isovue 300 with IV Contrast, (none if empty) Oral contrast used: without Oral Contrast (none if empty) FINDINGS: LOWER CHEST: Unremarkable ABDOMEN LIVER: Unremarkable GALLBLADDER AND BILE DUCTS: Unremarkable. PANCREAS: Unremarkable. SPLEEN: Unremarkable. ADRENAL GLANDS: Unremarkable. KIDNEYS AND URETERS: No evidence of hydronephrosis or renal calculus. The ureters are unremarkable. Right renal cyst. Left renal peripelvic cysts. PELVIS BLADDER: Unremarkable REPRODUCTIVE: Unremarkable. ABDOMEN & PELVIS STOMACH AND BOWEL: No evidence of bowel obstruction. Scattered colonic diverticula. The appendix is n ormal. PERITONEUM/RETROPERITONEUM: No evidence of pneumoperitoneum or free fluid. VASCULATURE: No evidence of aortic aneurysm. MUSCULOSKELETAL: No acute osseous abnormalities, postsurgical changes to the back with hardware at L5 -S1 and L1-L2. Discectomy at L1-L2. Discectomy at L5-S1. LYMPH NODES: No gross evidence for lymphadenopathy. SOFT TISSUE/ABDOMINAL WALL: Metallic foreign body within the right buttock. IMPRESSION: 1. No evidence for acute abdominal process. The appendix is normal. No obstructive uropathy. 2. Post surgical changes of the spine with hardware intact. 3. Colonic diverticulosis.
[2024-01-02 09:58] LABS: Appearance,Urine Clear (Clear); Bilirubin,Urine Negative (Negative); Blood,Urine Trace (Negative); Color,Urine Colorless; Glucose,Urine (UA) Trace (Negative); Ketones,Urine 1+ (Negative); Leukocyte Esterase,Urine Negative (Negative); Mucus,Urine Rare /hpf; Nitrite,Urine Negative (Negative); PH, Urine 6.5 (5.0-8.0); Protein,Urine Trace (Negative); RBC,Urine 2 /hpf (0-5); Urobilinogen,Urine <2.0 mg/dL (<2.0); WBC,Urine 1 /hpf (0-5)
[2024-01-02 10:15] LABS: Specific Gravity,Urine 1.043 (1.001-1.035)
[2024-01-02 10:47] VITALS: BP 138/72; PULSE 91; TEMP 98.1
== END 2024-01-02 10:46 | disposition home or self-care (01) ==
LOC: EC 06:57
DX: K52.9 Noninfective gastroenteritis and colitis, unspecified (principal); K57.30 Diverticulosis of large intestine without perforation or abscess without bleeding; Z88.0 Allergy status to penicillin; Z91.013 Allergy to seafood
CPT/HCPCS: 36415; 80053; 83690; 85025; 81001; 87636; 74177; 99284; 96374; 96361; J2405; Q9967

== ENCOUNTER → 2024-01-22 | Outpatient (CLI) | payer MEDICARE ==
--- NOTE | 2024-02-18 15:28 | US ---
EXAMINATION TYPE: US abdomen complete DATE OF EXAM: 01/22/2024 COMPARISON: CT 01/02/2024 CLINICAL INDICATION: 63-year-old male abdominal pain TECHNIQUE: Multiple sonographic images of the abdomen are obtained. FINDINGS: The majority of the pancreas is last and shows no gross abnormality. Ectatic proximal abdominal aorta 2.9 cm. Hepatic IVC within normal limits. Slightly echogenic appearance to the liver with a hypoechoic area measuring 2.9 cm annia hepatis, pos sible fatty sparing. No other focal lesions are seen. No abnormal gallbladder distention, wall thickening, pericholecystic fluid, or shadowing calculi. Bile duct normal caliber at 4.2 mm. Right kidney measures 11.7 cm without hydronephrosis. There is a lower pole cortical cyst measuring 3 .9 cm. Left kidney measures 10.4 cm without hydronephrosis. Spleen normal size at 10.4 cm. IMPRESSION: 1. Suspect at least mild underlying hepatic steatosis. The hypoechoic area at the annia hepatis likel y represents focal fatty sparing. Correlate with LFTs, lipid profile, and patient risk factors. 2. No gallstones or biliary ductal dilatation. 3. A lower pole right renal cyst measuring 3.9 cm.
== END | disposition home or self-care (01) ==
LOC: RADUSWWP 11:06
PROVIDERS: ATTEND Family Medicine
DX: N28.1 Cyst of kidney, acquired (principal); R10.13 Epigastric pain
CPT/HCPCS: 76700

== ENCOUNTER → 2024-09-01 | Outpatient (CLI) | payer MEDICARE ==
--- NOTE | 2024-09-01 11:24 | US ---
EXAMINATION TYPE: US carotid duplex BILAT DATE OF EXAM: 09/01/2024 COMPARISON: NONE CLINICAL INDICATION: Male, 63 years old with history of G45.9 TIA; Loss of balance; Former smoker x 9 years; New onset recurring headaches Additional History: .... TECHNIQUE: Grayscale, color Doppler and spectral Doppler evaluation of the bilateral carotid systems and vertebral arteries. Indirect Doppler criteria was utilized. 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 Color Doppler imaging shows patency with blood flow throughout the carotid artery. Spectral waveforms are within normal limits. IMPRESSION: Right: No hemodynamically significant stenosis. Left: No hemodynamically significant stenosis. Criteria for Assigning % of Stenosis / Diameter reduction (Estimation based on the indirect measurements of the internal carotid artery velocities (ICA PSV). 1. Normal (no stenosis)=ICA PSV < 180 cm/s: ratio < 2.0: ICA EDV<40 cm/s. 2. Less than 50% stenosis=ICA PSV < 180 cm/s: ratio < 2.0: ICA EDV<40 cm/s. 3. 50 to 69% stenosis=ICA PSV of 180 to 230 cm/s: ration 2.0 ? 4.0: ICA EDV 40-100 cm/s. PSV 125-180 cm/sec and ICA/CCA PSV Ratio ? 2.0 is also consistent with 50-69% stenosis 4. Greater than 70% stenosis to near occlusion= ICA PSV > 230 cm/s: ratio > 4.0: ICA EDV > 100 cm/s. 5. Near occlusion= ICA PSV velocities may be low or undetectable: variable ratio and ICA EDV. 6. Total occlusion=unable to detect flow. [facility], , 09/01/2024 11:21 AM
== END | disposition home or self-care (01) ==
LOC: RADUSWWP 10:53
PROVIDERS: ATTEND Family Medicine
DX: G45.9 Transient cerebral ischemic attack, unspecified (principal)
CPT/HCPCS: 93880

== ENCOUNTER → 2024-11-11 | Outpatient (CLI) | payer MEDICARE ==
--- NOTE | 2024-11-11 14:20 | CT ---
EXAMINATION TYPE: CT brain wo con DATE OF EXAM: 11/11/2024 COMPARISON: None CLINICAL INDICATION: Male, 64 years old with history of G45.9 TIA; PHH, headache, loss of balance pos t head injury CT DLP: 1156 mGycm Automated exposure control for dose reduction was used. Findings: The ventricles, basal cisterns and sulci over the convexities are within normal limits and there is n o mass effect or shift of midline structures. No abnormal density is seen throughout the brain parenchyma and there is no acute intra or extra-axia l hemorrhage. The posterior fossa including the brainstem, fourth ventricle and cerebellar pontine angles appear no rmal. Intraorbital contents appear normal and symmetric. Visualized paranasal sinuses and mastoid air cells are well aerated. The calvarium is intact. IMPRESSION: No significant abnormality seen. There is no acute bleed or mass effect. [facility], , 11/11/2024 2:18 PM
== END | disposition home or self-care (01) ==
LOC: RADCTMAIN 12:58
PROVIDERS: ATTEND Family Medicine
DX: G45.9 Transient cerebral ischemic attack, unspecified (principal)
CPT/HCPCS: 70450